=== PATIENT | female | born 1965 | race Caucasian/White ===

== ENCOUNTER → 2021-11-23 10:37 | Outpatient (BNVA) | payer OTHER, SELFPAY | PROVIDERS: PCP Internal Medicine; Visit Provider Nurse Practitioner Family | DX: R51.9 Headache, unspecified (principal); Z79.899 Other long term (current) drug therapy | CPT/HCPCS: 99212 ==

== ENCOUNTER 2022-03-19 14:11 | Outpatient (REF) | payer OTHER, SELFPAY ==
--- NOTE | ~2022-03-19 | MR_ITS ---
EXAMINATION: MR LUMBAR SPINE WITHOUT CONTRAST CLINICAL INFORMATION: 57-year-old with self-reported low back pain and bilateral radicular symptoms. COMPARISON: None TECHNIQUE: MRI of the lumbar spine was obtained using routine sequences without contrast. FINDINGS: CORONAL ALIGNMENT: There is moderate thoracolumbar levoscoliosis, convex to the left at L1-L2. SAGITTAL ALIGNMENT: The lumbosacral spine is anatomically aligned in the sagittal plane. LUMBOSACRAL JUNCTION: Normal. Five dom-adh-xgftwqd lumbar-type vertebral bodies. VERTEBRAL BODIES: Normal height. DISC SPACES AND ENDPLATES: Vwvc-cw-ubbodwuv intervertebral disc space height loss at L4-L5 with disc desiccation. Remaining intervertebral disc space heights are well maintained. There is disc desiccation at L1-L2. Peyi-fa-gwcjhnqr anterolateral spondylosis is noted, asymmetric to the right, at L1-L2, L2-L3 and L3-L4. SPINAL CANAL: No abnormal developmental findings. BONE MARROW: No suspicious marrow-replacing process or bone marrow edema. Minor type I degenerative marrow signal changes along the endplates anteriorly at L2-L3 and minor type II signal changes at L2-L3 and L4-L5. CONUS MEDULLARIS: Terminates at T12-L1. Morphology and signal are normal. INTRADURAL NERVE ROOTS: Within normal limits. L5-S1: Shallow right subarticular to foraminal disc protrusion noted with tiny annular fissure noted without neural impingement. Right paravertebral disc osteophyte complex also noted. Xgvu-dx-hvulpbsp left-sided facet arthropathy noted. No significant canal or neural foraminal stenosis. L4-L5: Small central disc protrusion with mild flattening of the central dural sac with T2 hyperintensity. No significant canal compromise. There is a broad-based left subarticular to inferior foraminal disc herniation without neural impingement. There is a mild right subarticular to foraminal disc protrusion without neural impingement. There is minor facet arthrosis bilaterally with mild bilateral foraminal narrowing without neural impingement. L3-L4: Mild, shallow left subarticular to foraminal disc protrusion without neural impingement. No significant facet arthrosis, canal or neural foraminal stenosis. L2-L3: Small right paramedian to subarticular disc protrusion without neural impingement. Very small left inferior foraminal disc protrusion without neural impingement. No significant facet arthrosis, canal or neural foraminal stenosis. L1-L2: Minor right paramedian disc osteophyte complex and tiny left foraminal disc protrusion. No facet arthrosis, canal or neural foraminal stenosis. T12-L1: Normal disc contour. No facet arthrosis, canal or neural foraminal stenosis. PARASPINAL/RETROPERITONEAL: The paravertebral soft tissues appear unremarkable. Subcentimeter bilateral simple-appearing renal cysts. Limited evaluation.?No specific follow up recommended based on the current ACR Best Practice Guidelines.? MR/MR lumbar spine wo con IMPRESSION: 1. Moderate thoracolumbar levoscoliosis with otherwise normal spinal alignment. 2. Multilevel spondylosis and discogenic degenerative change as described above, with multilevel disc protrusions without definite neural impingement as detailed by level above. 3. Tbvi-ho-dtamdlxt facet arthrosis on the left at L5-S1 and minor facet arthrosis at L4-L5 bilaterally. No significant lumbar canal or neural foraminal stenosis.
== END 2022-03-19 14:12 | disposition home or self-care (01) ==
LOC: HO.MRI 14:11
PROVIDERS: Visit Provider Nurse Practitioner Family
DX: M54.50 Low back pain, unspecified (principal); R20.2 Paresthesia of skin
CPT/HCPCS: 72148

== ENCOUNTER 2022-05-24 13:50 | Outpatient (REF) | payer OTHER, SELFPAY ==
--- NOTE | ~2022-05-24 | XR_ITS ---
EXAMINATION: XR CERVICAL SPINE CLINICAL INFORMATION: Cervicalgia. COMPARISON: None. TECHNIQUE: AP, lateral (flexion, neutral, extension), both oblique, swimmers, Fuchs, and open mouth odontoid views of the cervical spine. FINDINGS: 3 mm anterolisthesis of C3 on C4 increases to 5 mm with flexion and remains 3 mm with extension. 1 mm anterolisthesis of C7 on T1 is unchanged with flexion and extension. Alignment is otherwise normal. Vertebral body heights are normal. No fractures are evident. There is also intervertebral disc height at most levels, most notably at C5-C6 and C6-C7, associated with prominent endplate osteophytes and uncovertebral osteophytes as well as endplate sclerosis. There is more mild degenerative disc disease at C3-C4, C4-C5, and C7-T1. There is multilevel facet arthropathy, most notably on the left at C2-C3 and C3-C4, the right at C4-C5 and C5-C6, and C7-T1 bilaterally. Uncovertebral osteophytes produce neural foraminal encroachment at C5-C6 and C6-C7 bilaterally. Prevertebral soft tissues are normal. XR/XR cervical spine w flex/ext IMPRESSION: Degenerative disc disease is most notable at C5-C6 and C6-C7 with bilateral neural foraminal encroachment by uncovertebral osteophytes. Moderate multilevel facet arthropathy. Anterolisthesis of C3 on C4 by 3 mm increases to 5 mm with flexion.
== END 2022-05-24 13:51 | disposition home or self-care (01) ==
LOC: HO.XRAY 13:50
PROVIDERS: PCP Internal Medicine; Visit Provider Nurse Practitioner Family
DX: M54.2 Cervicalgia (principal); M54.50 Low back pain, unspecified
CPT/HCPCS: 72052

== ENCOUNTER 2022-07-23 10:17 | Outpatient (REF) | payer OTHER, SELFPAY ==
--- NOTE | ~2022-07-23 | MR_ITS ---
EXAMINATION: MR CERVICAL SPINE WITHOUT CONTRAST CLINICAL INFORMATION: Neck pain. COMPARISON: X-ray dated 05/24/2022. TECHNIQUE: Multiplanar, multisequential imaging of the cervical spine was performed without contrast. FINDINGS: VERTEBRAL BODIES AND PARASPINAL SOFT TISSUES: There is a mild anterolisthesis at the C3-C4 level with minimal endplate edema. Leftward curvature of the cervical spine evident. There is significant disc space narrowing with endplate spurring at the C5-C6 and C6-C7 levels. Very mild posterior subluxation evident at the C5-C6 level. There are no compression fractures. The paraspinal soft tissues are normal. The vertebral artery flow-voids are maintained. The lung apices are clear. CERVICOMEDULLARY JUNCTION AND VISUALIZED POSTERIOR FOSSA: The craniovertebral junction and imaged portions of the brain demonstrate no acute abnormality. No cord signal change or syrinx is seen. SPINAL LEVELS: C2-C3: Minimal anterolisthesis and moderate left-sided facet arthropathy. No disc protrusion, central canal stenosis, or foraminal narrowing. C3-C4: Mild anterolisthesis and unroofed disc bulge without central canal stenosis. Mild right-sided facet arthropathy and moderate left-sided facet degeneration. Mild left foraminal narrowing. C4-C5: Anterior endplate spurring. Shallow disc-osteophyte complex with facet arthropathy resulting in very mild encroachment upon the central canal. Rnbe-uz-zlhtxuxb right foraminal narrowing. C5-C6: Broad-based disc-osteophyte complex with facet arthropathy results in moderate central canal stenosis and mild cord distortion. Significant bilateral foraminal narrowing due to uncovertebral joint spurring. C6-C7: Szkiypiq-bz-qkulzm degenerative disc disease and shallow disc-osteophyte complex without central canal stenosis. Xruu-xc-fkziffzu foraminal narrowing, worse on the right side. C7-T1: Minimal anterior subluxation. No focal disc protrusion or central canal stenosis. Ibds-qp-mlvunbft facet arthropathy without foraminal encroachment. MR/MR cervical spine wo con IMPRESSION: 1. Multilevel cervical spondylosis, most significant at the C5-C6 level with moderate central canal stenosis and severe bilateral foraminal narrowing. 2. Edqehnea-bh-imawop degenerative disc disease at the C6-C7 level without central canal stenosis. 3. Moderate left-sided facet arthropathy at the C2-C3 and C3-C4 levels. Leftward curvature of the cervical spine. Very mild endplate edema at the C3-C4 level with a mild anterolisthesis.
== END 2022-07-23 10:18 | disposition home or self-care (01) ==
LOC: HO.MRI 10:17
PROVIDERS: Visit Provider Nurse Practitioner Family
DX: M54.2 Cervicalgia (principal); R20.2 Paresthesia of skin; R51.9 Headache, unspecified
CPT/HCPCS: 72141

== ENCOUNTER → 2022-10-01 13:05 | Outpatient (BNVA) | payer OTHER, SELFPAY | PROVIDERS: PCP Internal Medicine; Visit Provider Nurse Practitioner Family | DX: M54.2 Cervicalgia (principal); M54.50 Low back pain, unspecified; R51.9 Headache, unspecified; R20.2 Paresthesia of skin ==

== ENCOUNTER → 2023-02-04 13:04 | Outpatient (BNVA) | payer OTHER, SELFPAY | PROVIDERS: PCP Internal Medicine; Visit Provider Nurse Practitioner Family | DX: M54.2 Cervicalgia (principal); M54.50 Low back pain, unspecified; R51.9 Headache, unspecified; R20.2 Paresthesia of skin ==

== ENCOUNTER 2023-06-17 13:03 | Outpatient (AMB) | payer OTHER, SELFPAY ==
--- NOTE | 2023-06-17 13:06 | MHC.OFFVIS ---
Intake Vital Signs 06/17/23 13:08 Height 5 ft 3 in Weight 127 lb 8 oz BMI 22.6 BP 118/70 Blood Pressure Location Rt brachial Position Sitting Pulse 55 Pulse Source Pulse Oximeter Pulse Oximetry (%) 98 Oxygen Delivery Method Room Air Intake Visit Reasons: 3-4m follow up-LVM Intake Note: Pt presents today in fup , states no improvements on headaches and chronic pain Allergies IV CONTRAST DYE Allergy (Uncoded 10/01/22 13:13) Anaphylaxis Medication List - Last Reconciled 06/17/23 by Berta Alvarez, VERIFIER OPERATOR alendronate 70 mg PO QWEEK baclofen 10 mg PO TID PRN 30 days calcium carbonate (Calcium) 600 mg PO DAILY cholecalciferol (vitamin D3) (Baby Vitamin D3) 10 mcg PO DAILY cyclosporine 0.05% (Restasis) 1 drp ophthalmic (eye) BID magnesium oxide 400 mg PO DAILY metoprolol succinate ER 100 mg PO DAILY pravastatin 40 mg PO DAILY riboflavin (vitamin B2) 400 mg PO DAILY tobramycin-dexamethasone 0.3-0.1 % 0 drps ophthalmic (eye) HPI HPI Comments History of Present Illness Details 58-yr-old female presents for f/u visit. She is scheduled to undergo left bunion repair in Jun. She was recently started on Minoxidil for hair loss- by derm. She is f/b ophthalmology- currently being tx'd for dry eye, gritty feeling, red eyes Pt reports she continues to have a constant headache. She had one episode of left eye- vision turning white than seeing a kaleidoscope of colors- this lasted just a few minutes. She has been having stabbing pain in the left oriental orthodox region- wonders if this could be a subclinical shingles infection- states her eye provider mentioned this. She is wondering about getting the shingles vaccine- plans to have her flu vaccine later today. She notes she has stabbing pain elsewhere in her body as well. Recent BLAYNE, ESR, CRP, RF- WNL. In the past- she tried amitriptyline and nortriptyline- was ineffective and not tolerated. 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 Review of Systems Const All systems reviewed & are unremarkable except as noted in HPI and below Physical Exam Vital Signs: Last Vital Signs Pulse 55 06/17/23 13:08 BP 118/70 06/17/23 13:08 Pulse Ox 98 06/17/23 13:08 Oxygen Delivery Method Room Air 06/17/23 13:08 BMI result Body Mass Index 22.6 Const General: cooperative and no acute distress Orientation/consciousness: patient oriented x3 HEENT Head: Yes normocephalic Resp Effort & Inspection: normal respiratory effort and able to speak in complete sentences Neuro General: patient oriented x3, gait normal and CN's II-XI intact bilaterally Cognition (Neuro): normal cognition Motor exam (neuro): 5/5 motor strength present throughout Psych Appearance: grossly normal Mental Status: mental status grossly normal Speech and movement: Normal speech and movement present Affect: normal affect Attitude: cooperative Thought process: Normal thought process present Thought content: Normal thought content present Insight: Good insight present (Psych) Judgement: Good judgement present (Psych) Assessment & Plan Assessment & Plan (1) Chronic migraine without aura: Code(s): G43.709 - Chronic migraine without aura, not intractable, without status migrainosus (2) Visual aura: Code(s): H53.9 - Unspecified visual disturbance Plan Suspect pt's 1 transient episode of visual aura is likely migraine aura- if reoccurs, consider head imaging. Discussed that there are new options to manage chronic migraine like headaches, including preventive agents such as Emgality or Ajovy and acute agents such as Ubrelvy or Nurtec. She may also benefit form trying a neuromodulation device for preventive and acute tx of migraine- such as Nerivio. Pt is concerned about tolerance, drug interactions, ADRs, pt would like to discuss w/ Dr Maharaj before deciding. Pt is on Metoprolol for BP control. Previous migraine tx trials- amitriptyline and nortriptyline- was ineffective and not tolerated. Would avoid Aimovig d/t risk for worsening constipation. Triptans contraindicated d/t HTN/HLD. F/u in 4-6 months or sooner prn. Coding Level of Care Code Est Pt Level 3 (39814) Diagnoses Chronic migraine without aura G43.709 Visual aura H53.9
[2023-06-17 13:08] VITALS: BP 118/70; PULSE 55; O2SAT 98; BMI 22.6
== END 2023-06-17 14:02 | disposition home or self-care (01) ==
PROVIDERS: PCP Internal Medicine; Visit Provider Nurse Practitioner Family
DX: G43.709 Chronic migraine without aura, not intractable, without status migrainosus (principal); H53.9 Unspecified visual disturbance
CPT/HCPCS: 99213

== ENCOUNTER → 2023-06-17 13:03 | Outpatient (BNVA) | payer OTHER, SELFPAY | PROVIDERS: PCP Internal Medicine; Visit Provider Nurse Practitioner Family | DX: M54.2 Cervicalgia (principal); M54.50 Low back pain, unspecified; R51.9 Headache, unspecified; R20.2 Paresthesia of skin; G25.81 Restless legs syndrome; R63.4 Abnormal weight loss ==

== ENCOUNTER 2023-10-28 12:57 | Outpatient (AMB) | payer OTHER, SELFPAY ==
--- NOTE | 2023-10-28 13:05 | MHC.OFFVIS ---
Intake Vital Signs 10/28/23 13:06 Height 5 ft 3 in Pulse 59 Pulse Source Pulse Oximeter Pulse Oximetry (%) 98 Oxygen Delivery Method Room Air Intake Visit Reasons: 4 mnts f/u appt-Conf Intake Note: Patient presents for 4 month follow up. patient still having the migraines,spoke to pcp about the shots offered. Allergies IV CONTRAST DYE Allergy (Uncoded 10/28/23 13:11) Anaphylaxis Medication List - Last Reconciled 10/28/23 by PRACHI Day alendronate 70 mg PO QWEEK baclofen 10 mg PO TID PRN 30 days calcium carbonate (Calcium) 600 mg PO DAILY cholecalciferol (vitamin D3) (Baby Vitamin D3) 10 mcg PO DAILY cyclosporine 0.05% (Restasis) 1 drp ophthalmic (eye) BID magnesium oxide 400 mg PO DAILY metoprolol succinate ER 100 mg PO DAILY minoxidil mg PO pravastatin 40 mg PO DAILY riboflavin (vitamin B2) 400 mg PO DAILY tobramycin-dexamethasone 0.3-0.1 % 0 drps ophthalmic (eye) HPI HPI Comments History of Present Illness Details 58-yr-old female presents for f/u visit. Pt denies any significant interval medical changes. Pt reports that she is having more headaches, either left or right temples, shooting/stabbing pains. The headache can last for a few days. Sometimes this can be a/w red/bloody eyes. She can still ahve body pains. She does have some stress r/t work- has decided to leave her company- next year when the company moves. She is interested in trying a CGRP MaB, but would like to discuss further. 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 Exam Vital Signs: Last Vital Signs Pulse 59 10/28/23 13:06 Pulse Ox 98 10/28/23 13:06 Oxygen Delivery Method Room Air 10/28/23 13:06 Const General: cooperative and no acute distress Orientation/consciousness: patient oriented x3 Resp Effort & Inspection: normal respiratory effort and able to speak in complete sentences Neuro General: patient oriented x3 Cranial nerves: Yes CN's II-XII intact bilaterally Cognition (Neuro): normal cognition Psych Appearance: grossly normal Mental Status: mental status grossly normal Speech and movement: Normal speech and movement present Affect: normal affect Attitude: cooperative Assessment & Plan Assessment & Plan (1) Chronic migraine without aura: Code(s): G43.709 - Chronic migraine without aura, not intractable, without status migrainosus (2) Visual aura: Code(s): H53.9 - Unspecified visual disturbance (3) Cervical spinal stenosis: Code(s): M48.02 - Spinal stenosis, cervical region (4) Paresthesias: Code(s): R20.2 - Paresthesia of skin (5) Cervicalgia: Code(s): M54.2 - Cervicalgia Plan Start Emgality 240mg sc x's 1, then 120mg sc q month. In hopes this reduces migraine burden, as well as visual auras and cervicalgia. Riboflavin and Magnesium Pt is on Metoprolol for BP control. Previous migraine tx trials- amitriptyline and nortriptyline- was ineffective and not tolerated. Would avoid Aimovig d/t risk for worsening constipation. Triptans contraindicated d/t HTN/HLD. Future considerations- prn gepant for caute tx. F/u in 3-4 months or sooner prn. Medications: New galcanezumab-gnlm (Emgality Pen) 240 mg (2 mL) subcut ONCE 2 mL 0RF 30 days Coding Level of Care Code Est Pt Level 4 (10019) Diagnoses Chronic migraine without aura G43.709 Visual aura H53.9 Cervical spinal stenosis M48.02 Paresthesias R20.2 Cervicalgia M54.2
[2023-10-28 13:06] VITALS: PULSE 59; O2SAT 98
== END 2023-10-28 14:08 | disposition home or self-care (01) ==
PROVIDERS: PCP Internal Medicine; Visit Provider Nurse Practitioner Family
DX: G43.709 Chronic migraine without aura, not intractable, without status migrainosus (principal); H53.9 Unspecified visual disturbance; M48.02 Spinal stenosis, cervical region; R20.2 Paresthesia of skin; M54.2 Cervicalgia
CPT/HCPCS: 99214

== ENCOUNTER → 2023-10-28 12:57 | Outpatient (BNVA) | payer OTHER, SELFPAY | PROVIDERS: PCP Internal Medicine; Visit Provider Nurse Practitioner Family ==

== ENCOUNTER 2024-02-29 11:41 | Outpatient (AMB) | payer OTHER, SELFPAY ==
--- NOTE | 2024-02-29 11:42 | MHC.OFFVIS ---
Vital Signs 02/29/24 11:48 Height 5 ft 3 in Weight 127 lb BMI 22.5 BP 115/62 Blood Pressure Location Rt brachial Position Sitting Pulse 61 Pulse Source Pulse Oximeter Pulse Oximetry (%) 98 Oxygen Delivery Method Room Air Intake Visit Reasons: Follow up-CONF Intake Note: Patient presents for f/u. Emgality questions Allergies IV CONTRAST DYE Allergy (Uncoded 10/28/23 13:11) Anaphylaxis Medication List - Last Reconciled 02/29/24 by PRACHI Day alendronate 70 mg PO QWEEK baclofen 10 mg PO TID PRN 30 days calcium carbonate (Calcium 600) 600 mg PO DAILY cholecalciferol (vitamin D3) (Baby Vitamin D3) 10 mcg PO DAILY cyclosporine 0.05% (Restasis) 1 drp ophthalmic (eye) BID galcanezumab-gnlm (Emgality Pen) 240 mg (2 mL) subcut ONCE 30 days metoprolol succinate ER 100 mg PO DAILY minoxidil mg PO pravastatin 40 mg PO DAILY tobramycin-dexamethasone 0.3-0.1 % 0 drps ophthalmic (eye) HPI Comments Details: 58-yr-old female presents for f/u visit. Pt denies any significant interval medical changes. Pt has not started the Emgality yet- states something always seemed to come up to prevent her doing it. Worried about risk for prolonged side effects d/t it being a monthly injection. Would not want to try an oral gepant, as concerned about possible liver or renal effects. Also she did not realize that the Emgality needed to be refrigerated- and so she stored it at room temp since it was picked up in October. She shows pharmacy medication slip where the note for it to be refrigerated is covered by another line written in red. She did not recall our previous conversation about the Emgality needing to be refrigerated. She continues to have a constant migranous headache. She has been having more left eye pain- she wonders if this is ocular migraine. She is clenching her jaw- currently using an invisalign retainer but this is thinner than her previous mouth guard for bruxism. She feels much of this is r/t her high-stress job. Her legs have been shaking, weak, and restless. She is trying to walk, bike more. 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 Exam Vital Signs: Last Vital Signs Pulse 61 02/29/24 11:48 BP 115/62 02/29/24 11:48 Pulse Ox 98 02/29/24 11:48 Oxygen Delivery Method Room Air 02/29/24 11:48 BMI result Body Mass Index 22.5 Const General: cooperative and no acute distress Orientation/consciousness: patient oriented x3 Resp Effort & Inspection: normal respiratory effort and able to speak in complete sentences Neuro General: patient oriented x3 Cranial nerves: Yes CN's II-XII intact bilaterally Cognition (Neuro): normal cognition Psych Appearance: grossly normal Mental Status: mental status grossly normal Speech and movement: Normal speech and movement present Affect: normal affect Attitude: cooperative Assessment & Plan Assessment & Plan (1) Chronic migraine without aura: Code(s): G43.709 - Chronic migraine without aura, not intractable, without status migrainosus Category: Medical (2) Visual aura: Code(s): H53.9 - Unspecified visual disturbance Category: Medical (3) Restless leg syndrome: Code(s): G25.81 - Restless legs syndrome Category: Medical (4) Bruxism: Code(s): F45.8 - Other somatoform disorders Category: Medical Plan Discussed trying Qulipta- pt declines. Again start Emgality 240mg sc x's 1, then 120mg sc q month. Will reorder loading dose. Pt will need injection training- and states will need to stay in office to be monitored afterwards. Advised to purchase OTC Benadryl 25mg caps to have on hand before initial injection. Goal- In hopes this reduces migraine burden, as well as visual auras and cervicalgia. Riboflavin and Magnesium Pt is on Metoprolol for BP control. Previous migraine tx trials- amitriptyline and nortriptyline- was ineffective and not tolerated. Would avoid Aimovig d/t risk for worsening constipation. Triptans contraindicated d/t HTN/HLD. Future considerations- prn gepant for acute tx. For bruxism: Continue Invisalign retainer- advised to talk w/ her dentists about replacing w/ a more substantial mouth guard. Future considerations- PT, dry needling, Botox tx. F/u in 6 months or sooner prn. Medications: Refilled galcanezumab-gnlm (Emgality Pen) 240 mg (2 mL) subcut ONCE 30 days 2 mL 0RF Coding Level of Care Code Est Pt Level 4 (82152) Diagnoses Chronic migraine without aura G43.709 Visual aura H53.9 Restless leg syndrome G25.81 Bruxism F45.8
[2024-02-29 11:48] VITALS: BP 115/62; PULSE 61; O2SAT 98; BMI 22.5
== END 2024-02-29 12:34 | disposition home or self-care (01) ==
PROVIDERS: PCP Internal Medicine; Visit Provider Nurse Practitioner Family
DX: G43.709 Chronic migraine without aura, not intractable, without status migrainosus (principal); H53.9 Unspecified visual disturbance; G25.81 Restless legs syndrome; F45.8 Other somatoform disorders
CPT/HCPCS: 99214

== ENCOUNTER → 2024-02-29 11:41 | Outpatient (BNVA) | payer OTHER, SELFPAY | PROVIDERS: PCP Internal Medicine; Visit Provider Nurse Practitioner Family ==

== ENCOUNTER 2024-09-28 12:58 | Outpatient (AMB) | payer OTHER, SELFPAY ==
--- NOTE | 2024-09-28 13:01 | MHC.OFFVIS ---
Vital Signs 09/28/24 13:02 Height 5 ft 3 in Weight 126 lb BMI 22.3 BP 110/70 Blood Pressure Location Rt brachial Position Sitting Pulse 73 Pulse Source Pulse Oximeter Pulse Oximetry (%) 97 Oxygen Delivery Method Room Air Intake Visit Reasons: Follow Up Intake Note: Patient presents for follow up. Allergies IV CONTRAST DYE Allergy (Uncoded 09/28/24 13:03) Anaphylaxis Medication List - Last Reconciled 09/28/24 by PRACHI Day alendronate 70 mg PO QWEEK baclofen 10 mg PO TID PRN 30 days calcium carbonate (Calcium 600) 600 mg PO DAILY cholecalciferol (vitamin D3) (Baby Vitamin D3) 10 mcg PO DAILY cyclosporine 0.05% (Restasis) 1 drp ophthalmic (eye) BID metoprolol succinate ER 100 mg PO DAILY minoxidil takes half perfluorohexyloctane (PF) 100% (Miebo (PF)) 1 drp ophthalmic (eye) QID pravastatin 40 mg PO DAILY tobramycin-dexamethasone 0.3-0.1 % 0 drps ophthalmic (eye) HPI Comments Details: 58-yr-old female presents for f/u visit. Pt denies any significant interval medical changes. Patient did take the loading dose of Emgality 240 mg. She states she did not notice much benefit. She felt on edge after taking it. She is still hesitant about the medication being in her system for so long. She reports her PCP did give her a sample of Nurtec, which she has tried at the onset of visual aura, and found to be helpful. She continues to have daily headache/migraine. She is not sure if she has so much headache due to her work stress, poor sleep. She does have dry eye, and is using lubricating eye drops. She is followed by Optometry. She has been referred for ophthalmology consult to evaluate bilateral narrow drainage angle. She generally does not use OTC NSAIDs or Tylenol- when she was younger, her fiance related to using naproxen frequently and masking s/s cardiac signs or symptoms. 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 Exam Vital Signs: Last Vital Signs Pulse 73 09/28/24 13:02 BP 110/70 09/28/24 13:02 Pulse Ox 97 09/28/24 13:02 Oxygen Delivery Method Room Air 09/28/24 13:02 BMI result Body Mass Index 22.3 Const General: cooperative and no acute distress Orientation/consciousness: patient oriented x3 Resp Effort & Inspection: normal respiratory effort and able to speak in complete sentences Neuro General: patient oriented x3 Cranial nerves: Yes CN's II-XII intact bilaterally Cognition (Neuro): normal cognition Psych Appearance: grossly normal Mental Status: mental status grossly normal Speech and movement: Normal speech and movement present Affect: normal affect Attitude: cooperative Assessment & Plan Assessment & Plan (1) Chronic migraine without aura: Code(s): G43.709 - Chronic migraine without aura, not intractable, without status migrainosus Category: Medical (2) Visual aura: Code(s): H53.9 - Unspecified visual disturbance Category: Medical (3) Restless leg syndrome: Code(s): G25.81 - Restless legs syndrome Category: Medical (4) Bruxism: Code(s): F45.8 - Other somatoform disorders Category: Medical Plan For acute migraine treatment: Advise patient to start Nurtec for acute migraine treatment, as she has already taken the sample and found it to be well tolerable effective. Patient informed this will require insurance prior authorization. Migraine treatment contraindications: Triptans contraindicated d/t HTN/HLD. For chronic migraine prevention: Discontinue Emgality- ineffective, though effect may be limited due to short course of trial and patient is anxiety related to treatment regimen. Riboflavin and Magnesium Continue Metoprolol- ordered for HTN management. Previous migraine tx trials- amitriptyline and nortriptyline- was ineffective and not tolerated. Migraine treatment contraindications: Would avoid Aimovig d/t risk for worsening constipation. Would avoid CG RP MaBs in general due to patient's hesitancy regarding long duration of action. Future considerations: Atogepant. For bruxism and cervicalgia: Monitor effect of optimizing migraine treatment as above. Invisalign retainer- previously advised to talk w/ her dentists about replacing w/ a more substantial mouth guard. Future considerations- PT, dry needling, Botox tx. For sleep/RLS s/s: Monitor clinically. F/u in 6 months or sooner prn. Medications: New rimegepant (Nurtec ODT) 75 mg PO ONCE PRN 16 tabs 3RF migraine headache 30 days MDD 1 tab rimegepant (Nurtec ODT) 75 mg PO ONCE PRN 16 tabs 3RF migraine headache 30 days MDD 1 tab Coding Level of Care Code Est Pt Level 4 (36529) Diagnoses Chronic migraine without aura G43.709 Visual aura H53.9 Restless leg syndrome G25.81 Bruxism F45.8
[2024-09-28 13:02] VITALS: BP 110/70; PULSE 73; O2SAT 97; BMI 22.3
--- NOTE | 2024-09-28 13:14 | MHC.OFFVIS ---
Vital Signs 09/28/24 13:02 Height 5 ft 3 in Weight 126 lb BMI 22.3 BP 110/70 Blood Pressure Location Rt brachial Position Sitting Pulse 73 Pulse Source Pulse Oximeter Pulse Oximetry (%) 97 Oxygen Delivery Method Room Air Intake Visit Reasons: Follow Up Allergies IV CONTRAST DYE Allergy (Uncoded 09/28/24 13:03) Anaphylaxis Medication List - Last Reconciled 09/28/24 by PRACHI Day alendronate 70 mg PO QWEEK baclofen 10 mg PO TID PRN 30 days calcium carbonate (Calcium 600) 600 mg PO DAILY cholecalciferol (vitamin D3) (Baby Vitamin D3) 10 mcg PO DAILY cyclosporine 0.05% (Restasis) 1 drp ophthalmic (eye) BID metoprolol succinate ER 100 mg PO DAILY minoxidil takes half perfluorohexyloctane (PF) 100% (Miebo (PF)) 1 drp ophthalmic (eye) QID pravastatin 40 mg PO DAILY tobramycin-dexamethasone 0.3-0.1 % 0 drps ophthalmic (eye) PFSH Surgical History History of bunionectomy Family History Father Stroke Dementia Hypertension Kidney disease Mother Hypertension Brain tumor Social History Household Members: None Alcohol intake: current Alcohol intake frequency: does not drink Patient Tobacco Use Status: Former Tobacco user Current occupational status: employed 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
--- OUTSIDE RECORDS SUMMARY | 2024-09-28 13:15 | XMS_ITS | Encounter Summary ---
Author Organization [facility] Address [address] [place] [address] Care Team Providers Care Head Wood Grinder Name Role Phone Shaheen Maharaj Primary Care Provider [phone] Reason for Visit * Reason Comments Follow-up Osteoporosis Encounter Details Date Type Department Care Team (Late st Contact Info) Description 04/10/2024 11:00 AM EDT Follow-Up [facility] Department of Endocrinology [address] [place] [address] Sukhjinder Guzmán MD Luthra, Pooja, MD [address] [facility] [place] [address] Disorder of bone density and structure, unspecified (Primary Dx) Social History Tobacco Use Types Packs/Day Years Used Date Smoking Tobacco: Former Smokeless Tobacco: Former Tobacco Cessation:Counseling Given: Not Answered Alcohol Use Standard Drinks/Week Comments Yes 0 (1 standard drink = 0.6 oz pur e alcohol) Comments No Sex and Gender Information Value Date Recorded Sex Assigned at Female 08/02/2022 8:33 PM EST Legal Sex Female 10:49 AM EST Gender Identity Female 08/02/2022 8:33 PM EST Sexual Orientation Not on file COVID-19 Exposure Response Date Recorded In the last 10 days, have yo u been in contact with someone who was confirmed or suspected to have Coronavirus/COVID-19? No / Unsure 04/10/2024 10:48 AM EDT documented as of this encounter Last Filed Vital Signs Vital Sign Reading Time Taken Comments Blood Pressure 130/78 04/10/2024 11:05 AM EDT Pulse 55 04/10/2024 11:05 AM EDT Temperature - - Respiratory Rate - - Oxygen Saturation - - Inhaled Oxygen Concentration - - Weight 57.3 kg (126 lb 4.8 oz) 04/10/2024 11:05 AM EDT Height 159.5 cm (5' 2.8 ) 04/10/2024 11:05 AM ED T Body Mass Index 22.52 04/10/2024 11:05 AM EDT documented in this encounter Patient Instructions * Patient Instructions* Josefina Dobson MD - 04/10/2024 11:00 AM EDT Please continue fosamax for another year. Repeat fasting labs in 1 year. Please continue vitamin D3 2000 unit sdaily with your Multivitamin. Please try to get calcium in your diet. Can take 300- 450 mg of calcium in addition. documented in this encounter Progress Notes * Josefina Dobson MD - 04/10/2024 11:00 AM EDT [facility] Osteoporosis Follow up note Chief Complaint Patient presents with Follow-up Osteoporosis HPI Silvia Carr is a 59 y.o. female who presents for follow-up evaluation of osteoporosis. Patient was last seen by Dr. Hanna in June 2022. I reviewed the prior records. Treatment history: February 2020-Fosamax 70 mg once a week. She does have occasional GI symptoms however attributes it to her IBS. Had EGD and colonoscopy and has a hiatal hernia. Fracture history: None Risk Factors: none Interval Medical History: Since their last visit here, the patient denies new falls, fractures, emergency room visits, bone pain, prolonged steroid use, hospitalizations, new dental problems, or major changes in medical history. Has history of chronic calcium oxalate stones. Not on hydrochlorothiazide. Last episode was in Aug 2023. Had a recent USG which did not show any stones. - Follow with Dr Narayan (urologist in [facility]) Mother has osteopenia and sister has osteoporosis. Nutrition: MVI= 2000 units of D3 ( just started taking it). Currently taking calcium via food- yogurt and milk- at least 2servings a day . Physical Activities: she swims ~ 3x per week she states she walks about 2-3 times a week X 30 minutes. Dental : Denies having any dental issues. Up-to-date with dental care. Had a new crown placement recently. DXA 12/27/23 [facility] (images reviewed with patient) FINDINGS: AP SPINE L1-L4: Current: BMD 1.051 g/cm2, Z-score 0.0, T-score -1.2, osteopenia, 10.9% increase from previous, 4.6% increase from baseline (<5% change is not significant). Prior: BMD 0.948 g/cm2. Baseline: BMD 1.005 g/cm2. LEFT FEMUR, NECK: Current: BMD 0.737 g/cm2, Z-score -0.9, T-score -2.2, osteopenia. Prior: BMD 0.756 g/cm2. Baseline: BMD 0.801 g/cm2. LEFT FEMUR, TOTAL: Current: BMD 0.785 g/cm2, Z-score -0.9, T-score -1.8, osteopenia, 3.8% decrease from previous, 5.9% decrease from baseline (<5% change is not significant). Prior: BMD 0.816 g/cm2. Baseline: BMD 0.834 g/cm2. Allergies Allergen Reactions Iodinated Contrast Media Anaphylaxis Erythromycin Nausea And Vomiting and Nausea Only Current Outpatient Medications Medication Sig Dispense Refill cholecalciferol, vitamin D3, (VITAMIN D3 ORAL) Take by mouth daily. Liquid cycloSPORINE (Restasis) 0.05 % ophthalmic emulsion Restasis 0.05 % eye drops in a dropperette metoprolol succinate XL (TOPROL-XL) 100 mg 24 hr tablet metoprolol succinate ER 100 mg tablet,extended release 24 hr minoxidiL (LONITEN) 2.5 mg tablet Take 1.25 mg by mouth in the morning. traMADoL (ULTRAM) 50 mg tablet Take 1 tablet by mouth every 6 (six) hours as needed. alendronate (FOSAMAX) 70 mg tablet Take 1 tablet (70 mg total) by mouth every 7 days. Take in the morning with a full glass of water, on an empty stomach, and do not take anything else by mouth or lie down for the next 30 min. 12 tablet 3 Emgality Pen 120 mg/mL pen injector INJECT 2 PENS INTO SKIN ONCE A MONTH (Patient not taking: Reported on 04/10/2024) pravastatin (PRAVACHOL) 40 mg tablet (Patient not taking: Reported on 04/10/2024) No current facility-administered medications for this visit. Past Medical History: Diagnosis Date Arthritis Balance problems Bladder problem Hypertension IBS (irritable bowel syndrome) Kidney stones Muscle spasm Muscle weakness Numbness and tingling Past Surgical History: Procedure Laterality Date BUNIONECTOMY 2017 Rt COLONOSCOPY KIDNEY STONE SURGERY Family History Problem Relation Age of Onset Osteopenia Mother Hypertension Mother Cancer Mother Brain Hip fracture Mother Dementia Father Hypertension Father Stroke Father Cancer Father Hypertension Sister Alzheimer's disease Maternal Grandmother Cancer Maternal Grandmother Alzheimer's disease Paternal Grandmother Social History Socioeconomic History Marital status: Single Tobacco Use Smoking status: Former Smokeless tobacco: Former Substance and Sexual Activity Alcohol use: Yes Drug use: Never Social Determinants of Health Tobacco Use: Medium Risk (04/10/2024) Patient History Smoking Tobacco Use: Former Smokeless Tobacco Use: Former Review of Systems Objective Vitals: 04/10/24 1105 BP: 130/78 Pulse: 55 Body mass index is 22.52 kg/m??. Physical Exam Constitutional: Appearance: Normal appearance. Eyes: Pupils: Pupils are equal, round, and reactive to light. Cardiovascular: Rate and Rhythm: Normal rate. Pulses: Normal pulses. Heart sounds: Normal heart sounds. Pulmonary: Effort: Pulmonary effort is normal. Breath sounds: Normal breath sounds. Musculoskeletal: General: No tenderness or deformity. Normal range of motion. Cervical back: Normal range of motion and neck supple. LABS: Results for orders placed or performed in visit on 03/20/24 ALBUMIN (Q) Result Value Ref Range Albumin 4.8 3.6 - 5.1 g/dL ALKALINE PHOSPHATASE, BONE SPECIFIC (Q) Result Value Ref Range [facility] ALKALINE PHOSPHATASE BONE SPECIFIC 11.8 5.6 - 29.0 mcg/L CALCIUM (Q) Result Value Ref Range [facility] CALCIUM 9.4 8.6 - 10.4 mg/dL CALCIUM, RANDOM URINE (W/ CREATININE) (Q) Result Value Ref Range [facility] CALCIUM/CREATININE RATIO 27 10 - 320 mg/g creat [facility] CALCIUM, RANDOM URINE 0.9 See Note: mg/dL [facility] CREATININE, RANDOM URINE 33 20 - 275 mg/dL CREATININE (Q) Result Value Ref Range [facility] CREATININE 0.85 0.50 - 1.05 mg/dL EGFR 78 > OR = 60 mL/min/1.73m2 VITAMIN D,25-OH,TOTAL,IA (Q) Result Value Ref Range [facility] VITAMIN D,25-OH,TOTAL,IA 32 30 - 100 ng/mL C TELOPEPTIDE (CTX) (Q) Result Value Ref Range [facility] C TELOPEPTIDE (CTX) 248 see note pg/mL Assesment/ Plan: 1. Disorder of bone density and structure, unspecified Patient is a 59-year-old female with history of calcium oxalate stones and osteopenia. She continues to take some calcium in her diet and vitamin D 2000 units while her multivitamin. She continues brittni on Fosamax 70 mg once a week since February 2020 and has been tolerating it well. Last bone density was done in. She continues to be on alendronate since in November 2023 which shows osteopenia at the spine and significant improvement of almost 10% prior to her previous bone density. Hip bone density appears to bestable. At this time she is advised to continue the Fosamax 70 mg once a week. Advised to repeat fasting labs in 1 year. If the labs are stable and she is not on any high risk medications, will consider discontinuing Fosamax at that time for a drug holiday. Patient is agreeablewith the plan. Patient Instructions Please continue fosamax for another year. Repeat fasting labs in 1 year. Please continue vitamin D3 2000 unit sdaily with your Multivitamin. Please try to get calcium in your diet. Can take 300- 450 mg of calcium in addition. - C TELOPEPTIDE (CTX) (Q); Future - ALBUMIN (Q); Future - ALKALINE PHOSPHATASE, BONE SPECIFIC (Q); Future - CALCIUM (Q); Future - CALCIUM, RANDOM URINE (W/ CREATININE) (Q); Future - CREATININE (Q); Future - CREATININE, RANDOM URINE (Q); Future - VITAMIN D,25-OH,TOTAL,IA (Q); Future - C TELOPEPTIDE (CTX) (Q) - ALBUMIN (Q) - ALKALINE PHOSPHATASE, BONE SPECIFIC (Q) - CALCIUM (Q) - CALCIUM, RANDOM URINE (W/ CREATININE) (Q) - CREATININE (Q) - CREATININE, RANDOM URINE (Q) - VITAMIN D,25-OH,TOTAL,IA (Q) - alendronate (FOSAMAX) 70 mg tablet; Take 1 tablet (70 mg total) by mouth every 7 days. Take in the morning with a full glass of water, on an empty stomach, and do not take anything else by mouth orlie down for the next 30 min. Dispense: 12 tablet; Refill: 3 I spent 30 minutes managing the patient including pre-visit review of labwork and previous notes, actual patient visit including reviewing recent patient history, performing physical exam, thoroughlyreviewing labwork results with the patient, discussing treatment options and selecting a treatment regimen which will be maintained until the next visit. That time also includes note writing and ordering of labwork to be performed prior to the next visit. Orders Placed This Encounter Procedures C TELOPEPTIDE (CTX) (Q) Standing Status: Future Number of Occurrences: 1 Standing Expiration Date: 04/10/2025 Order Specific Question: Release to patient Answer: Immediate ALBUMIN (Q) Standing Status: Future Number of Occurrences: 1 Standing Expiration Date: 04/10/2025 Order Specific Question: Release to patient Answer: Immediate ALKALINE PHOSPHATASE, BONE SPECIFIC (Q) Standing Status: Future Number of Occurrences: 1 Standing Expiration Date: 04/10/2025 Order Specific Question: Release to patient Answer: Immediate CALCIUM (Q) Standing Status: Future Number of Occurrences: 1 Standing Expiration Date: 04/10/2025 Order Specific Question: Release to patient Answer: Immediate CALCIUM, RANDOM URINE (W/ CREATININE) (Q) Standing Status: Future Number of Occurrences: 1 Standing Expiration Date: 04/10/2025 Order Specific Question: Release to patient Answer: Immediate CREATININE (Q) Standing Status: Future Number of Occurrences: 1 Standing Expiration Date: 04/10/2025 Order Specific Question: Release to patient Answer: Immediate CREATININE, RANDOM URINE (Q) Standing Status: Future Number of Occurrences: 1 Standing Expiration Date: 04/10/2025 Order Specific Question: Release to patient Answer: Immediate VITAMIN D,25-OH,TOTAL,IA (Q) Standing Status: Future Number of Occurrences: 1 Standing Expiration Date: 04/10/2025 Order Specific Question: Release to patient Answer: Immediate Return in about 1 year (around 04/10/2025). documented in this encounter Miscellaneous Notes * Addendum Note - Josefina Dobson MD - 04/10/2024 11:00 AM EDTAddended by: JOSEFINA DOBSON on: 08/30/2024 04:52 PM Modules accepted: Orders documented in this encounter Plan of Treatment Upcoming Encounters Date Type Department Care Team (Late st Contact Info) Description 04/24/2025 11:20 AM EDT Follow-Up [facility] [address] [place] [address] Josefina Dobson MD [address] [facility] [place] [address] Scheduled Orders Name Type Priority Associated Diagnoses Orde r Schedule ALBUMIN (Q) Lab Routine Disorder of bone density and structure, unspecified 1 Occurrences starting 04/10/2024 until 04/10/2025 ALKALINE PHOSPHATASE, BONE SPECIFIC (Q) Lab Routine Disorder of bone density and structure, unspecified 1 Occurrences starting 04/10/2024 until 04/10/2025 CALCIUM (Q) Lab Routine Disorder of bone density and structure, unspecified 1 Occurrences starting 04/10/2024 until 04/10/2025 CALCIUM, RANDOM URINE (W/ CREATININE) (Q) Lab Routine Disorder of bone density and structure, unspecified 1 Occurrences starting 04/10/2024 until 04/10/2025 CREATININE (Q) Lab Routine Disorder of bone density and structure, unspecified 1 Occurrences starting 04/10/2024 until 04/10/2025 CREATININE, RANDOM URINE (Q) Lab Routine Disorder of bone density and structure, unspecified 1 Occurrences starting 04/10/2024 until 04/10/2025 VITAMIN D,25-OH,TOTAL,IA (Q) Lab Routine Disorder of bone density and structure, unspecified 1 Occurrences starting 04/10/2024 until 04/10/2025 documented as of this encounter Visit Diagnoses Diagnosis Disorder of bone density and structure, unspecified- Primary documented in this encounter Care Teams Head Wood Grinder Relationship Specialty Start Date End Date Shaheen Maharaj [address] [place] [id number] PCP - General Internal Medicine 09/19/19 documented as of this encounter
--- OUTSIDE RECORDS SUMMARY | 2024-09-28 13:15 | XMS_ITS | Data Portability ---
Author Organization [place] - [facility], [facility] Address [address] [place] [address] Care Team Providers Care Geriatric Aide Name Role Phone JERMAINE SAEED Adjunct Business Instructor Unavailable GLENNY CASH Primary Care Provider [phone] Assessment No assessment recorded. Plan of Treatment Reminders Order Date Submit Date Provider Last Modified By Organization Details Last Modified Time Details Appointments [facility] TECH 20 2024 02:20P M Dr. Jermaine Saeed Not available Not available Not available Lab urinalysi s, dipstick 2018 019 In-Office Order, Internal Use Only DO Not Attach Compendium DO Not Attach Compendium, Do Not Delete/merge, [id number] 05/23/2019 11:01:00 pap, IG + HPV 2019 020 [facility], [address] [place] [address], [id number] 06/24/2020 07:39:09 urinalysi s, dipstick 2019 020 In-Office Order, Internal Use Only DO Not Attach Compendium DO Not Attach Compendium, Do Not Delete/merge, [id number] 06/18/2020 10:45:17 urinalysi s, dipstick 2021 022 In-Office Order, Internal Use Only DO Not Attach Compendium DO Not Attach Compendium, Do Not Delete/merge, [id number] 08/11/2022 14:04:13 pap, IG + HPV 2023 024 [facility], [address] [facility] [place], [id number] 10/17/2023 17:07:13 urinalysi s, dipstick 2023 024 In-Office Order, Internal Use Only DO Not Attach Compendium DO Not Attach Compendium, Do Not Delete/merge, [id number] 10/14/2023 14:02:16 Referral None recorded. Procedures None recorded. Surgeries None recorded. Imaging MAMMO, screening , digital, bilateral , w/ CAD 2018 019 [facility], [address] [place] [address], [place], [address], 05/17/2020 08:56:48 US, breast, bilateral 2018 019 [facility], [address] [place] [address], [place], [address], 07/17/2019 08:39:42 DEXA, axial skeleton 2018 019 [email or web address] , [address], [place], [address], 06/06/2019 09:14:01 MAMMO, screening , digital, bilateral , w/ CAD [email or web address] [facility] ([facility]) , [address], [place], [address], 06/18/2020 11:03:28 US, breast, bilateral 2019 020 [facility] , [address], [place], [address], 03/11/2021 05:27:56 MAMMO, screening , digital, bilateral , w/ CAD 2020 021 [facility] , [address], [place], [address], 07/13/2021 12:49:25 US, breast, bilateral 2020 021 [facility] , [address], [place], [address], 07/13/2021 12:56:51 MAMMO, screening , digital, bilateral , w/ CAD 2021 022 [facility] ([facility]) , [address], [place], [address], 08/11/2022 14:09:38 US, breast, bilateral 2021 022 [facility] ([facility]) , [address], [place], [address], 08/11/2022 14:09:38 MAMMO, screening , digital, bilateral , w/ CAD 2023 024 [facility] , [address], [place], [address], 10/14/2023 14:02:26 US, breast, bilateral 2023 024 [facility] ([facility] , [address], [place], [address], 12/30/2023 11:25:38 Medication Orders Imvexxy Maintenan ce Pack 4 mcg vaginal insert 2019 020 [facility][id number], [address] [place] [address], [address], 07/13/2021 11:58:24 estradiol 0.01% (0.1 mg/gram) vaginal cream 2021 022 [facility] #[id number], [address] [place] [address], [address], 08/11/2022 14:04:16 lidocaine 5 % topical cream 2021 022 [facility] #[id number], [address] [place], [address], 08/11/2022 14:04:16 estradiol 0.01% (0.1 mg/gram) vaginal cream 2023 Anne Marie [facility] #[id number], [address] [place], [address], 10/16/2023 12:36:46 Patient TargetsNo targets recorded. Patient Instructions Encounter Date Encounter Id Patient Instructions Last Modified By Organization Details Last Modified Time 05/23/2019 [id number] patient health questionnaire depression assessment* gbassell Not available 05/30/2019 10:11:55 breast self-exam : care instructions Not available 05/23/2019 11:01:01 tips to help you stay healthy Not available 05/23/2019 11:01:00 Patient presents for a well woman exam. Her history is remarkable for having several deaths in her family over the last 2-3 years. and her exam is normal. She has been counseled regarding Pap smear screening as per guidelines of every three years for cytology review with high risk HPV testing. I have recommended an annual Digital Bilateral Mammogram and an order sheet has been given to her. She has been counseled regarding menopausal symptoms including hot flushes, vaginal dryness, mood changes, and difficulty sleeping. She has been offered an appointment to speak to me specifically about these symptoms and some strategies to ease them if and when they occur. I have counseled her about the benefit of performing monthly self-breast exams. We spoke about the recommendation of daily Calcium supplementation and 2000iu of Vitamin D daily. She has been told to schedule a well woman Automatic Typewriter Inspector exam in one year and to call us with any question or concerns regarding her health and welfare. Working with Jing Llanos-- automobile contract clerk. great. working on diet changes. on probiotic and DGL, coQ10. off statins for muscle pain but no better. chronic depression. will consider genetic testing for meds. not suicidal or homicidal. pt does not want my input at this time. h/o Nutcracker syndrome with kidney . venogram done for abdominal pain. ? cause of UTI's. she was told she may need a stent at some point. Seeing Dr. Narayan for urology in [place], [place]. . She needs repeat BD. For chronic UTI, pt will do 6 months of antibiotic prophylaxis with urology but will use imvexxy 4mcg inserts for vagina. samples given x 1 month and pt will call for rx. Not available 05/23/2019 22:05:11 06/18/2020 [id number] atrophic vaginit is: care instructions Not available 06/18/2020 10:45:17 breast self-exam : care instructions Not available 06/18/2020 10:45:17 tips to help you stay healthy Not available 06/18/2020 10:45:17 Patient presents for a well woman exam. Her history is unremarkable and her exam is normal. She has been counseled regarding Pap smear screening as per guidelines of every three years for cytology review with high risk HPV testing. I have recommended an annual Digital Bilateral Mammogram and an order sheet has been given to her. She has been counseled regarding menopausal symptoms including hot flushes, vaginal dryness, mood changes, and difficulty sleeping. She has been offered an appointment to speak to me specifically about these symptoms and some strategies to ease them if and when they occur. I have counseled her about the benefit of performing monthly self-breast exams. We spoke about the recommendation of daily Calcium supplementation and 2000iu of Vitamin D daily. She has been told to schedule a well woman Automatic Typewriter Inspector exam in one year and to call us with any question or concerns regarding her health and welfare. Behavioral health screening completed and reviewed with patient. Positive findings. Patient {{is is not*}} in treatment and is currently {{on not on*}} medication. Recommend to continue with follow up care. Not available 06/18/2020 10:45:13 07/13/2021 [id number] breast self-exam : care instructions Not available 07/13/2021 12:49:08 tips to help you stay healthy Not available 07/13/2021 12:49:08 Patient presents for a well woman exam. Her history is unremarkable and her exam is normal. She has been counseled regarding Pap smear screening as per guidelines of every three years for cytology review with high risk HPV testing. I have recommended an annual Digital Bilateral Mammogram and an order sheet has been given to her. She has been counseled regarding menopausal symptoms including hot flushes, vaginal dryness, mood changes, and difficulty sleeping. She has been offered an appointment to speak to me specifically about these symptoms and some strategies to ease them if and when they occur. I have counseled her about the benefit of performing monthly self-breast exams. We spoke about the recommendation of 1000 mg of daily Calcium supplementation and 2000iu of Vitamin D daily. She has been told to schedule a well woman Automatic Typewriter Inspector exam in one year and to call us with any question or concerns regarding her health and welfare. Behavioral health screening completed and reviewed with patient. Negative findings. Not available 07/13/2021 12:28:38 08/11/2022 [id number] atrophic vaginit is: care instructions Not available 08/11/2022 14:04:13 breast self-exam : care instructions Not available 08/11/2022 14:04:13 tips to help you stay healthy Not available 08/11/2022 14:04:14 Patient presents for a well woman exam. Her history is unremarkable and her exam is normal. She has been counseled regarding Pap smear screening as per guidelines of every three years for cytology review with high risk HPV testing. I have recommended an annual Digital Bilateral Mammogram and an order sheet has been given to her. She has been counseled regarding menopausal symptoms including hot flushes, vaginal dryness, mood changes, and difficulty sleeping. She has been offered an appointment to speak to me specifically about these symptoms and some strategies to ease them if and when they occur. I have counseled her about the benefit of performing monthly self-breast exams. We spoke about the recommendation of daily Calcium supplementation and 2000iu of Vitamin D daily. She has been told to schedule a well woman Automatic Typewriter Inspector exam in one year and to call us with any question or concerns regarding her health and welfare. Behavioral health screening completed and reviewed with patient. Positive findings. Patient {{is* is not}} in treatment and is currently {{on not on*}} medication. Recommend to continue with follow up care. Not available 08/12/2022 21:40:28 10/14/2023 [id number] atrophic vaginit is: care instructions Not available 10/16/2023 12:36:43 breast self-exam : care instructions Not available 10/14/2023 14:02:13 tips to help you stay healthy Not available 10/14/2023 14:02:14 Patient presents for a well woman exam. Her history is unremarkable and her exam is normal. She has been counseled regarding Pap smear screening as per guidelines of every three years for cytology review with high risk HPV testing. I have recommended an annual Digital Bilateral Mammogram and an order sheet has been given to her. She has been counseled regarding menopausal symptoms including hot flushes, vaginal dryness, mood changes, and difficulty sleeping. She has been offered an appointment to speak to me specifically about these symptoms and some strategies to ease them if and when they occur. I have counseled her about the benefit of performing monthly self-breast exams. We spoke about the recommendation of daily Calcium supplementation and 2000iu of Vitamin D daily. She has been told to schedule a well woman Automatic Typewriter Inspector exam in one year and to call us with any question or concerns regarding her health and welfare. Behavioral health screening completed and reviewed with patient. Positive findings. Patient {{is* is not}} in treatment and is currently {{on not on*}} medication. Recommend to continue with follow up care. Not available 10/16/2023 12:37:21 Reason for Referral None Reported. Results Created Date Observation Date Name Description Value Unit Range Abnormal Flag Note LastModifiedBy Organization Detail LastModifiedTime 05/23/2005/23/2019 urina lysis , dipst ick Interpretati on negati ve Not Available In-Office Order Internal Use Only DO Not Attach Compendium DO Not Attach Compendium, Do Not Delete/merge, [id number] 05/23/2019 10:37:30 05/23/2005/23/2019 urina lysis , dipst ick Leukocytes Negati ve Not Available In-Office Order Internal Use Only DO Not Attach Compendium DO Not Attach Compendium, Do Not Delete/merge, [id number] 05/23/2019 10:37:30 05/23/2005/23/2019 urina lysis , dipst ick Nitrite negati ve Not Available In-Office Order Internal Use Only DO Not Attach Compendium DO Not Attach Compendium, Do Not Delete/merge, [id number] 05/23/2019 10:37:30 05/23/2005/23/2019 urina lysis , dipst ick Protein Negati ve Not Available In-Office Order Internal Use Only DO Not Attach Compendium DO Not Attach Compendium, Do Not Delete/merge, 05/23/2019 10:37:30 05/23/2005/23/2019 urina lysis , dipst ick Blood Negati ve Not Available In-Office Order Internal Use Only DO Not Attach Compendium DO Not Attach Compendium, Do Not Delete/merge, 05/23/2019 10:37:30 05/23/2005/23/2019 urina lysis , dipst ick Glucose Negati ve Not Available In-Office Order Internal Use Only DO Not Attach Compendium DO Not Attach Compendium, Do Not Delete/merge, 05/23/2019 10:37:30 05/23/2005/23/2019 urina lysis , dipst ick Appearance Clear Not Available In-Offi ce Order Internal Use Only DO Not Attach Compendium DO Not Attach Compendium, Do Not Delete/merge, 05/23/2019 10:37:30 05/23/2005/23/2019 urina lysis , dipst ick Color Yellow Not Available In-Office Order Internal Use Only DO Not Attach Compendium DO Not Attach Compendium, Do Not Delete/merge, 05/23/2019 10:37:30 06/18/2006/18/2020 pap, IG + HPV report Report Final Gynec ologi ubaldo Cytol ogy Repor t ----- ----- ----- ----- ----- ----- ----- ----- ----- ----- ----- ----- ThinP rep Pap Test, HPV Scree n, Refle x HPV Genot ype SPECI MEN ADEQU ACY: SATIS FACTO RY FOR EVALU ATION . INTER PRETA TION: NEGAT JODIE FOR INTRA EPITH ELIAL LESIO N OR PATRICA CUELLAR . Atrop hy Parti ally obscu ring infla mmati on Note: This Pap test was proce ssed by the dentoni joel nunez, but requi red anastacio Lee d: Heather Patel [place] (ASCP ) ----- ----- ----- ----- ----- ----- ----- ----- ----- ----- ----- ----- CLINI UBALDO CALIR IVAN N: LMP: NG Clini ubaldo Histo ry: PM Speci men Sourc e: Endo/ Ectoc ervix Previ ous Pap Date: 05/05 HPV RESUL TS: HPV mRNA E6/E7 Appro ernestine: 06/19 Negat jodie REF RANGE : Negat jodie CPT Codes : 09132 ICD Codes : Z01.4 19 Not Available [facility] [address] [place], [address] 06/24/2020 07:39:09 06/18/2006/18/2020 HPV DNA, high- risk HPV MRNA E6/E7 Negati ve negati ve APTIM A HPV assay detec ts 14 high risk HPV types (HPV 16,18 ,31,3 3,35, 39,45 ,51,5 2,56, 58,59 ,66,6 8). The assay is FDA appro ernestine for testi ng ThinP rep liqui d Pap vials but not FDA appro ernestine for detec ting HPV in SureP ath liqui d Pap speci mens. In-ho use valid ation has shown the assay can detec t all HPV types from this sourc e Not Available [facility] [address] [place], [address] 06/24/2020 07:39:13 06/18/2006/18/2020 urina lysis , dipst ick Leukocytes Trace Not Available In-Offi ce Order Internal Use Only DO Not Attach Compendium DO Not Attach Compendium, Do Not Delete/merge, [id number] 06/18/2020 10:29:01 06/18/20 20 06/18/2020 urina lysis , dipst ick Nitrite negati ve Not Available In-Office Order Internal Use Only DO Not Attach Compendium DO Not Attach Compendium, Do Not Delete/merge, [id number] 06/18/2020 10:29:01 06/18/2006/18/2020 urina lysis , dipst ick Urobilinogen Normal : 0.2 mg/dl Not Available In-Office Order Internal Use Only DO Not Attach Compendium DO Not Attach Compendium, Do Not Delete/merge, [id number] 06/18/2020 10:29:01 06/18/20 20 06/18/2020 urina lysis , dipst ick Protein Negati ve Not Available In-Office Order Internal Use Only DO Not Attach Compendium DO Not Attach Compendium, Do Not Delete/merge, [id number] 06/18/2020 10:29:06/18/20 20 06/18/2020 urina lysis , dipst ick pH 6.5 Not Available In-Office Order Internal Use Only DO Not Attach Compendium DO Not Attach Compendium, Do Not Delete/merge, [id number] 06/18/2020 10:29:06/18/20 20 06/18/2020 urina lysis , dipst ick Blood Negati ve Not Available In-Office Order Internal Use Only DO Not Attach Compendium DO Not Attach Compendium, Do Not Delete/merge, [id number] 06/18/2020 10:29:01 06/18/20 20 06/18/2020 urina lysis , dipst ick Specific [place] 1.010 Not Available In-Off ice Order Internal Use Only DO Not Attach Compendium DO Not Attach Compendium, Do Not Delete/merge, [id number] 06/18/2020 10:29:01 06/18/20 20 06/18/2020 urina lysis , dipst ick Ketone Negati ve Not Available In-Office Order Internal Use Only DO Not Attach Compendium DO Not Attach Compendium, Do Not Delete/merge, [id number] 06/18/2020 10:29:01 06/18/20 20 06/18/2020 urina lysis , dipst ick Bilirubin Negati ve Not Available In-Office Order Internal Use Only DO Not Attach Compendium DO Not Attach Compendium, Do Not Delete/merge, [id number] 06/18/2020 10:29:01 06/18/20 20 06/18/2020 urina lysis , dipst ick Glucose Negati ve Not Available In-Office Order Internal Use Only DO Not Attach Compendium DO Not Attach Compendium, Do Not Delete/merge, [id number] 06/18/2020 10:29:01 06/18/20 20 06/18/2020 urina lysis , dipst ick Appearance Clear Not Available In-Offi ce Order Internal Use Only DO Not Attach Compendium DO Not Attach Compendium, Do Not Delete/merge, [id number] 06/18/2020 10:29:01 06/18/20 20 06/18/2020 urina lysis , dipst ick Color Yellow Not Available In-Office Order Internal Use Only DO Not Attach Compendium DO Not Attach Compendium, Do Not Delete/merge, [id number] 06/18/2020 10:29:01 08/11/20 22 08/11/2022 urina lysis , dipst ick Leukocytes Negati ve Not Available In-Office Order Internal Use Only DO Not Attach Compendium DO Not Attach Compendium, Do Not Delete/merge, [id number] 08/11/2022 13:36:17 08/11/20 22 08/11/2022 urina lysis , dipst ick Nitrite negati ve Not Available In-Office Order Internal Use Only DO Not Attach Compendium DO Not Attach Compendium, Do Not Delete/merge, [id number] 08/11/2022 13:36:17 08/11/20 22 08/11/2022 urina lysis , dipst ick Urobilinogen Normal : 0.2 mg/dl Not Available In-Office Order Internal Use Only DO Not Attach Compendium DO Not Attach Compendium, Do Not Delete/merge, [id number] 08/11/2022 13:36:17 08/11/20 22 08/11/2022 urina lysis , dipst ick Protein Negati ve Not Available In-Office Order Internal Use Only DO Not Attach Compendium DO Not Attach Compendium, Do Not Delete/merge, [id number] 08/11/2022 13:36:17 08/11/20 22 08/11/2022 urina lysis , dipst ick pH 5.0 Not Available In-Office Order Internal Use Only DO Not Attach Compendium DO Not Attach Compendium, Do Not Delete/merge, [id number] 08/11/2022 13:36:17 08/11/20 22 08/11/2022 urina lysis , dipst ick Blood Negati ve Not Available In-Office Order Internal Use Only DO Not Attach Compendium DO Not Attach Compendium, Do Not Delete/merge, [id number] 08/11/2022 13:36:17 08/11/20 22 08/11/2022 urina lysis , dipst ick Specific [place] 1.025 Not Available In-Off ice Order Internal Use Only DO Not Attach Compendium DO Not Attach Compendium, Do Not Delete/merge, [id number] 08/11/2022 13:36:17 08/11/20 22 08/11/2022 urina lysis , dipst ick Ketone Negati ve Not Available In-Office Order Internal Use Only DO Not Attach Compendium DO Not Attach Compendium, Do Not Delete/merge, [id number] 08/11/2022 13:36:17 08/11/20 22 08/11/2022 urina lysis , dipst ick Bilirubin Negati ve Not Available In-Office Order Internal Use Only DO Not Attach Compendium DO Not Attach Compendium, Do Not Delete/merge, [id number] 08/11/2022 13:36:17 08/11/20 22 08/11/2022 urina lysis , dipst ick Glucose Negati ve Not Available In-Office Order Internal Use Only DO Not Attach Compendium DO Not Attach Compendium, Do Not Delete/merge, [id number] 08/11/2022 13:36:17 08/11/20 22 08/11/2022 urina lysis , dipst ick Appearance Clear Not Available In-Offi ce Order Internal Use Only DO Not Attach Compendium DO Not Attach Compendium, Do Not Delete/merge, [id number] 08/11/2022 13:36:17 08/11/20 22 08/11/2022 urina lysis , dipst ick Color Yellow Not Available In-Office Order Internal Use Only DO Not Attach Compendium DO Not Attach Compendium, Do Not Delete/merge, [id number] 08/11/2022 13:36:17 10/14/19 24 10/14/2023 THINP REP PAP TEST (IMAG ER), HPV SCREE N, REFLE X HPV 16,18 /45 report Report Final Gynec ologi ubaldo Cytol ogy Repor t ----- ----- ----- ----- ----- ----- ----- ----- ----- ----- ----- ----- ThinP rep Pap Test, HPV Scree n, Refle x HPV Genot ype SPECI MEN ADEQU ACY: SATIS FACTO RY FOR EVALU ATION . INTER PRETA TION: NEGAT JODIE FOR INTRA EPITH VICKI Benitez OR PATRICA CUELLAR . Atrop hy Elect kelsea Lee d: Rachna Cristina, [place]( CP) ----- ----- ----- ----- ----- ----- ----- ----- ----- ----- ----- ----- CLINI UBALDO INFOR IVAN N: LMP: NG Clini ubaldo Histo ry: RTN Biops y Date: NG Speci men Sourc e: Endo/ Ectoc ervix Previ ous Pap Date: 06/18 HPV RESUL TS: HPV mRNA E6/E7 25907 [id number] Appro ernestine: 10/17 Negat jodie REF RANGE : Negat jodie CPT Codes : 80937 ICD Codes : Z01.4 11, Z01.4 19 Not Available [facility] [address] [place], [address] 10/17/2023 17:07:13 10/14/1910/14/2023 HPV MRNA E6/E7 HPV MRNA E6/E7 Negati ve negati ve APTIM A HPV assay detec ts 14 high risk HPV types (HPV 16,18 ,31,3 3,35, 39,45 ,51,5 2,56, 58,59 ,66,6 8). The assay is FDA appro ernestine for testi ng ThinP rep liqui d Pap vials but not FDA appro ernestine for detec ting HPV in SureP ath liqui d Pap speci mens. In-ho use valid ation has shown the assay can detec t all HPV types from this sourc e Not Available [facility] [address] [place], [address] 10/17/2023 17:07:23 10/14/1910/14/2023 urina lysis , dipst ick Interpretati on negati ve Not Available In-Office Order Internal Use Only DO Not Attach Compendium DO Not Attach Compendium, Do Not Delete/merge, 10/14/2023 12:04:00 10/14/19 24 10/14/2023 urina lysis , dipst ick Leukocytes Negati ve Not Available In-Office Order Internal Use Only DO Not Attach Compendium DO Not Attach Compendium, Do Not Delete/merge, 10/14/2023 12:04:00 10/14/19 24 10/14/2023 urina lysis , dipst ick Nitrite negati ve Not Available In-Office Order Internal Use Only DO Not Attach Compendium DO Not Attach Compendium, Do Not Delete/merge, 10/14/2023 12:04:00 10/14/19 24 10/14/2023 urina lysis , dipst ick Urobilinogen Normal : 0.2 mg/dl Not Available In-Office Order Internal Use Only DO Not Attach Compendium DO Not Attach Compendium, Do Not Delete/merge, 10/14/2023 12:04:00 10/14/19 24 10/14/2023 urina lysis , dipst ick Protein Negati ve Not Available In-Office Order Internal Use Only DO Not Attach Compendium DO Not Attach Compendium, Do Not Delete/merge, 10/14/2023 12:04:00 10/14/19 24 10/14/2023 urina lysis , dipst ick pH 5.0 Not Available In-Office Order Internal Use Only DO Not Attach Compendium DO Not Attach Compendium, Do Not Delete/merge, 10/14/2023 12:04:00 10/14/19 24 10/14/2023 urina lysis , dipst ick Blood Negati ve Not Available In-Office Order Internal Use Only DO Not Attach Compendium DO Not Attach Compendium, Do Not Delete/merge, 10/14/2023 12:04:00 10/14/19 24 10/14/2023 urina lysis , dipst ick Specific [place] 1.020 Not Available In-Off ice Order Internal Use Only DO Not Attach Compendium DO Not Attach Compendium, Do Not Delete/merge, [id number] 10/14/2023 12:04:00 10/14/19 24 10/14/2023 urina lysis , dipst ick Ketone Negati ve Not Available In-Office Order Internal Use Only DO Not Attach Compendium DO Not Attach Compendium, Do Not Delete/merge, 10/14/2023 12:04:00 10/14/19 24 10/14/2023 urina lysis , dipst ick Bilirubin Negati ve Not Available In-Office Order Internal Use Only DO Not Attach Compendium DO Not Attach Compendium, Do Not Delete/merge, 10/14/2023 12:04:00 10/14/19 24 10/14/2023 urina lysis , dipst ick Glucose Negati ve Not Available In-Office Order Internal Use Only DO Not Attach Compendium DO Not Attach Compendium, Do Not Delete/merge, 10/14/2023 12:04:00 10/14/19 24 10/14/2023 urina lysis , dipst ick Appearance Clear Not Available In-Offi ce Order Internal Use Only DO Not Attach Compendium DO Not Attach Compendium, Do Not Delete/merge, 10/14/2023 12:04:00 10/14/19 24 10/14/2023 urina lysis , dipst ick Color Yellow Not Available In-Office Order Internal Use Only DO Not Attach Compendium DO Not Attach Compendium, Do Not Delete/merge, 10/14/2023 12:04:00 05/15/20 19 05/14/2019 mg scree kael digit al breas t randi- bilat eral HISTOR Y: Boyd rojas is 54 years old and is seen for screen ing. The boyd rojas has a histor y of left ultras ound core biopsy in 2016 and bilate ral needle biopsy in 2011 - benign . The boyd rojas has no person al histor y of breast or ovaria n cancer . The boyd rojas has no family histor y of breast cancer . FILMS COMPAR ED: The rasta rojas examin ation has been compar ed to prior imagin g studie s dated 2017 and 2016. RANDI STATEM ENT: 3d imagin g (digit al breast tomosy nthesi s) was used by the Radiol ogist in the interp retati on of this examin ation. Comput er-aid ed detect ion was utiliz ed by the radiol ogist in the interp retati on of this examin ation. 3D tomosy nthesi s digita l mammog raphic images were obtain ed using standa rd projec tions. MAMMOG [place] FINDIN GS: The breast s are hetero geneou sly dense, which may obscur e small masses . (ACR BIRADS densit y Catego ry c) * No suspic ious masses , calcif icatio ns or other abnorm alitie s are seen in either breast . IMPRES YANNICK: There is no mammog raphic eviden ce of malign primitivo. Routin e follow -up mammog clinton in 1 year is recomm ended. BIRADS Catego ry 1: Negati ve Thank you for referr ing your boyd rojas to us, Rosangela castle-Jordi toledo MD [id number] (Elect debbie gordon Signed - 2018 06:48) Copy: KEATON SAEED MD [facility]- [address] [facility] [address] [facility] [address] [place] [address] [phone] GLENNY Orellana MD [address] [facility] [address] [place] [address] [phone] [email or web address] [facility] [place] [address], [place], [address], 05/24/2019 08:08:52 07/17/20 19 07/16/2019 US, juan diego henderson HISTOR Y: Boyd rojas is 54 years old and is seen for screen ing. The boyd rojas has a histor y of left ultras ound core biopsy in , 2016 and bilate ral needle biopsy in y, 2011 - benign . The patien t has no person al histor y of breast or ovaria n cancer . The patien t has no family histor y of breast cancer . LAST TISSUE DENSIT Y The breast is hetero geneou sly dense, which may obscur e small masses . (ACR BIRADS densit y Catego ry c) * FILMS COMPAR ED: The presen t examin ation has been compar ed to prior imagin g studie s dated 2017, 2017 and 2016. ULTRAS OUND FINDIN GS: High-r es graysc angela sonogr aphy was perfor med with a high freque ncy linear transd ucer using standa rd protoc ol. All four quadra nts of the breast (s) includ ing areola and axilla ry areas were imaged . Findin g 1: Previo us screen ing shows an area of altere d echote xture in the left breast , 11 oclock . On the presen t examin ation, there is a stable area of altere d echote xture measur ing 3 millim eters in the left breast upper inner quadra nt at 11 oclock locate d 5 centim eters from the nipple . Parasitologist al echoge nicity is hypoec hoic. Findin g 2: Previo us screen ing shows an area of altere d echote xture in the left breast , retro- areola r locati on. On the presen t examin ation, there is a stable area of altere d echote xture measur ing 1 millim eter in the retro- areola r locati on of the left breast . Parasitologist al echoge nicity is echoge sully. There are no suspic ious solid or cystic lesion s in the right breast . IMPRES YANNICK: There is no sonogr aphic eviden ce of malign primitivo. Patien t should return for mammog raphic follow up as recomm ended on the most recent mammog pennie report . The patien t will receiv e a lay summar y of the result s of this breast imagin g exam. Lay summar ies for mammog pennie examin ations will also identi fy the patien ts person al breast tissue compos ition as requir ed by state law. BIRADS Catego ry 2: Benign Findin g(s) Thank you for referr ing your patien t to us, Leonarda Schneider MD [id number] (Elect debbie gordon Signed - 2018 08:32) Copy: GLENNY Orellana MD [address] [facility] [address] [place] [address] [phone] [facility] [address] [facility] [address], [place], [address], 07/17/2019 19:19:03 07/17/20 19 07/16/2019 DEXA, axial skele ton EXAMIN ATION: BONE DENSIT OMETRY CLINIC AL INDICA TION: Osteop enia. COMPAR LISA: Previo us BD dated 2016 and baseli ne BD dated 2013. TECHNI QUE: Dual-e nergy x-ray absorp tiomet ry was perfor med of the lumbar spine and left hip. The images are of good techni ubaldo qualit y. Summar y result s are attach ed. FINDIN GS: AP SPINE L1-L4: Curren t: BMD 0.927 g/cm2, Z-scor e -1.3, T-scor e -2.2, osteop enia, 4.5% decrea se from previo us, 7.8% decrea se from baseli ne (<5% change is not signif icant) . Prior: BMD 0.971 g/cm2. Baseli ne: BMD 1.005 g/cm2. LEFT FEMUR, NECK: Curren t: BMD 0.750 g/cm2, Z-scor e -1.0, T-scor e -2.1, osteop enia. Prior: BMD 0.764 g/cm2. Baseli ne: BMD 0.801 g/cm2. LEFT FEMUR, TOTAL: Curren t: BMD 0.801 g/cm2, Z-scor e -1.0, T-scor e -1.6, osteop enia, 2.0% decrea se from previo us, 4.0% decrea se from baseli ne (<5% change is not signif icant) . Prior: BMD 0.817 g/cm2. Baseli ne: BMD 0.834 g/cm2. IDENTI FIED RISK FACTOR S: Family histor y (paren t hip fractu re) low calciu m intake , menopa use, recurr ent falls, second caterina osteop orosis . HISTOR Y OF FRACTU RE: None listed . MEDICA TIONS: Calciu m or multiv itamin . Vitami n D. IMPRES YANNICK: 1. DIAGNO SIS: Osteop enia based on the lowest T-scor e value of -2.2 in the lumbar spine applyi ng World Health Organi zation criter ia. 2. 10-YEA R FRACTU RE RISK PREDIC TION, FRAX: Major osteop orotic fractu re (clini ubaldo spine, forear m, hip or should er) 15.0%. Hip fractu re 1.1%. RECOMM ENDATI ONS: 1. Treatm ent Recomm endati ons: NOF guidel makenzie recomm end consid eratio n for treatm ent in postme nopaus al women and men age 50 and older presen jeffrey with the follow ing: -A hip or verteb ral (clini ubaldo or morpho metric ) fractu re. -T-sco re less than or equal to -2.5 at the femora l neck or spine after approp riate evalua tion to exclud e second caterina causes . -Low bone mass at the hip or spine and a 10-yea r fractu re probab ility by FRAX of greate r than or equal to 3% for hip fractu re or greate r than or equal to 20% for major osteop orotic fractu re based on the [place] adapte d WHO algori thm. 2. Other Recomm endati ons: All treatm ent decisi ons requir e clinic al judgme nt and consid eratio n of indivi dual patien t factor s, includ ing patien t prefer ences, comorb iditie s, previo us drug use, risk factor s not captur ed in the FRAX model (e.g. frailt y, falls, vitami n D defici ency, increa sed bone turnov er, interv al signif icant declin e in bone densit y) and possib le under or overes timati on of fractu re risk by FRAX. 3. Future Scan Recomm endati on: People with diagno sed cases of osteop orosis or at high risk for fractu re should have regula r bone minera l densit y tests. For patijayme ts eligib le for Medica re, routin e testin g is allowe d once every 2 years. The testin g freque ncy can be increa sed to one year for patien ts who have rapidl y progre ssing diseas e, those who are receiv ing or discon tinuin g medica l therap y to restor e bone mass, or have additi onal risk factor s. Thank you for referr ing your boyd rojas to us, Geo cuadra MD [id number] (Elect debbie gordon Signed - 2018 12:11) Copy: GLENNY Orellana, [address] [facility] [address] [place] [address] [phone] [facility] [address] [facility] [address], [place], [address], 07/17/2019 19:19:03 05/17/20 20 05/16/2020 MAMMO , scree kael, tomos ynthe sis, bilat eral HISTOR Y: Boyd rojas is 55 years old and is seen for screen ing. The patien t has a histor y of left ultras ound core biopsy in , 2016 and bilate ral needle biopsy in 2011 - benign . The patijayme t has no person al histor y of breast or ovaria n cancer . The patien t has no family histor y of breast cancer . FILMS COMPAR ED: The presen t examin ation has been compar ed to prior imagin g studie s dated 2018 and 2017. RANDI STATEM ENT: 3d imagin g (digit al breast tomosy nthesi s) was used by the Radiol ogist in the interp retati on of this examin ation. Comput er-aid ed detect ion was utiliz ed by the radiol ogist in the interp retati on of this examin ation. 3D tomosy nthesi s digita l mammog raphic images were obtain ed using standa rd projec tions. MAMMOG [place] FINDIN GS: The breast s are hetero geneou sly dense, which may obscur e small masses . (ACR BIRADS densit y Catego ry c) * There are stable biopsy clips seen in both breast s. IMPRES YANNICK: There is no mammog raphic eviden ce of malign primitivo. Routin e follow -up mammog clinton in 1 year is recomm ended. The patijayme rojas will receiv e a lay summar y of the result s of this breast imagin g exam. Lay summar ies for mammog pennie examin ations will also identi fy the boyd tello person al breast tissue compos ition as requir ed by state law. BIRADS Catego ry 2: Benign Findin g(s) Thank you for referr ing your boyd rojas to us, Adia Ji MD [id number] (Elect debbie gordon Signed - 2019 08:47) Copy: GLENNY Orellana MD [address] [facility] [address] [place], [place] [id number] [phone] [email or web address] [facility] ([facility] [address] [facility] [address], [place], [address], 05/26/2020 07:23:48 03/11/20 21 01/30/2021 US, tram bobjuan diego HISTOR Y: Boyd rojas is 56 years old and is seen for screen ing. The boyd rojas has a histor y of left ultras ound core biopsy in , 2016 and bilate ral needle biopsy in 2011 - benign . The boyd rojas has no person al histor y of breast or ovaria n cancer . The patien t has no family histor y of breast cancer . LAST TISSUE DENSIT Y The breast is hetero geneou sly dense, which may obscur e small masses . (ACR BIRADS densit y Catego ry c) * FILMS COMPAR ED: The presen t examin ation has been compar ed to prior imagin g studie s dated 2018, 2017, 2017 and 2016. ULTRAS OUND FINDIN GS: High-r es graysc angela sonogr aphy was perfor med with a high freque ncy linear transd ucer using standa rd protoc ol. All four quadra nts of the breast (s) includ ing areola and axilla ry areas were imaged . Findin g 1: On the presen t examin ation, there is a stable area of altere d echote xture measur ing 3 millim eters seen in the left breast upper inner quadra nt at 11 oclock locate d 5 centim eters from the nipple . Parasitologist al echoge nicity is hypoec hoic. Findin g 2: On the presen t examin ation, there is a stable area of altere d echote xture measur ing 1 millim eter seen in the retro- areola r locati on of the left breast . Parasitologist al echoge nicity is echoge sully. Findin g 3: There is an avascu lar cyst with circum scribe d margin s measur ing .5 x .4 x .4 centim eters seen in the left breast upper inner quadra nt at 11 oclock locate d 2 centim eters from the nipple . Parasitologist al echoge nicity is anecho ic. There is increa sed sound transm ission . There are no suspic ious solid or cystic lesion s in the right breast . IMPRES YANNICK: Findin g 1: Stable area of altere d echote xture in the left breast upper inner quadra nt at 11 oclock locate d 5 centim eters from the nipple is benign . Findin g 2: Stable area of altere d echote xture in the retro- areola r locati on of the left breast is benign . Findin g 3: Cyst in the left breast upper inner quadra nt at 11 oclock locate d 2 centim eters from the nipple is benign . Patien t should return for mammog raphic follow up as recomm ended on the most recent mammog pennie report . Routin e follow -up mammog clinton in 1 year is recomm ended. The patien t will receiv e a lay summar y of the result s of this breast imagin g exam. Lay summar ies for mammog pennie examin ations will also identi fy the patien ts person al breast tissue compos ition as requir ed by state law. BIRADS Catego ry 2: Benign Findin g(s) Thank you for referr ing your patien t to us, Rosangela Quesada an-Jordi toledo MD [phone] (Elect debbie gordon Signed - 2020 04:26) Copy: GLENNY Orellana MD [address] [facility] [address] [place] [address] [phone] [facility] [address] [facility] [address], [place], [address], 03/11/2021 16:44:41 07/29/20 21 07/28/2021 DEXA, axial skele ton EXAMIN ATION: BONE DENSIT OMETRY CLINIC AL INDICA TION: Disord er of bone densit y and struct ure, unspec ified. COMPAR LISA: Previo us BD dated 2018 and baseli ne BD dated 2013. TECHNI QUE: Using a [employer] Advanc e DXA system (softw are versio n: 14.10) manufa ctured by [employer] System s CryptoSeal, dual-e nergy x-ray absorp tiomet ry was perfor med of the lumbar spine and left hip. The images are of good techni ubaldo qualit y. Summar y result s are attach ed. FINDIN GS: AP SPINE L1-L4: Curren t: BMD 0.948 g/cm2, Z-scor e -1.0, T-scor e -2.0, osteop enia, 2.3% increa se from previo us, 5.7% decrea se from baseli ne (<5% change is not signif icant) . Prior: BMD 0.927 g/cm2. Baseli ne: BMD 1.005 g/cm2. LEFT FEMUR, NECK: Curren t: BMD 0.756 g/cm2, Z-scor e -0.9, T-scor e -2.0, osteop enia. Prior: BMD 0.750 g/cm2. Baseli ne: BMD 0.801 g/cm2. LEFT FEMUR, TOTAL: Curren t: BMD 0.816 g/cm2, Z-scor e -0.8, T-scor e -1.5, osteop enia, 1.9% increa se from previo us, 2.2% decrea se from baseli ne (<5% change is not signif icant) . Prior: BMD 0.801 g/cm2. Baseli ne: BMD 0.834 g/cm2. IDENTI FIED RISK FACTOR S: Early menopa use, family histor y (paren t hip fractu re), recurr ent falls, second caterina osteop orosis . HISTOR Y OF FRACTU RE: None listed . MEDICA TIONS: Calciu m supple ments or multiv itamin , vitami n D, bispho sphona te. IMPRES YANNICK: 1. DIAGNO SIS: Osteop enia based on the lowest T-scor e value of -2.0 in the lumbar spine and femur neck applyi ng World Health Organi zation criter ia. 2. 10-YEA R FRACTU RE RISK PREDIC TION, FRAX: Not perfor med in this patien t on estrog en or bone buildi ng treatm ents. 3. Treatm ent Recomm endati ons: NOF guidel makenzie recomm end consid eratio n for treatm ent in postme nopaus al women and men age 50 and older presjayme murphy with the follow ing: -A hip or verteb ral (clini ubaldo or morpho metric ) fractu re. -T-sco re less than or equal to -2.5 at the femora l neck or spine after approp riate evalua tion to exclud e second caterina causes . -Low bone mass at the hip or spine and a 10-yea r fractu re probab ility by FRAX of greate r than or equal to 3% for hip fractu re or greate r than or equal to 20% for major osteop orotic fractu re based on the [place] adapte d WHO algori thm. 4. Other Recomm endati ons: All treatm ent decisi ons requir e clinic al judgme nt and consid eratio n of indivi dual patien t factor s, includ ing patien t prefer ences, comorb iditie s, previo us drug use, risk factor s not captur ed in the FRAX model (e.g. frailt y, falls, vitami n D defici ency, increa sed bone turnov er, interv al signif icant declin e in bone densit y) and possib le under or overes timati on of fractu re risk by FRAX. Additi onal medica l evalua tion for second caterina cause of low bone minera l densit y may be approp riate. FUTURE SCAN RECOMM ENDATI ON: People with diagno sed cases of osteop orosis or at high risk for fractu re should have regula r bone minera l densit y tests. For patien ts eligib le for Medica re, routin e testin g is allowe d once every 2 years. The testin g freque ncy can be increa sed to one year for patien ts who have rapidl y progre ssing diseas e, those who are receiv ing or discon tinuin g medica l therap y to restor e bone mass, or have additi onal risk factor s. Thank you for referr ing your boyd rojas to us, Cleveland chisholm MD [phone] (Elect debbie gordon Signed - 2020 07:47) Copy: KEATON SAEED MD [facility] [address] [facility] [address] [place] [address] [phone] GLENNY Orellana MD [address] [facility] [address] [place] [address] [phone] BOYD Rojas , [facility] ([facility] [address] [facility] [address], [place], [address], 07/31/2021 09:20:33 10/28/19 22 10/19/2021 MAMMO , scree kael, tomos ynthe sis, bilat eral HISTOR Y: Boyd rojas is 56 years old and is seen for screen ing. The boyd rojas has a histor y of left ultras ound core biopsy in er, 2016 and bilate ral needle biopsy in Januar y, 2012 - benign . The patien t has no person al histor y of breast or ovaria n cancer . The patien t has no family histor y of breast cancer . FILMS COMPAR ED: The presen t examin ation has been compar ed to prior imagin g studie s dated 2019 and 2018. RANDI STATE ENT: Comput er-aid ed detect ion was utiliz ed by the radiol ogist in the interp retati on of this examin ation. 3D tomosy nthesi s digita l mammog raphic images were obtain ed using standa rd projec tions. MAMMOG [place] FINDIN GS: The breast s are extrem juwan dense, which lowers the sensit ivity of mammog pennie. (ACR BIRADS densit y Catego ry d) * There are biopsy clips seen in both breast s. IMPRES YANNICK: There is no mammog raphic eviden ce of malign primitivo. Routin e follow -up mammog clinton in 1 year is recomm ended. The patien t will receiv e a lay summar y of the result s of this breast imagin g exam. Lay summar ies for mammog pennie examin ations will also identi fy the patien ts person al breast tissue compos ition as requir ed by state law. BIRADS Catego ry 2: Benign Findin g(s) ATTEST ATION STATE ENT: This study was interp reted by Dr. Fantasma Posadas workin g under the direct superv ision of Dr. Willie eng. I person ally review ed the images and the Reside nts prelim inary report and agree with the report as it is now presen angela. Thank you for referr ing your patien t to us, Willie eng MD [phone] (Elect debbie gordon Signed - 2021 11:54) Copy: KEATON SAEED MD [facility] [address] [facility] [place] [address] [phone] GLENNY Orellana MD [address] [facility] [address] [place] [address] [phone] [facility] [address] [facility] [address], [place], [address], 10/30/2021 09:53:36 06/28/20 22 06/11/2022 US, tram rojas, taraat eral HISTOR Y: Boyd rojas is 57 years old and is seen for screen ing. The patien t has a histor y of left ultras ound core biopsy in , 2016 and bilate ral needle biopsy in 2011 - benign . The patien t has no person al histor y of breast or ovaria n cancer . The patien t has no family histor y of breast cancer . LAST TISSUE DENSIT Y The breast is extrem juwan dense, which lowers the sensit ivity of mammog pennie. (ACR BIRADS densit y Catego ry d) * FILMS COMPAR ED: The presen t examin ation has been compar ed to prior imagin g studie s dated 2020 and 2017. ULTRAS OUND FINDIN GS: High-r es graysc angela sonogr aphy was perfor med with a high freque ncy linear transd ucer using standa rd protoc ol. All four quadra nts of the breast (s) includ ing areola and axilla ry areas were imaged . There is a stable avascu lar area of altere d echote xture measur ing 4 millim eters seen in the left breast upper inner quadra nt at 11 oclock locate d 5 centim eters from the nipple . There are no suspic ious solid or cystic lesion s in the right breast . IMPRES YANNICK: There is no sonogr aphic eviden ce of malign primitivo. Boyd t should return for mammog raphic follow up as recomm ended on the most recent mammog pennie report . The patien t will receiv e a lay summar y of the result s of this breast imagin g exam. Lay summar ies for mammog pennie examin ations will also identi fy the patijayme ts person al breast tissue compos ition as requir ed by state law. BIRADS Catego ry 2: Benign Findin g(s) Thank you for referr ing your patien t to us, Rachelle Clancy MD [phone] (Elect debbie gordon Signed - 2021 16:46) Copy: GLENNY Orellana MD [address] [facility] [address] [place] [address] [phone] BOYD Rojas , [facility] [address] [facility] [address], [place], [address], 07/02/2022 11:00:52 12/28/19 24 12/27/2023 DEXA, axial skele ton EXAMIN ATION: BONE DENSIT OMETRY CLINIC AL INDICA TION: Encoun ter for screen ing for osteop orosis . COMPAR LISA: Previo us BD dated 2020 and baseli ne BD dated 2013. TECHNI QUE: Using a [email or web address] y Advanc e DXA system (softw are versio n: 14.10) manufa ctured by [employer] s CryptoSeal, dual-e nergy x-ray absorp tiomet ry was perfor med of the lumbar spine and left hip. The images are of good techni ubaldo qualit y. Summar y result s are attach ed. FINDIN GS: AP SPINE L1-L4: Curren t: BMD 1.051 g/cm2, Z-scor e 0.0, T-scor e -1.2, osteop enia, 10.9% increa se from previo us, 4.6% increa se from baseli ne (<5% change is not signif icant) . Prior: BMD 0.948 g/cm2. Baseli ne: BMD 1.005 g/cm2. LEFT FEMUR, NECK: Curren t: BMD 0.737 g/cm2, Z-scor e -0.9, T-scor e -2.2, osteop enia. Prior: BMD 0.756 g/cm2. Baseli ne: BMD 0.801 g/cm2. LEFT FEMUR, TOTAL: Curren t: BMD 0.785 g/cm2, Z-scor e -0.9, T-scor e -1.8, osteop enia, 3.8% decrea se from previo us, 5.9% decrea se from baseli ne (<5% change is not signif icant) . Prior: BMD 0.816 g/cm2. Baseli ne: BMD 0.834 g/cm2. IDENTI FIED RISK FACTOR S: Early menopa use, second caterina osteop orosis , low calciu m intake . HISTOR Y OF FRACTU RE: None listed . MEDICA TIONS: Calciu m supple ments or multiv itamin , vitami n D, bispho sphona te. IMPRES YANNICK: 1. DIAGNO SIS: Osteop enia based on the lowest T-scor e value of -2.2 in the femora l neck applyi ng World Health Organi zation criter ia. 2. 10-YEA R FRACTU RE RISK PREDIC TION, FRAX: Not perfor med in this patien t on estrog en or bone buildi ng treatm ents. 3. Treatm ent Recomm endati ons: NOF guidel makenzie recomm end consid eratio n for treatm ent in postme nopaus al women and men age 50 and older presen jeffrey with the follow ing: -A hip or verteb ral (clini ubaldo or morpho metric ) fractu re. -T-sco re less than or equal to -2.5 at the femora l neck or spine after approp riate evalua tion to exclud e second caterina causes . -Low bone mass at the hip or spine and a 10-yea r fractu re probab ility by FRAX of greate r than or equal to 3% for hip fractu re or greate r than or equal to 20% for major osteop orotic fractu re based on the [place] adapte d WHO algori thm. 4. Other Recomm endati ons: All treatm ent decisi ons requir e clinic al judgme nt and consid eratio n of indivi dual patien t factor s, includ ing patien t prefer ences, comorb iditie s, previo us drug use, risk factor s not captur ed in the FRAX model (e.g. frailt y, falls, vitami n D defici ency, increa sed bone turnov er, interv al signif icant declin e in bone densit y) and possib le under or overes timati on of fractu re risk by FRAX. Additi onal medica l evalua tion for second caterina cause of low bone minera l densit y may be approp riate. FUTURE SCAN RECOMM ENDATI ON: People with diagno sed cases of osteop orosis or at high risk for fractu re should have regula r bone minera l densit y tests. For patien ts eligib le for Medica re, routin e testin g is allowe d once every 2 years. The testin g freque ncy can be increa sed to one year for patien ts who have rapidl y progre ssing diseas e, those who are receiv ing or discon tinuin g medica l therap y to restor e bone mass, or have additi onal risk factor s. Thank you for referr ing your boyd rojas to us, Kevin suarez MD [phone] (Elect debbie evan Signed - 2023 14:15) Copy: HARPREET COX MD [facility]- [facility] Y- [place] [address] [place] [address] [phone] BOYD Rojas , YANDEL [facility] ([facility]) [address] [facility] [address], [place], [address], 12/28/2023 15:57:32 12/30/19 24 12/21/2023 MAMMO , scree kael, tomos ynthe sis, bilat eral HISTOR Y: Boyd rojas is 58 years old and is seen for screen ing. The boyd rojas has a histor y of left ultras ound core biopsy in , 2016 and bilate ral needle biopsy in , 2011 - benign . The boyd rojas has no person al histor y of breast or ovaria n cancer . The boyd rojas has no family histor y of breast cancer . FILMS COMPAR ED: The presen t examin ation has been compar ed to prior imagin g studie s dated 2019 and 2021. RANDI CANO ENT: Comput er-aid ed detect ion was utiliz ed by the radiol ogist in the interp retati on of this examin ation. 3D tomosy nthesi s digita l mammog raphic images were obtain ed using standa rd projec tions. MAMMOG CLINTON FINDIN GS: The breast s are extrem juwan dense, which lowers the sensit ivity of mammog pennie. (ACR BIRADS densit y Catego ry d) * No suspic ious masses , calcif icatio ns or other abnorm alitie s are seen in either breast . There are no signif icant change s from the prior study. IMPRES YANNICK: There is no mammog raphic eviden ce of malign primitivo. Routin e follow -up mammog clinton in 1 year is recomm ended. The boyd rojas will receiv e a lay summar y of the result s of this breast imagin g exam. Lay summar ies for mammog pennie examin ations will also identi fy the boyd tello person al breast tissue compos ition as requir ed by state law. BIRADS Catego ry 1: Negati ve Thank you for referr ing your boyd rojas to us, Leonarda Schneider MD [phone] (Elect debbie gordon Signed - 2023 11:03) Copy: GLENNY Orellana MD [facility] [address] [place] [address] [phone] BOYD Rojas [facility] [address] [facility] [address], [place], [address], 01/02/2024 20:04:33 12/30/19 24 12/21/2023 US, juan diego henderson HISTOR Y: Boyd rojas is 58 years old and is seen for screen ing. The boyd rojas has a histor y of left ultras ound core biopsy in , 2016 and bilate ral needle biopsy in 2011 - benign . The boyd rojas has no person al histor y of breast or ovaria n cancer . The boyd rojas has no family histor y of breast cancer . LAST TISSUE DENSIT Y The breast s are extrem juwan dense, which lowers the sensit ivity of mammog pennie. (ACR BIRADS densit y Catego ry d) * FILMS COMPAR ED: The presen t examin ation has been compar ed to prior imagin g studie s dated 2021 and 2023. ULTRAS OUND FINDIN GS: High-r es graysc angela sonogr aphy was perfor med with a high freque ncy linear transd ucer using standa rd protoc ol. All four quadra nts of the breast (s) includ ing areola and axilla ry areas were imaged . Previo us screen ing shows an area of altere d echote xture in the left breast , 11 oclock . On the presen t examin ation, there is a stable avascu lar area of altere d echote xture measur ing 4 millim eters in the left breast upper inner quadra nt at 11 oclock locate d 5 centim eters from the nipple . Findin g remain s unchan ged from the prior study. Area corres ponds to site of prior benign biopsy (2011) . There are no suspic ious solid or cystic lesion s in the right breast . IMPRES YANNICK: There is no sonogr aphic eviden ce of malign primitivo. Patien t should return for mammog raphic follow up as recomm ended on the most recent mammog pennie report . The patien t will receiv e a lay summar y of the result s of this breast imagin g exam. Lay summar ies for mammog pennie examin ations will also identi fy the patien ts person al breast tissue compos ition as requir ed by state law. BIRADS Catego ry 2: Benign Thank you for referr ing your patien t to us, Leonarda Schneider MD [phone] (Elect debbie gordon Signed - 2023 11:05) Copy: GLENNY Orellana MD [facility] [address] [place] [address] [phone] CHARUJAYME Rojas [facility] [address] [facility] [address], [place], [address], 01/02/2024 20:04:34 Result Notes None recorded. Problems Name Problem SNOMED Code Status Onset Date Resolution Date Notes Provider Name and Address Organization Details Recorded Time Abnormal nipple 695349216 Active JERMAINE SAEED MD 175 [facility], [address] [place] [address], [place], [address], [facility] 6 16:09:27 Osteopenia 956576062 Active JERMAINE SAEED MD 175 [facility], [address] [place] [address], [place], [address], [facility] 6 21:05:51 Gastroesophage al reflux disease 779149630 Active 2016 Val Hernandez [facility] 7 08:40:53 Muscle weakness 50846188 Active 2018 Jimena Livingston [facility] 9 10:42:04 Kidney stone 78030423 Active 2021 Chica Crow [facility] 2 13:30:37 Depressive disorder 11074106 Active 2012 Rosario Delcid [facility] 6 14:42:26 Essential hypertension 99739452 Active 2012 Rosario Delcid [facility] 6 14:42:26 Problem Notes None recorded. Procedures Surgical History Date Name Laterality Status Provider Name and Address Organization Details Recorded Time 4 Date of Last Mammogram completed Kristina Green [facility] 12/30/2023 11:32:12 4 Date of Last Pap Smear completed Rosario Childress [facility] 11/17/2023 13:35:14 7 Unlisted px foot/toes completed Jimena Livingston [facility] 05/18/2018 10:55:50 7 Orthopedic Surgery completed Antoinette Aly [facility] 07/13/2021 11:58:26 6 [id number] completed JERMAINE SAEED MD [address] [facility], [address] [place] [address], [place], [address], [facility] 04/12/2016 19:56:37 6 [id number] completed JERMAINE SAEED MD 175 [facility], [address] [place] [address], [place], [address], [facility] 04/12/2016 19:56:37 6 [id number] completed JERMAINE SAEED MD [address] [facility], [address] [place] [address], [place], [address], [facility] 04/12/2016 19:56:37 6 [id number] completed JERMAINE SAEED MD [address] [facility], [address] [place] [address], [place], [address], [facility] 04/12/2016 19:56:37 6 [id number] completed JERMAINE SAEED MD [address] [facility], [address] [place] [address], [place], [address], [facility] 04/12/2016 19:56:37 6 [id number] completed JERMAINE SAEED MD 175 [facility], [address] [place] [address], [address], [facility] 04/12/2016 19:56:37 6 [id number] completed JERMAINE SAEED MD 175 [facility], [address] [place] [address], [place], [address], [facility] 04/07/2016 15:19:13 2 Breast Biopsy completed Val Hernandez [facility] 05/03/2017 09:02:44 1 Breast Biopsy completed Val Hernandez [facility] 05/03/2017 09:01:56 Imaging Results Imaging Date Name Status LastModified by [email or web address] [facility] Details LastModified Time 05/14/2019 mg screening digital breast randi- bilateral completed [address] [facility] [place] [address], [place], [address], 05/24/2019 08:08:52 07/16/2019 US, breast, bilateral completed [facility] ([facility]) [address] [facility] [address], [place], [address], 07/17/2019 19:19:03 07/16/2019 DEXA, axial skeleton completed [facility] ([facility]) [address], [place], [address], 07/17/2019 19:19:03 05/16/2020 MAMMO, screening, tomosynthesis, bilateral completed [address] [facility] ([facility]) [address] [facility] [address], [place], [address], 05/26/2020 07:23:48 01/30/2021 US, breast, bilateral completed [facility] ([facility]) [address], [place], [address], 03/11/2021 16:44:41 07/28/2021 DEXA, axial skeleton completed [facility] ([facility]) [address] [facility] [address], [place], [address], 07/31/2021 09:20:33 10/19/2021 MAMMO, screening, tomosynthesis, bilateral completed [facility] ([facility]) [address], [place], [address], 10/30/2021 09:53:36 06/11/2022 US, breast, bilateral completed [facility] ([facility]) [address], [place], [address], 07/02/2022 11:00:52 12/27/2023 DEXA, axial skeleton completed [facility] ([facility]) [address] [facility] [address], [place], [address], 12/28/2023 15:57:32 12/21/2023 MAMMO, screening, tomosynthesis, bilateral completed [facility] ([facility]) [address] [facility] [address], [place], [address], 01/02/2024 20:04:33 12/21/2023 US, breast, bilateral completed [facility] ([facility]) [address], [place], [address], 01/02/2024 20:04:34 Procedure Notes None recorded. Medical Equipment None Reported. Allergies Allergen ID Allergen Name Allergen Category Reaction Reaction Severity Criticality Documentation Date Start Date Code Code System Note Provider Name and Address Organization Details Recorded Time 558156 erythromy tiffany medicatio n vomiting Not available Not available 12/21/20142013 4053 RxNorm ABDOM INAL PAIN Val Hernandez [facility] 7 08:59:58 046131 Iodinated contrast media (substanc e) medicatio n anaphylax is Not available Not available 12/21/20142013 16093 2004 SNOMED Val Hernandez [facility] 7 09:00:06 Medications Name Sig Start Date Stop Date Status Note LastModified by Organization Details LastModified Time amoxicill in 500 mg capsule active Not Available Not Available Not Available Proctosol HC 2.5 % rectal cream with applicato r active Not Available Not Available Not Available nitrofura ntoin macrocrys jonathan 50 mg capsule 05/23 completed Not Available Not Available Not Available Carafate 100 mg/mL oral suspensio n 05/05 completed Not Available Not Available Not Available trazodone 50 mg tablet 05/05 completed Not Available Not Available Not Available azithromy tiffany 250 mg tablet TAKE 2 TABLETS BY MOUTH TODAY, THEN TAKE 1 TABLET DAILY FOR 4 DAYS 10/11 completed Not Available Not Available Not Available pravastat in 40 mg tablet TAKE 1 TABLET BY MOUTH EVERY DAY FOR 90 DAYS active Not Available Not Available No t Available alendrona te 70 mg tablet TAKE 1 TABLET BY MOUTH EVERY 7 DAYS ON AN EMPTY STOMACH DIRECTED active Not Available Not Available No t Available metoprolo l succinate ER 100 mg tablet,ex tended release 24 hr TAKE 1 TABLET BY ORAL ROUTE EVERY DAY active Not Available Not Available No t Available Nexium 40 mg capsule,d elayed release TAKE 1 CAPSULE BY ORAL ROUTE EVERY DAY 11/15 completed PRESCRIB ED ELSEWHER E Not Available Not Available Not Available ciproflox acin 500 mg tablet 05/23 completed Not Available Not Available Not Available minoxidil 2.5 mg tablet TAKE 1/2 TABLET BY MOUTH DAILY active Not Available Not Available No t Available tramadol 50 mg tablet TAKE 1 TABLET BY MOUTH EVERY 6 HOURS NEEDED active Not Available Not Available No t Available lidocaine -prilocai ne 2.5 %-2.5 % topical cream 05/18 completed Not Available Not Available Not Available ketorolac 10 mg tablet 07/13 completed Not Available Not Available Not Available oxycodone -acetamin ophen 5 mg-325 mg tablet PRN kidney stones 05/18 completed Not Available Not Available Not Available hydrocort isone 2.5 % topical cream with perineal applicato r APPLY SPARINGL Y TO AFFECTED AREA TWICE A DAY active Not Available Not Available No t Available Xylocaine Jelly 2 % mucosal APPLY TO AFFECTED AREA PRIOR TO ACTIVITY NEEDED. 11/15 completed Not Available Not Available Not Available pravastat in 10 mg tablet TAKE 1 TABLET BY ORAL ROUTE EVERY DAY active Not Available Not Available No t Available tamsulosi n 0.4 mg capsule 07/13 completed Not Available Not Available Not Available amitripty line 10 mg tablet PRN 05/18 completed Not Available Not Available Not Available baclofen 10 mg tablet TAKE 1 TABLET BY MOUTH 3 TIMES A DAY NEEDED FOR MUSCLE SPASM 08/11 completed Not Available Not Available Not Available cephalexi n 500 mg capsule TAKE 1 CAPSULE BY MOUTH TWICE A DAY 10/11 completed Not Available Not Available Not Available neomycin- polymyxin -dexameth 3.5 mg/mL-10, 000 unit/mL-0 .1% eye drops INSTILL 1 DROP 4 TIMES A DAY INTO RIGHT EYE 08/11 completed Not Available Not Available Not Available prednison e 50 mg tablet 05/05 completed Not Available Not Available Not Available fluoromet holone 0.1 % eye drops,[facility] 05/23 completed Not Available Not Available Not Available gabapenti n 100 mg capsule TAKE 1 TO 3 CAPSULES BY MOUTH AT BEDTIME 08/11 completed Not Available Not Available Not Available ergocalci ferol (vitamin D2) 1,250 mcg (50,000 unit) capsule 05/05 completed Not Available Not Available Not Available levofloxa tiffany 500 mg tablet 05/23 completed Not Available Not Available Not Available estradiol 0.01% (0.1 mg/gram) vaginal cream INSERT 1 GRAM WITH APPLICAT OR TWICE A WEEK NEEDED FOR ATROPHY active Not Available Not Available No t Available ondansetr on 4 mg disintegr ating tablet 07/13 completed Not Available Not Available Not Available fluticaso ne propionat e 50 mcg/actua tion nasal spray,[facility] 07/13 completed Not Available Not Available Not Available dicyclomi ne 10 mg capsule TAKE 1 CAPSULE BY MOUTH THREE TIMES A DAY NEEDED 10/11 completed Not Available Not Available Not Available mometason e 0.1 % topical cream 05/23 completed Not Available Not Available Not Available oxycodone 5 mg tablet 05/18 completed Not Available Not Available Not Available Lexapro 20 mg tablet TAKE 1 TABLET BY ORAL ROUTE EVERY DAY 11/15 completed PRESCRIB ED ELSEWHER E Not Available Not Available Not Available Restasis 0.05 % eye drops in a dropperet te INSTILL 1 DROP INTO BOTH EYES TWICE A DAY active Not Available Not Available No t Available bupropion HCl XL 150 mg 24 hr tablet, extended release 05/18 completed Not Available Not Available Not Available escitalop clinton 5 mg tablet active Not Available Not Available Not Available nitrofura ntoin monohydra te/macroc rystals 100 mg capsule TAKE 1 CAPSULE BY MOUTH EVERY 12 HOURS WITH FOOD 08/11 completed Not Available Not Available Not Available calcium active Not Available Not Avail able Not Available Vitamin D3 active Not Available Not Available Not Available Alphagan P 0.1 % eye drops 05/23 completed Not Available Not Available Not Available tretinoin 0.05 % topical gel active Not Available Not Available Not Available Savella 12.5 mg tablet 05/23 completed Not Available Not Available Not Available Vagifem 10 mcg vaginal tablet Insert 1 tablet vaginall y twice a week active Not Available Not Available No t Available Xifaxan 550 mg tablet 07/13 completed Not Available Not Available Not Available RectiCare 5 % topical cream APPLY TO AFFECTED AREA NEEDED DIRECTED active Not Available Not Available No t Available Fluvirin (PF) 45 mcg (15 mcg x 3)/0.5 mL intramusc ular syringe 05/05 completed Not Available Not Available Not Available Fluvirin 45 mcg (15 mcg x 3)/0.5 mL intramusc ular suspensio n 05/18 completed Not Available Not Available Not Available Emgality Pen 120 mg/mL subcutane ous pen injector INJECT THE CONTENTS OF 2 PENS SUBCUTAN EOUSLY ONCE FOR 30 DAYS active Not Available Not Available No t Available Imvexxy Maintenan ce Pack 4 mcg vaginal insert Insert 1 vaginal insert twice a week by vaginal route. 07/13 completed Not Available Not Available Not Available Aklief 0.005 % topical cream Apply ONCE A DAY active Not Available Not Available No t Available Zerviate 0.24 % eye drops in a dropperet te PLACE 1 DROP IN EACH EYE EVERY 12 HOURS 10/11 completed Not Available Not Available Not Available Eysuvis 0.25 % eye drops,hira pension INSTILL 1 DROP IN BOTH EYES 4 TIMES DAILY FOR 2 WEEKS THEN 1 DROP TWICE DAILY FOR 4 WEEKS 10/11 completed Not Available Not Available Not Available COVID-19 At-Home Test kit FOLLOW INSTRUCT IONS INCLUDED WITH THE PACKAGE. active Not Available Not Available No t Available Vitals Date Recorded Body weight Body mass index (BMI) Body height Systolic blood pressure Diastolic blood pressure Provider Name and Address Organization Details Last Updated DateTime 05/23/2019 43213.19 g 23.6 kg/m2 159.39 cm 120 mm[Hg] 80 mm[Hg] JERMAINE SAEED MD [address] [place] [address], [address] Floor, [place], [address] [place] [facility] 9 10:59:52 Date Recorded Body height Body mass index (BMI) Body weight Systolic blood pressure Diastolic blood pressure Provider Name and Address Organization Details Last Updated DateTime 06/18/2020 159.39 cm 22.5 kg/m2 46841.64 g 114 mm[Hg] 74 mm[Hg] Chica Crow [facility] 0 10:24:54 Date Recorded Body height Body mass index (BMI) Body weight Systolic blood pressure Diastolic blood pressure Provider Name and Address Organization Details Last Updated DateTime 07/13/2021 158.75 cm 23.4 kg/m2 38297.01 g 120 mm[Hg] 82 mm[Hg] Antoinette Aly [facility] 1 12:07:00 Date Recorded Body weight Body mass index (BMI) Body height Systolic blood pressure Diastolic blood pressure Provider Name and Address Organization Details Last Updated DateTime 08/11/2022 69620.75 g 24.8 kg/m2 158.75 cm 120 mm[Hg] 76 mm[Hg] Chica Crow [facility] 2 13:33:04 Date Recorded Body height Body mass index (BMI) Body weight Systolic blood pressure Diastolic blood pressure Provider Name and Address Organization Details Last Updated DateTime 10/14/2023 160.02 cm 22 kg/m2 57678.45 g 116 mm[Hg] 74 mm[Hg] Chica Crow [facility] 4 12:03:44 Social History Question Answer Notes LastModified by Organizat ion Details LastModified Time Tobacco Smoking Status Former Smoker 15- Rosario song [facility] 04/07/2016 14:52:07 What Is Your Level Of Alcohol Consumption? Occasional Information not available 04/07/2016 Is Blood Transfusion Acceptable In An Emergency? Yes Information not available 10/14/2023 Education 4 Year College Informati on not available 10/14/2023 What Is The Highest Grade Or Level Of School You Have Completed Or The Highest Degree You Have Received? 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 No [email or web address] Information not available 05/18/2018 Does Your Partner Physically Hurt You Or Threaten To Hurt You? No Information not available 05/05/2017 Has Your Partner Forced You To Have Sex Or Perform Sex Acts When You Did Not Want To? No Information not available 05/05/2017 Does Your Partner Insult, Scream At Or Talk Down To You? No Information not available 05/05/2017 Does Your Partner Control You Or Any Part Of Your Life? No Information not available 05/05/2017 Are You Afraid Of Your Partner? No Screened 05/18/18 Screened 05/23/19 Screened Negative 06/18/20 Screened 08/11/22 Screened 10/14/23. Information not available 05/05/2017 Tobacco Type Cigarettes Information not available 06/18/2020 Drug Use? No Information n ot available 04/12/2016 Do You Feel Safe At Home? Yes Information not available 04/07/2016 What Was The Date Of Your Most Recent Tobacco Screening? 10/14/2023 Information not available 10/14/2023 How Many Children Do You Have? 0 Information not available 08/11/2022 How Much Tobacco Do You Smoke? No Information not available 04/12/2016 General Stress Level High Information not available 10/14/2023 Do You Feel Stressed (tense, Restless, Nervous, Or Anxious, Or Unable To Sleep At Night)? [id number] Information not available 07/13/2021 How Many Years Have You Smoked Tobacco? 5 [email or web address] Information not available 05/18/2018 Have You Recently Traveled Abroad? No Information not available 10/14/2023 Do You Have Symptoms Associated With Zika Virus (fever, Rash, Joint Pain, Or Conjunctivitis) ? No Information not available 10/14/2023 Have You Recently (within The Last 12 Weeks, Or During A Current ) Traveled To Or Lived In A Zika-affected Area? No Information not available 10/14/2023 Sex: Female Functional Status Question Answer Note LastModified by Organizat ion Details LastModified Time What is your exercise level? Occasional [email or web address] Information not available 05/18/2018 Mental Status Question Answer Note LastModified by Organizat ion Details LastModified Time Do you have difficulty concentrating, remembering or making decisions? Yes All 3 Information no t available 10/14/2023 Family History Relationship Description Onset Age of this Age Resolved Age Notes LastModified by Organization Details LastModified Time Father Cerebrovascu lar accident 87 Not available 12:27:16 Father Dementia of frontal lobe type Not available 09/29 11:10:41 Father Hypertensive disorder Not available 03/29 13:53:21 Father Dementia Not availa ble 10/14/2023 11:10:41 Father Malignant melanoma pt. added direct ly (06/13) [email or web address] Not available 06/13/2020 14:16:45 Mother Malignant neoplasm of brain 82 Cause of [email or web address] Not available 10/14/2023 11:10:41 Mother Hypertensive disorder Not available 03/29 13:53:21 Mother Malignant neoplastic disease pt. added direct ly (06/13) [email or web address] Not available 06/13/2020 14:18:12 Maternal Grandmother Malignant neoplasm of liver Not available 09/29 11:10:41 Paternal Grandmother Alzheimer's disease Not available 09/29 11:10:41 Paternal Grandfather Removal of heart-lung block from donor Not available 09/29 11:10:41 Maternal Aunt Malignant neoplastic disease Cause of Not available 04/12/2016 13:53:21 Maternal Uncle Malignant tumor of lung Not available 03/29 13:53:21 Paternal Uncle Malignant tumor of lung Not available 03/29 13:53:21 Paternal Uncle Myocardial infarction Not available 11:10:41 Brother Hypertensive disorder Not available 03/29 13:53:21 Sister Hypertensive disorder Not available 03/29 13:53:21 Notes:no hx of ovarian, colo n or breast cancer Medical History Condition Response Other Y *No Diseases or Conditions N Blood clots N Breast Cancer N Benign breast disease N Colon cancer N Lung Disease N Depression Y Defects or Inherited Disease N Anesthesia Complications N Neurological Disorder Y Headaches/Migraines N Have you ever been on isolation N Anxiety Disorder Y Arthritis Y HSV N Infertility N Interstitial Cystitis N Acid Reflux (GERD) Y Cancer N Stroke N Endometriosis N Fibromyalgia N Spina Bifida N HIV N Heart Problems N Sexual Dysfunction N Autoimmune disorder N Kidney or Bladder Problems Y Thyroid Problems N GI Problems Y Eating Disorder N Anemia N Multiple Sclerosis N Psychiatric Illness N Ovarian Cancer N Diabetes N Blood Transfusions N Bladder disease N History of MRSA N Abnormal Uterine Bleeding N Hyperlipidemia N BrCa positive N Diverticulitis N Abuse/Domestic Violence N Asthma N Hepatitis N Hypertension Y Osteoporosis Y Thrombophilias N Gynecological History Statement/Question Response Benign Breast Disease N Date of Last Mammogram 12/28/2023 Date of LMP Breast Biopsy Yes IPV Screen Done 10/14/2023 [facility] Biopsy N Post Menopausal Bleeding N STIs/STDs Y PID N Cervical Cancer N History of Endometrial Biopsy? N BrCa gene tested? N If Post Menopausal, Age at Menopause ear ly 40s ? Ovarian Cancer N Date of Last Colonoscopy Breast Cancer N Date of last DEXA 12/27/2023 Bladder Problems N Abnormal Uterine Bleeding N Last HPV Result Negative Abnormal Pap N BrCa Positive N Infertility N Breast Ultrasound Yes Leep N HPV Vaccine N Endometriosis N Age at Menarche 11 Current Control Method None Age at First Child none Fibroids N Uterine Cancer N Current Control Method Menopause Sexually Active? N Sexual Problems? Y Date of Last Pap Smear 10/14/2023 Hormone Replacement Therapy N Obstetrics History GPAL:G 1 P 0 0 1 0 Type Value Multiple Births 0 Full Term 0 Induced 1 Spontaneous 0 Premature 0 Living 0 Ectopics 0 Total 1 Immunizations Vaccine Type Date Status Note Provider Isacc cobian and Address Organization Details Recorded Time COVID-19, mRNA, LNP-S, PF, 30 mcg/0.3 mL dose 11/05/2020 completed YANIQUE Jackson - [facility] 07/13/2021 12:02:27 COVID-19, mRNA, LNP-S, PF, 30 mcg/0.3 mL dose 12/01/[address] [place] - [facility] 07/13/2021 12:02:42 Past Encounters Encounter ID Performer Location Encounter Start Date Encounter Closed Date Diagnosis/Indication Diagnosis SNOMED-CT Code Diagnosis ICD10 Code Diagnosis Note [id number] [address] [place] [address] 12/03/2014 00:00:[id number] [facility] [address] [address] 04/07/2016 14:38:20 04/07/2016 15:16:52 Abnormal nipple 832610932 N64.9 [id number] [facility] [address] [facility],[address] [address] 04/12/2016 13:32:44 04/12/2016 14:39:42 Gynecologic examination [id number] Z01.419 Osteopenia [id number] M85 .80 [id number] JERMAINE SAEED MD [facility] [address] [address] 05/05/2017 08:29:27 05/05/2017 09:23:50 Gynecologic examination [id number] Z01.411 Z01.419 Osteopenia [id number] M85 .80 [id number] JERMAINE SAEED MD [facility] [address] [facility] [address] [place] [address] 05/18/2018 10:19:59 05/18/2018 11:41:20 Gynecologic examination [id number] Z01.411 Z01.419 Screening mammography 24 718988 Z12.31 [id number] JERMAINE SAEED MD [facility] [address] [address] 05/23/2019 10:06:26 05/23/2019 11:14:43 Gynecologic examination [id number] Z01.419 Screening mammography 24 549347 Z12.31 Depression screening 171 227420 Z13.31 Osteopenia [id number] M85 .80 [id number] JERMAINE SAEED MD [facility] 20 [facility],[address] [address] 06/18/2020 10:17:18 06/18/2020 11:03:28 Gynecologic examination [id number] Z01.419 routine well woman visit. 55 y.o G0 PM female still friends with ex bf. not SA. history notable for: pandemic year. aways in pain. some depression due to not feeling well. working may have SIBO. bowel issues, muscle aches. with pcp and dietitian. changing diet, testing. may have SIBO. exercise, hearth healthy diet, weight control discussed dietary calcium, Vit D3, 2000 Iu daily and weight bearing exercise recommende d pap + HPV done today. q 3 year screening with HPV recommende d. no IPV concerns emotionall y well. Screening mammography 24 032642 Z12.31 SBe reviewed. nl CBE needs screening breast u/s. mammo done 05/18 Depression screening 171 834111 Z13.31 screened positive. declines interventi on. had a therapist. now just working on getting healthier. Atrophic vaginitis 00355 000 N95.2 Dyspareunia 98196623 N94 .10 Osteopenia 688591726 M85 .[address] Parrish. takes weekly and is tolerating it for moderate osteopenia . on it for about 2 months. f/u with her on Vit D drops and dietary calcium. [id number] JERMAINE SAEED MD [facility] [address] [address] 07/13/2021 11:51:40 07/13/2021 12:45:33 Gynecologic examination [id number] Z01.411 Z01.419 routine well woman visit. 56 y.o G0 PM female still friends with ex bf. not SA. history notable for: pandemic year. aways in pain. some depression due to not feeling well. working may have SIBO. bowel issues, muscle aches. with pcp and dietitian. changing diet, testing. may have SIBO. exercise, hearth healthy diet, weight control discussed dietary calcium, Vit D3, 2000 Iu daily and weight bearing exercise recommende d pap + HPV done today. q 3 year screening with HPV recommende d. no IPV concerns emotionall y tired. works at [employer]. tomorrow is 30 anniversar y. Screening mammography 24 514856 Z12.31 SBe reviewed. nl CBE needs screening breast u/s. mammo done 05/18 Osteopenia 352084505 M85 .[address] Parrish. takes weekly and is tolerating it for moderate osteopenia . on it for about 2 months. f/u with her on Vit D drops and dietary calcium. having repeat BD coming up. Chronic pain syndrome 37 1648123 G89.4 pt has chronic pain-- in her neck, spine, head aches, tingling/p ain and numbness in her legs. h/o pelvic pain and pelvic varices but now menopausal and less blood flow there. Discussed option of pain modulation with gabapentin or antidepres alyx like pristique. pt feels that pcp may have 'given up' on making her feel better. Depression screening 171 797499 Z13.31 screened positive. declines interventi on. had a therapist. now just working on getting healthier. pt has long distance relationsh ip . never more than that. her fiance years ago and pt never got over that. she has work stress- at [employer] for 30 years. feels stuck until age 64. [id number] JERMAINE SAEED MD H1 [address] [facility] [place] [address] 08/11/2022 13:21:58 08/11/2022 14:09:37 Gynecologic examination [id number] Z01.411 Z01.419 routine well woman visit. 57 y.o G0 PM female still friends with ex bf. not SA. close . he wants to have sex. she hasn't worked with estrogen and dilators to make it happen. health issues. tired. history notable for: pandemic year. aways in pain. some depression due to not feeling well. working with therapist. no meds. may have SIBO. bowel issues, muscle aches. with pcp and dietitian. changing diet, testing. exercise, hearth healthy diet, weight control discussed dietary calcium, Vit D3, 2000 Iu daily and weight bearing exercise recommende d pap + HPV done today. q 3 year screening with HPV recommende d. no IPV concerns emotionall y tired. works at [employer]. tomorrow is 30th anniversar y. Screening mammography 24 617385 Z12.31 SBe reviewed. nl CBE needs screening breast u/s. mammo done 05/18 Atrophic vaginitis 94667 000 N95.2 unable to have sex due to pain. wants to try the estrogen cream again and dilators. reviewed fatoumata benitez. has a great BF. they are close but no sex. he would like to have it. Depression screening 171 Z13.31 screened positive. declines interventi on. had a therapist. now just working on getting healthier. pt has long distance relationsh ip . never more than that. her fiance years ago and pt never got over that. she has work stress- at [employer] for 30 years. feels stuck until age 64. [id number] JERMAINE SAEED MD H[address] [place] [address] 10/14/2023 11:09:45 10/14/2023 12:26:32 Gynecologic examination [id number] Z01.411 Z01.419 routine well woman visit. 58 y.o G0 PM female still friends with ex bf. not SA. close . he wants to have sex. she hasn't worked with estrogen and dilators to make it happen. health issues. tired. history notable for: pandemic year. aways in pain. some depression due to not feeling well. working with therapist. no meds. may have SIBO. bowel issues, muscle aches. with pcp and dietitian. changing diet, testing. exercise, hearth healthy diet, weight control discussed dietary calcium, Vit D3, 2000 Iu daily and weight bearing exercise recommende d pap + HPV done today. q 3 year screening with HPV recommende d. no IPV concerns emotionall y tired. works at [employer]. tomorrow is 30th anniversar y. was offered transfer to [place] and if she declines-- she will end job in 2 years . pt said no to transfer but is on the fence about jose [facility]. Screening mammography 24 890592 Z12.31 SBe reviewed. nl CBE needs screening breast u/s. mammo done 05/18 Atrophic vaginitis 44554 000 N95.2 unable to have sex due to pain. wants to try the estrogen cream again and dilators. reviewed fatoumata benitez. has a great BF. they are close but no sex. he would like to have it. Depression screening 171 Z13.31 screened positive. declines interventi on. had a therapist. now just working on getting healthier. pt has long distance relationsh ip . never more than that. her fiance years ago and pt never got over that. she has work stress- at [employer] for 30 years. feels stuck until age 64. Health Concerns Section Related Observation LastModified by Organization Detai ls LastModified Time None Recorded Concern Status LastModified by Organization Details LastModified Time None Recorded Advance Directives Directive None Recorded Payers Encounter Date Sequence Insurance Name Policy Number Policy Fierro Covered Member ID Fierro Member ID Guarantor Name 05/23/2019 1 [employer] [id number] Silvia Carr [id number] Silvia Carr 06/18/2020 1 [employer] [id number] Silvia Carr [id number] Silvia Carr 07/13/2021 1 [employer] [id number] Silvia Carr [id number] Silvia Carr 08/11/2022 1 [employer] [id number] Silvia Carr [id number] Silvia Carr 10/14/2023 1 [employer] [id number] Silvia Carr [id number] Silvia Carr Notes Date Note Type Note Provider Name and Address Organization Details Recorded Time 05/23/2019 text/html [facility] Annual GYNReported bypatient.Menstrua l cycle:postmenopaus al Urinary symptoms:No hematuria;Urge incontinence;Incre ased urinary frequency Vulva:No genital lesion Vagina:Normal vaginal discharge Breast:No breast pain; No breast lump; No nipple discharge Sexual activity:sexually active yes; No sexual complaints; Normal libido;Pain during intercourse Menopausal symptoms:Hot flashes;Inadequacy of lubrication of vaginal mucosa;Insomnia due to night sweats Psychological symptoms:No depression; No anxiety; No PMDD Preventive measures:Encourage self breast examination; Encourage regular exercise; Encourage no tobacco use; Encourage regular mammograms starting age 40; Followed with Q3 year pap smear and high risk HPV typing; Up to date on colonoscopy screening; DEXA needs to schedule 54 yo female presents for routine annual exam with multiple concerns, medical internet architect declined-sab UTI's x 4. saw urology and was told to take antibiotic x 6 months. she has vaginal dryness and pain with sex. unable to have penetration. partner x 24 years but not SA. live separately because he is still . JERMAINE SAEED MD [address] [facility], [address]rd Floor, [place], [address], [facility] 05/23/2019 22:05:33 06/18/2020 text/html [facility] Annual GYNReported bypatient.Menstrua l cycle:postmenopaus al Urinary symptoms:No hematuria; No incontinence Vagina:Normal vaginal discharge;Vaginal itching Breast:No breast pain; No breast lump; No nipple discharge Current Contraception:Marci h control not practiced; Not sexually active Sexual activity:No sexual complaints; Normal libido;Pain during intercourse; was doing imvexxy. Menopausal symptoms:No menopausal symptoms; Normal vaginal lubrication Psychological symptoms:Depressio n Preventive measures:Encourage self breast examination; Encourage regular exercise; Followed with Q3 year pap smear and high risk HPV typing; Mammogram performed within the past year; Up to date on colonoscopy screening; DEXA up to dateNotes:needs screening breast u/s. routine well woman exam for 55 y.o single G0 PM female. had some trouble sleeping. would wake up at 1 and stay awake until 4 am. tested for narcolepsy and thought it was possible. it was read as borderline. not doing much right now. refused ritalin. depression sx is from pain - back issues, working closely with [employer] L[employer]. [employer]. 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 working on eating with health issues. starting antibiotic for SIBO. taking vitamins and supplements and pcp is working well. still friends with ex. not really SA due to pain. 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 jose carlos SAEED MD [address] [facility], [address], [place], [address], [facility] 06/18/2020 10:54:39 07/13/2021 text/html [facility] Annual GYNReported bypatient.History: declined internet architect. pt c/o constant LLQ pain. Menstrual cycle:postmenopaus al Urinary symptoms:No hematuria; No incontinence;Incre ased urinary frequency;Nocturia ; drinking more fluids. so she goes more but does have urgency. Vulva:No genital lesion Vagina:Foul-smelli ng; ? normal. Breast:No breast pain; No breast lump; No nipple discharge Sexual activity:sexually active no;Sexual complaints;Pain during intercourse;Decrea sed libido; has dilators. Menopausal symptoms:Hot flashes;Inadequacy of lubrication of vaginal mucosa Psychological symptoms:No depression; No anxiety Preventive measures:Encourage self breast examination; Encourage regular exercise; Encourage no tobacco use; Encourage regular mammograms starting age 40; Needs to schedule mammogram; Up to date on colonoscopy screening; DEXA up to date had kidney stone that was stuck. had uteroscopy done to remove it. it was on the left side. now with pain on left side from ribs to pelvis. Had abdominal KUB and u/s . is seeing urology tomorrow. . pain is getting worse. noticed after uretorscopy. had pain from kidney stone June to October before removal. JERMAINE SAEED MD [address] [place] [address], [address] Floor, [place], [address], [place] [facility] 07/13/2021 15:31:43 08/11/2022 text/html [facility] Annual GYNReported bypatient.Menstrua l cycle:postmenopaus al Urinary symptoms:No hematuria; No incontinence Vulva:No genital lesion Vagina:Normal vaginal discharge;Vaginal burning;Vaginal itching Breast:No breast lump; No nipple discharge;Breast Pain Bilateral(tenderne ss) Current Contraception:Sati sfied with current contraception; Monogamous relationship; control not practiced; Not sexually active Sexual activity:sexually active no; No sexual complaints;Pain during intercourse;Decrea sed libido Menopausal symptoms:Hot flashes;Inadequacy of lubrication of vaginal mucosa;Insomnia due to night sweats Psychological symptoms:No depression; No anxiety; No PMDD Preventive measures:Encourage self breast examination; Followed with Q3 year pap smear and high risk HPV typing; Mammogram performed within the past year; Up to date on colonoscopy screening; DEXA up to date Pt would like to discuss calcium and vitamin d, how much she should be taking. 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 jysome anxiety. upset about her health issues.low back and neck issues . numbness and heaviness. has bone spurs, legs give out occ.just had a full MRI of neck to back , awaiting results.ruled out MS, Lyme. ? autoimmune. ? fibromyalgia. have tried meds and no better.chronic kidney stones. just saw Dr. Parrish. she is checking 24 h urine for calcium . see how calcium is absorbing.still seeing BF. good friends -- platonic relationship. he wants to have sex. they may try to rekindle.close to her sister. JERMAINE SAEED MD [address] [facility], [address] [place], [address], [facility] 08/12/2022 21:40:56 10/14/2023 text/html [facility] Annual GYNReported bypatient.History: Pt would like a dexa ordered. 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 jy Menstrual cycle:Normal menses Urinary symptoms:Hematuria ;Incontinence;Burn ing sensation during urination;Increase d urinary frequency;Nocturia Vulva:No genital lesion Vagina:Normal vaginal discharge Breast:No breast pain; No breast lump; No nipple discharge Current Contraception:Sati sfied with current contraception; Monogamous relationship; control not practiced Sexual activity:sexually active no ; No sexual complaints;Pain during intercourse;Decrea sed libido Menopausal symptoms:Hot flashes;Inadequacy of lubrication of vaginal mucosa;Insomnia due to night sweats Psychological symptoms:No depression; No anxiety; No PMDD Preventive measures:Encourage self breast examination; Encourage regular exercise; Followed with pap smear and high risk HPV typing every 3 years; Encourage regular mammograms starting age 40; Needs to schedule mammogram; Needs to schedule colonoscopy; DEXA needs to schedule neck and low back pain and numbness and tingling from her back and neck discs.not sleeping alot.seeing pcp this afternoon.weight is down. not actively trying to lose weight. was swimming. JERMAINE SAEED MD [address] [facility], [address], [place], [address], [facility] 10/16/2023 12:37:51 OBGyn Episode No OBEpisode recorded.
--- OUTSIDE RECORDS SUMMARY | 2024-09-28 13:15 | XMS_ITS | Data Portability ---
Author Organization [facility] PA[facility] Address [address] [facility] [address] [place] [address] Care Team Providers Care Power Reactor Operator Name Role Phone MIMI CROOK Referring Provider GLENNY CASH Primary Care Provider Assessment Encounter Date Assessment Date Assessment LastModified by Organization Details LastModified Time 03/29/2013 03/29/2013 Silvia Carr is a 48 year old woman with complaints of generalized body pain. Her greatest pain is presently in her neck associated with headaches. She also at times has pain radiating into both arms. On exam, Trigger points are elicited bilaterally in trapezius and rhomboid muscles and palpations of the trigger points reproduces her pain. 16 out of 18 tender points for fibromyalgia are positive. MRI cervical spine shows multilevel degenerative disc disease and spondylosis. We discussed various treatment options 1. Trial of a TENS unit - She was given an educational video of the same. She will call us back if she wants a home trial. 2. Trial of voltaren gel - I have given her a sample to trial and if beneficial, I will e-prescribe the same for her. 3. I also recommend a rheumatology consult . [email or web address] Not available 03/29/2013 16:34:47 07/28/2016 07/28/2016 Silvia Carr is a 48 year old woman with complaints of generalized body pain. Her greatest pain is presently in her neck associated with headaches. She also at times has pain radiating into both arms with numbness and tingling. On exam, Trigger points are elicited bilaterally in trapezius and rhomboid muscles and palpations of the trigger points reproduces her pain. MRI Cervical spine which shows stable appearing borderline spinal and moderate bilateral foraminal stenosis, worse on the right, at C5-C6. Stable appearing moderate bilateral foraminal stenosis, worse on the right at C6-C7. Stable appearing mild bilateral foraminal stenosis, worse on the left, at C3-C4. Stable appearing mild right foraminal stenosis at C4-C5. We discussed various treatment options 1. Trial of a trigger point injections under ultrasound guidance.The risks and benefits were reviewed in detail. She will call for an appointment. She might benefit from a trial of cervical epidural steroid injections under fluoroscopic guidance. [email or web address] Not available 08/09/2016 12:05:07 Plan of Treatment Reminders Order Date Submit Date Provider Last Modified By Organization Details Last Modified Time Details Appointments None record ed. Lab None record ed. Referral None record ed. Procedures None record ed. Surgeries None record ed. Imaging None record ed. Medication Orders None record ed. Patient TargetsNo targets recorded. Patient Instructions Encounter Date Encounter Id Patient Instructions Last Modified By Organization Details Last Modified Time 03/29/2013 [id number] She was advised against bed rest lasting longer than four days and to continue activities as tolerated. [email or web address] Not available 03/29/2013 15:43:25 07/28/2016 [id number] She was advised to continue with activities as tolerated. [email or web address] Not available 08/09/2016 12:05:24 Reason for Referral None Reported. Problems Name Problem SNOMED Code Status Onset Date Resolution Date Notes Provider Name and Address Organization Details Recorded Time Degeneration of cervical intervertebral disc 57140701 Active Not Available [facility] 3 03:02:02 Muscle pain 17764839 Active Not Available [facility] 3 03:02:02 Neck pain 80805022 Active Not Available [facility] 3 03:02:02 Problem Notes None recorded. Procedures Surgical History Date Name Laterality Status Provider Name and Address Organization Details Recorded Time Other completed [facility] 03/29/2013 08:36:20 Imaging Results None recorded. Procedure Notes None recorded. Medical Equipment None Reported. Allergies Allergen ID Allergen Name Allergen Category Reaction Reaction Severity Criticality Documentation Date Start Date Code Code System Note Provider Name and Address Organization Details Recorded Time 6081 Iodinated contrast media (substanc e) medicatio n anaphylax is Not available Not available 03/29/2013 19136 2004 SNOMED [facility] 3 08:31:27 6082 erythromy tiffany medicatio n nausea vomiting Not available Not available Not available 03/29/2013 4053 RxNorm [facility] 3 08:31:27 Medications Name Sig Start Date Stop Date Status Note LastModified by Organization Details LastModified Time Carafate 100 mg/mL oral suspension active Not Available Not Available N ot Available Toprol XL 100 mg tablet,extende d release active Not Available Not Available No t Available pravastatin 40 mg tablet active Not Available Not Available No t Available Nexium 40 mg capsule,delaye d release 07/28 completed Not Available Not Available Not Available lidocaine HCl 2 % mucosal jelly 07/28 completed Not Available Not Available Not Available ciprofloxacin 500 mg tablet 07/28 completed Not Available Not Available Not Available lidocaine-pril ocaine 2.5 %-2.5 % topical cream 07/28 completed Not Available Not Available Not Available oxycodone-acet aminophen 5 mg-325 mg tablet 07/28 completed Not Available Not Available Not Available amitriptyline 10 mg tablet 07/28 completed Not Available Not Available Not Available ergocalciferol (vitamin D2) 1,250 mcg (50,000 unit) capsule active Not Available Not Available Not Available escitalopram 20 mg tablet 07/28 completed Not Available Not Available Not Available escitalopram 5 mg tablet 07/28 completed Not Available Not Available Not Available nitrofurantoin monohydrate/ma crocrystals 100 mg capsule 07/28 completed Not Available Not Available Not Available Vitamin D3 daily 07/28 completed Not Available Not Available Not Available Vagifem 10 mcg vaginal tablet 07/28 completed Not Available Not Available Not Available Fluvirin (PF) 45 mcg (15 mcg x 3)/0.5 mL intramuscular syringe ADM 0.5ML IM UTD 07/28 completed Not Available Not Available Not Available Vitals Date Recorded Body height Body weight Body mass index (BMI) Heart rate Oxygen saturation Oxygen saturation in Arterial blood by Pulse oximetry Systolic blood pressure Diastolic blood pressure Provider Name and Address Organization Details Last Updated DateTime 3 160.02 cm 83305.0 081 g 23 kg/m2 61 /min 98 % 98 % 112 mm[Hg] 67 mm[Hg] [facility] 3 08:31:27 Date Recorded Heart rate Oxygen saturation Oxygen saturation in Arterial blood by Pulse oximetry Body height Body weight Body mass index (BMI) Systolic blood pressure Diastolic blood pressure Provider Name and Address Organization Details Last Updated DateTime 6 67 /min 97 % 97 % 160.02 cm 91993.0 5 g 22.1 kg/m2 121 mm[Hg] 75 mm[Hg] [facility] Re[facility] 6 13:23:09 Social History Question Answer Notes LastModified by Organizat ion Details LastModified Time Tobacco Smoking Status Former Smoker Quit x 30 years Not Available [employer] 06/13/2020 03:16:12 What Is Your Level Of Alcohol Consumption? Occasional [id number] Information not available 06/13/2020 Are You Currently Employed? Yes [employer] [id number] Information not available 06/13/2020 Which Illicit Or Recreational Drugs Have You Used? No [id number] Information not available 06/13/2020 Education 4 Year College [email or web address] Informatio n not available 03/29/2013 Live Alone Or With Others? Alone [email or web address] Information not available 03/29/2013 Marital Status Single [email or web address] Informatio n not available 03/29/2013 How Many Years Have You Smoked Tobacco? 5 [id number] Information not available 06/13/2020 Sex: Unknown Functional Status None recorded. Mental Status None recorded. Family History Relationship Description Onset Age of this Age Resolved Age Notes LastModified by Organization Details LastModified Time Mother Hypertensive disorder previo usly record ed as Hypert ension [email or web address] [id number] Not available 05/20/2013 03:02:00 Mother Problem osteop orosis (previ ously record ed as Other) [email or web address] [id number] Not available 05/20/2013 03:02:00 Mother Malignant neoplastic disease [email or web address] Not available 2015 13:33:46 Father Dementia [email or web address] [id number] Not available 05/20/2013 03:02:00 Father Hypertensive disorder previo usly record ed as Hypert ension [email or web address] [id number] Not available 05/20/2013 03:02:00 Father Cerebrovascu lar accident previo usly record ed as Stroke [email or web address] [id number] Not available 05/20/2013 03:02:00 Medical History Condition Response Anxiety Disorder Y Headache Y Arthritis Y Kidney Stones Y High Cholesterol Y GERD/Reflux Y Fibromyalgia Y Irritable Bowel Syndrome Y Hypertension Y Depression Y Gynecological HistoryNo gynecological history recorded. Obstetrics History GPAL:G 0 P 0 0 0 0 Past Encounters Encounter ID Performer Location Encounter Start Date Encounter Closed Date Diagnosis/Indication Diagnosis SNOMED-CT Code Diagnosis ICD10 Code Diagnosis Note [id number] PAIN OFFICE [address] [facility],[address] [place] [address] 03/29/2013 08:08:16 03/29/2013 15:43:52 [id number] Oly Pina MD PAIN OFFICE [address] [facility],[address] [place] [address] 07/28/2016 13:08:55 08/09/2016 14:12:10 Degeneration of cervical intervertebral disc 43799434 M50.30 Cervical radiculopathy 42216174 M54.12 Muscle pain 63229897 M79 .1 Health Concerns Section Related Observation LastModified by Organization Detai ls LastModified Time None Recorded Concern Status LastModified by Organization Details LastModified Time None Recorded Advance Directives Directive None Recorded Payers Encounter Date Sequence Insurance Name Policy Number Policy Fierro Covered Member ID Fierro Member ID Guarantor Name 03/29/2013 1 [place] [id number] Silvia Carr [id number] Silvia Bruno 07/28/2016 1 [place] [id number] Silvia E Bruno [id number] Silvia Nayalazaro Notes Date Note Type Note Provider Name and Address Organization Details Recorded Time 03/29/2013 text/html She has trialed physical therapy in the past and feels no improvement in her symptoms. She is planning to attend [facility] in [place]. She is receiving chiropractic treatment which helps. She has had massages done which give short term pain benefit. She has seen Dr. Avalos , a neurologist and states he is referring her to see a pitting machine operator for fibromyalgia. She feels she has fibromyalgia. Oly Pina MD [address] , [address], [place], [address], [facility] 03/29/2013 16:34:52 07/28/2016 text/html She is here for a follow up. She is complaining of neck pain radiating into both upper extremities with numbness and tingling in both upper extremities. She states she has been having an exacerbation of her pain for the past few months. She has headaches. She has also low back pain radiating into both lower extremities with heaviness in her legs. She has had a newer MRI Cervical spine which shows stable appearing borderline spinal and moderate bilateral foraminal stenosis, worse on the right, at C5-C6. Stable appearing moderate bilateral foraminal stenosis, worse on the right at C6-C7. Stable appearing mild bilateral foraminal stenosis, worse on the left, at C3-C4. Stable appearing mild right foraminal stenosis at C4-C5. She has no history of bladder or bowel incontinence. Oly Pina MD [address] [facility] , [address], [place], [address], [facility] 08/10/2016 11:37:48 OBGyn Episode No OBEpisode recorded.
--- OUTSIDE RECORDS SUMMARY | 2024-09-28 13:15 | XMS_ITS | Clinical Summary ---
Author Organization [facility] [place] [address] Care Team Providers Care Solar Sales Name Role Phone Shaheen Maharaj MD Primary Care Provider [phone] Social History Tobacco Use Types Packs/Day Years Used Date Smoking Tobacco: Never Smokeless Tobacco: Never Sex and Gender Information Value Date Recorded Sex Assigned at Not on file Gender Identity Not on file Sexual Orientation Not on file Obstetrics History Plan of Treatment Health Maintenance Due Date Last Done Comments Breast Cancer Screening 1964 DTaP,Tdap,and Td Vaccines (1 - Tdap) 1983 Cervical Cancer Screening: P ap Smear 1985 Zoster Vaccines (1 of 2) 2014 Colorectal Cancer Screening: Colonoscopy 07/28/2022 Depression Screening 07/28/2022 HIV Screening 07/28/2022 Hepatitis C Screening 07/28/2022 Social Influencers of Health Screening 07/28/2022 COVID-19 Vaccine ( - 2023-2 5 season) 2024 Influenza Vaccine (#1) 2024 RSV Immunization Patients 60 + Years Old (1 - 1-dose 75+ series) 2039 HIB Vaccines Aged Out No longer eligi ble based on patient's age to complete this topic HPV Vaccines Aged Out No longer eligi ble based on patient's age to complete this topic Hepatitis A Vaccines Aged Out No long er eligible based on patient's age to complete this topic Hepatitis B Vaccines Aged Out No long er eligible based on patient's age to complete this topic IPV Vaccines Aged Out No longer eligi ble based on patient's age to complete this topic MMR Vaccines Aged Out No longer eligi ble based on patient's age to complete this topic Meningococcal ACWY Vaccine Aged Out N o longer eligible based on patient's age to complete this topic Pneumococcal Vaccine: Pediat rics (0 to 5 Years) and At-Risk Patients (6 to 64 Years) Aged Out No longer eligible b ased on patient's age to complete this topic RSV Immunization Patients Un salazar 20 months Aged Out No longer eligible b ased on patient's age to complete this topic Varicella Vaccines Aged Out No longer eligible based on patient's age to complete this topic Care Teams Solar Sales Relationship Specialty Start Date End Date Shaheen Maharaj MD PCP - General Internal Medicine 12/04/18
--- OUTSIDE RECORDS SUMMARY | 2024-09-28 13:15 | XMS_ITS | Clinical Summary ---
Author Organization [facility] Address [address] [place] [address] Care Team Providers Care Grants Officer Name Role Phone Shaheen Maharaj Primary Care Provider [phone] Allergies Active Allergy Reactions Criticality Noted Date Comments Erythromycin Nausea And Vomiting, Nausea Only 11/15/2013 Iodinated Contrast Media Anaphylaxis High 05/26/2016 Medications metoprolol succinate XL (TOPROL-XL) 100 mg 24 hr tablet metoprolol succinate ER 100 mg tablet,extended release 24 hr 6 Active cholecalciferol, vitamin D3, (VITAMIN D3 ORAL) Take by mouth daily. Liquid Active cycloSPORINE (Restasis) 0.05 % ophthalmic emulsion Restasis 0.05 % eye drops in a dropperette Active minoxidiL (LONITEN) 2.5 mg tablet Take 1.25 mg by mouth in the morning. Active pravastatin (PRAVACHOL) 40 mg tablet 5 Active traMADoL (ULTRAM) 50 mg tablet Take 1 tablet by mouth every 6 (six) hours as needed. Active Emgality Pen 120 mg/mL pen injector INJECT 2 PENS INTO SKIN ONCE A MONTH Active alendronate (FOSAMAX) 70 mg tabletIndication s:Disorder of bone density and structure, unspecified Take 1 tablet (70 mg total) by mouth every 7 days. Take in the morning with a full glass of water, on an empty stomach, and do not take anything else by mouth or lie down for the next 30 min. 12 tablet 3 4 04/10/20 25 Active Active Problems Problem Noted Date Diagnosed Date Vitamin D deficiency 03/12/2021 Disorder of bone density and structure, unspecif ied 04/08/2020 Family History Medical History Relation Comments Cancer Father Dementia Father Hypertension Father Stroke Father Alzheimer's disease Maternal Grandmother Cancer Maternal Grandmother Cancer Mother Brain Hip fracture Mother Hypertension Mother Osteopenia Mother Alzheimer's disease Paternal Grandmother Hypertension Sister Relation Status Comments Father Maternal Grandmother Mother Paternal Grandmother Sister Social History Tobacco Use Types Packs/Day Years [...] PM EST Sexual Orientation Not on file Last Filed Vital Signs Vital Sign Reading [...] Mass Index 22.52 04/10/2024 11:05 AM EDT Plan of Treatment Upcoming Encounters Date Type Department Care Team (Late st Contact Info) Description 04/24/2025 11:20 AM EDT Follow-Up [facility] Department of Endocrinology [address] [place] [address] Josefina Dobson MD [address] [facility] [place] [address] Health Maintenance Due Date Last Done Comments CT Colonography 1964 Colonoscopy 1964 Colorectal Cancer Screening 1964 FIT-DNA (Cologuard) 1964 FIT 1964 FOBT 1964 Flex Sigmoidoscopy - 5y 1964 HIV Screening 1964 DTaP,Tdap,and Td Vaccines (1 - Tdap) 1982 Hepatitis C Screening 1982 Zoster Vaccines (1 of 2) 2014 Bone Density Screening 01/16/2022 01/17/2020 COVID-19 Vaccine (4 - season) 2024 05/12/2022, 12/02/2020, 11/01/2020 Influenza Vaccine (#1) 2024 3, 06/22/2021, 05/26/2016 Breast Cancer Screening 12/20/2025 12/21/19 24, 12/21/2023, 10/27/2021, Additional history exists Pap Smear 10/14/2026 10/14/2023, 06/18/2020 Cervical Cancer Screening 10/14/2028 HPV/Cotest 10/14/2028 10/14/2023, 06/18/2020 HPV Vaccines Aged Out No longer eligi ble based on patient's age to complete this topic Hepatitis A Vaccines Aged Out No long er eligible based on patient's age to complete this topic MMR Vaccines Aged Out No longer eligi ble based on patient's age to complete this topic Meningococcal Vaccine Aged Out No ismael amarilys eligible based on patient's age to complete this topic Pneumococcal Vaccine: Pediatrics (0 to 5 Years) and At-Risk Patients (6 to 64 Years) Aged Out No longer eligible based on patient's age to complete this topic Procedures Procedure Name Priority Date/Time Associated Diagnosis Comments DXA OUTSIDE IMAGE STORAGE Routine 01/17/2020 8:57 AM EDT from Last 3 Months or Most Recently Relevant to Health Maintenance Results * DXA Outside Image Storage (01/17/2020 8:57 AM EDT) Narrative IMAGING - 01/17/2020 8:57 AM EDT This exam was uploaded for reference only. ??The result was provided by an outside institute. ??If looking for the result, please consult the Radiology or Cardiology department for further information. us Leidy Hanna MD IMG XR OUTSIDE PROCEDURES Final Result IMAGING from Last 3 Months or Most Recently Relevant to Health Maintenance Insurance [employer] OPEN ACCESS Care Teams Grants Officer Relationship Specialty Start Date End Date Shaheen Maharaj [address] [address] PCP - General Internal Medicine 09/19/19
--- OUTSIDE RECORDS SUMMARY | 2024-09-28 13:15 | XMS_ITS | Clinical Summary ---
Author Organization [facility] Address [address] [place] [address] Care Team Providers Care Measuring Machine Operator Name Role Phone Shaheen Maharaj MD Primary Care Provider Unavail able Allergies Active Allergy Reactions Criticality Noted Date Comments Erythromycin Nausea And Vomiting Low 07/29/2017 Iodine Anaphylaxis High 07/29/2017 Latex Rash Low 08/03/2017 Medications Medication Sig Dispensed Refills Start Date End Date Status pravastatin (PRAVACHOL) tablet 40 mg Take 40 mg by mouth daily. 0 Active metoprolol succinate (TOPROL-XL) 24 hr tablet 100 mg Take by mouth daily. 0 Active Cholecalciferol (VITAMIN D3) 2400 UNIT/ML LIQD Take by mouth. 0 Active Probiotic Product (PROBIOTIC DAILY PO) Take 1 tablet by mouth daily. 0 Active Active Problems No known active problems Social History Tobacco Use Types Packs/Day Years Used Date Smoking Tobacco: Former Smokeless Tobacco: Never Tobacco Cessation:Counseling Given: No Alcohol Use Standard Drinks/Week Comments No 0 (1 standard drink = 0.6 oz pur e alcohol) Sex and Gender Information Value Date Recorded Sex Assigned at Not on file Gender Identity Not on file Sexual Orientation Not on file Job Start Date Occupation Industry Not on file Not on file Not on file Last Filed Vital Signs Vital Sign Reading Time Taken Comments Blood Pressure 128/70 08/03/2017 10:52 AM EST Pulse 57 08/03/2017 10:52 AM EST Temperature 36 ??C (96.8 ??F) 08/03/2017 10:24 AM EST Respiratory Rate 14 08/03/2017 10:52 AM EST Oxygen Saturation 99% 08/03/2017 10:52 AM EST Inhaled Oxygen Concentration - - Weight 56.2 kg (124 lb) 08/03/2017 8:25 AM EST Height 160 cm (5' 3 ) 08/03/2017 8:25 AM EST Body Mass Index 21.97 08/03/2017 8:25 AM EST Plan of Treatment Health Maintenance Due Date Last Done Comments Hepatitis C Screening 1964 COVID-19 Vaccine (#1) 1964 Depression Screening 1976 Preventative Health Evaluation 1982 DTap / Tdap / Td (1 - Tdap) 1983 Cervical Cancer Screening (P ap Smear) 1985 Colon Cancer Screening (Colonoscopy) 2009 Breast Cancer Screening (Mammogram) 2014 Shingrix-Zoster Vaccine (1 of 2) 2014 Influenza Vaccine (#1) 2024 RSV Adult > 60+ Yrs or Pregn ant (1 - 1-dose 75+ series) 2039 Hepatitis B Vaccines Aged Out No long er eligible based on patient's age to complete this topic Pneumococcal Vaccine Aged Out No long er eligible based on patient's age to complete this topic RSV Ped < 20 months Aged Out No longe r eligible based on patient's age to complete this topic Medical Devices Implanted Type Area Tensile Tester Device Identifier Shelf Expiration Date Model / Serial / Lot Pin Fixation Orthosorb Lactosorb 1 Od1.3 Mm [facility] - [id number] - [id number] Implanted:Qty: 1 on 08/03/2017 by Leonidas Brandt DPM at [facility] Location Right: Foot [employer] 02/25/2022 [id number] / / [id number] Amniofix Wrap 2x2cm [facility] - [id number] - [id number] Implanted:Qty: 1 on 08/03/2017 by Leonidas Brandt DPM at [facility] Location Right: Foot [employer] 01/28/2020 [id number] / [id number] / Screw Tomas 2.0x12mm [facility] - [id number] - [id number] Implanted:Qty: 1 on 08/03/2017 by Leonidas Brandt DPM at [facility] Location Right: Foot [employer] [id number] / / Screw Tomas 2.0x10mm [facility] - [id number] - [id number] Implanted:Qty: 1 on 08/03/2017 by Leonidas Brandt DPM at [facility] Location Right: Foot [employer] [id number] / / Care Teams Measuring Machine Operator Relationship Specialty Start Date End Date Shaheen Maharaj MD PCP - General Internal Medicine 08/02/17
--- OUTSIDE RECORDS SUMMARY | 2024-09-28 13:15 | XMS_ITS | Encounter Summary ---
Author Organization [facility] Address [address] [place] [address] Care Team Providers Care Cold Water Machine Operator Name Role Phone Shaheen Maharaj Primary Care Provider [phone] Encounter Details Date Type Department Care Team (Late st Contact Info) Description 03/30/2021 Orders Only [facility] [address] [place] [address] Leidy Hanna MD Social History Tobacco Use Types Packs/Day Years Used Date Smoking Tobacco: Former Smokeless Tobacco: Former Alcohol Use Standard Drinks/Week Comments Yes 0 (1 standard drink = 0.6 oz pur e alcohol) Comments No Sex and Gender Information Value Date Recorded Sex Assigned at Female 08/02/2022 8:33 PM EST Legal Sex Female 10:49 AM EST Gender Identity Female 08/02/2022 8:33 PM EST Sexual Orientation Not on file COVID-19 Exposure Response Date Recorded In the last month, have you been in contact with someone who was confirmed or suspected to have Coronavirus / COVID-19? No / Unsure 03/12/2021 9:58 AM EDT documented as of this encounter Plan of Treatment Upcoming Encounters Date Type Department Care Team (Late st Contact Info) Description 04/24/2025 11:20 AM EDT [facility] [address] [place] [id number] Josefina Dobson MD [address] [facility] [address] documented as of this encounter Visit Diagnoses Not on filedocumented in this encounter Care Teams Cold Water Machine Operator Relationship Specialty Start Date End Date Shaheen Maharaj [address] [address] PCP - General Internal Medicine 09/19/19 documented as of this encounter
--- OUTSIDE RECORDS SUMMARY | 2024-09-28 13:15 | XMS_ITS | Clinical Summary ---
Author Organization [facility] Address [address] [place] [id number] Care Team Providers Care Asphalt Paver Name Role Phone Glenny Cash MD Primary Care Provider [phone] Allergies Active Allergy Reactions Criticality Noted Date Comments Iodinated Contrast Media Anaphylaxis High 05/26/2016 Erythromycin GI Intolerance/Nausea/Vomiting Low 05/26/2016 Medications Medication Sig Dispensed Refills Start Date End Date Status nitrofurantoin monohydrate (MACROBID) 100 MG capsule Take 100 mg by mouth 2 (two) times a day. 0 04/19/2016 Active TOPROL XL 100 MG 24 hr tablet 03/20/2016 Active pravastatin (PRAVACHOL) 40 MG tablet 03/20/2016 Active Family History Medical History Relation Name Comments Dementia Father Stroke Father Stomach cancer Maternal Grandmother Brain cancer Mother Alzheimer's disease Paternal Grandmother Relation Name Status Comments Father Alive Maternal Grandmother Mother Paternal Grandmother Social History Tobacco Use Types Packs/Day Years Used Date Smoking Tobacco: Former Alcohol Use Standard Drinks/Week Comments No 0 (1 standard drink = 0.6 oz pur e alcohol) Sex and Gender Information Value Date Recorded Sex Assigned at Not on file Gender Identity Not on file Sexual Orientation Not on file Last Filed Vital Signs Vital Sign Reading Time Taken Comments Blood Pressure - - Pulse 60 05/26/2016 11:04 AM EDT Temperature - - Respiratory Rate 12 05/26/2016 11:04 AM EDT Oxygen Saturation - - Inhaled Oxygen Concentration - - Weight 58.1 kg (128 lb) 05/26/2016 11:04 AM EDT Height 160 cm (5' 3 ) 05/26/2016 11:04 AM EDT Body Mass Index 22.67 05/26/2016 11:04 AM EDT Plan of Treatment Health Maintenance Due Date Last Done Comments Hepatitis C Virus Screening 1964 HIV Screening 1977 DTaP/Tdap/Td Vaccines (1 - Tdap) 1983 Colonoscopy 2009 Pneumococcal Vaccines 50+ (1 of 1 - PCV) 2014 Zoster (Shingles) Vaccine (1 of 2) 2014 Influenza Vaccine 03/29/2024 COVID-19 Vaccine (1 - 2023-25 season) 2024 Mammogram 12/20/2025 12/21/2023, 03/0 08/2021, 05/17/2020, Additional history exists Pap Smear (Ages 21-65) 10/14/2026 10/14/2023, 2019 RSV Vaccine 60 years and older and Patients (1 - 1-dose 75+ series) 2039 Hepatitis B Vaccines Aged Out No long er eligible based on patient's age to complete this topic Pneumococcal Vaccine: Pediatric (0-5 Years) and At-Risk Patients (6 to 49 Years) Aged Out No longer eligible based on patient's age to complete this topic Procedures Procedure Name Priority Date/Time Associated Diagnosis Comments MG SCREENING DIGITAL BREAST RANDI- BILATERAL Routine 12/21/2023 3:35 PM EDT THINPREP PAP(ENTERTAINMENT DIRECTOR) HPV SCR RFX HPV 16,18/45 Routine 10/14/2023 2:40 PM EST from Last 3 Months or Most Recently Relevant to Health Maintenance Results * MG SCREENING DIGITAL BREAST RANDI- BILATERAL (12/21/2023 3:35 PM EDT) Anatomical Region Laterality Modality Other 12/21/2023 3:00 PM EDT 12/21/2023 3:00 PM EDT Narrative 12/30/2023 11:03 AM EDT HISTORY: Patient is 58 years old and is seen for screening. The patient has a history of left ultrasound core biopsy in June, and bilateral needle biopsy in August, - benign. ??The patient has no personal history of breast or ovarian cancer. The patient has no family history of breast cancer. FILMS COMPARED: The present examination has been compared to prior imaging studies dated 05/16/2020 and 10/19/2021. RANDI STATEMENT: Computer-aided detection was utilized by the radiologist in the interpretation of this examination. 3D tomosynthesis digital mammographic images were obtained using standard projections. MAMMOGRAM FINDINGS: The breasts are extremely dense, which lowers the sensitivity of mammography. ??(ACR BIRADS density Category d) * No suspicious masses, calcifications or other abnormalities are seen in either breast. ??There are no significant changes from the prior study. IMPRESSION: There is no mammographic evidence of malignancy. Routine follow-up mammogram in 1 year is recommended. The patient will receive a lay summary of the results of this breast imaging exam. Lay summaries for mammography examinations will also identify the patients personal breast tissue composition as required by state law. BIRADS Category 1: Negative Thank you for referring your patient to us, Radha Schneider MD [phone] (Electronically Signed - 12/30/2023 11:03) Copy: GLENNY CASH MD [facility] [address] [place] [address] PATIENT , ?? Procedure Note Radha Schneider MD - 12/30/2023 HISTORY: Patient is 58 years old and is seen for screening. The patient has a history of left ultrasound core biopsy in June,and bilateral needle biopsy in August, - benign. The patient has nopersonal history of breast or ovarian cancer. The patient has no family history of breast cancer. FILMS COMPARED: The present examination has been compared to prior imaging studies dated05/16/2020 and 10/19/2021. RANDI STATEMENT: Computer-aided detection was utilized by the radiologist in theinterpretation of this examination. 3D tomosynthesis digital mammographic images were obtained using standardprojections. MAMMOGRAM FINDINGS: The breasts are extremely dense, which lowers the sensitivity ofmammography. (ACR BIRADS density Category d) * No suspicious masses, calcifications or other abnormalities are seen ineither breast. There are no significant changes from the prior study. IMPRESSION: There is no mammographic evidence of malignancy. Routine follow-up mammogram in 1 year is recommended. The patient will receive a lay summary of the results of this breastimaging exam. Lay summaries for mammography examinations will alsoidentify the patients personal breast tissue composition as required bystate law. BIRADS Category 1: Negative Thank you for referring your patient to us, Radha Schneider MD [phone] (Electronically Signed - 12/30/2023 11:03) Copy: GLENNY CASH MD [facility] [address] [place] [address] PATIENT , Xochilt Gutierrez MD IMG LEGACY PROCEDURE S * ThinPrep Pap(Coal Hauler) HPV Scr Rfx HPV 16,18/45 (10/14/2023 2:40 PM EST) Report Report [facility] Comment: Final Gynecological Cytology Report ThinPrep Pap Test, HPV Screen, Reflex HPV Genotype SPECIMEN ADEQUACY: SATISFACTORY FOR EVALUATION. INTERPRETATION: NEGATIVE FOR INTRAEPITHELIAL LESION OR MALIGNANCY. Atrophy Electronically Signed: ??Susannah Lisa, YANIQUE(ASCP) CLINICAL INFORMATION: LMP: NG Clinical History: ??RTN Biopsy Date: ??NG Specimen Source: ??Endo/Ectocervix Previous Pap Date: ??06/18/2020 HPV RESULTS: HPV mRNA E6/E7 ?? [id number] ?? Approved: 10/17/23 Negative ? REF RANGE: Negative CPT Codes: 60040 ICD Codes: Z01.411, Z01.419 10/14/2023 2:40 PM EST 10/15/2023 2:46 AM EST Narrative [facility] - 10/17/2023 5:06 PM EST CC: GLENNY CASH MD, FAX Xochilt Gutierrez MD PATHOLOGY/CYTOLOGY [facility] [address], [place] from Last 3 Months or Most Recently Relevant to Health Maintenance Care Teams Asphalt Paver Relationship Specialty Start Date End Date Glenny Cash [place] [address] PCP - General 04/13/16
== END 2024-09-28 13:54 | disposition home or self-care (01) ==
PROVIDERS: PCP Internal Medicine; Visit Provider Nurse Practitioner Family
DX: G43.709 Chronic migraine without aura, not intractable, without status migrainosus (principal); H53.9 Unspecified visual disturbance; G25.81 Restless legs syndrome; F45.8 Other somatoform disorders
CPT/HCPCS: 99214

== ENCOUNTER 2025-03-28 13:01 | Outpatient (REF) | payer OTHER, SELFPAY ==
[2025-03-28 17:49] LABS: MANUAL DIFF FLAG NO
[2025-03-28 18:27] LABS: Hematocrit 40.9 % (37.0-47.0); Hemoglobin 13.6 g/dl (12.0-16.0); Imm Gran Abs Auto 0.03 X10*3/uL (0.00-0.03); Imm Gran Pct Auto 0.5 % (0.0-0.4); Lymphocytes Absolute Auto 1.9 X10*3/uL (1.2-4.9); Mean Corpuscular HGB Conc 33.3 g/dl (31.0-35.0); Mean Corpuscular Hemoglobin 30.9 pg (27.0-33.0); Mean Corpuscular Volume 93.0 fL (80.0-98.0); NRBC Abs Auto 0.000 X10*3/uL (0.0-0.012); NRBC Pct Auto 0.0 /100WBC (0.0-0.2); Platelet Count 221 X10*3/uL (160-400); Red Blood Count 4.40 X10*6/uL (4.20-5.50); White Blood Count 6.5 X10*3/uL (4.8-10.8)
[2025-03-28 18:29] LABS: Alanine Aminotransferase 18 U/L (0-31); Albumin Level 4.6 g/dL (3.5-5.0); Alkaline Phosphatase 75 U/L (39-117); Anion Gap 15 (12-20); Aspartate Amino Transferase 26 U/L (5-31); Blood Urea Nitrogen 14 mg/dL (9-16); Calcium 9.1 mg/dL (8.4-10.2); Carbon Dioxide 27 mmol/L (22-29); Chloride 106 mmol/L (96-108); Estimated Glomerular Filt Rate > 60; Iron 104 mcg/dL (30-160); Percent Iron Saturation 30 % (15-50); Potassium 4.4 mmol/L (3.3-5.1); Sodium 144 mmol/L (135-145); Total Iron Binding Capacity 348 mcg/dL (228-428); Total Protein 7.1 g/dL (6.5-8.0); Unsaturated Iron Binding 244 ug/dL
[2025-03-28 18:43] LABS: Ferritin 58 ng/mL (10-250)
[2025-03-28 18:52] LABS: Folate 13.3 ng/mL (> or = 4.0); Vitamin B12 653 pg/mL (200-900)
== END 2025-03-28 13:02 | disposition home or self-care (01) ==
LOC: HO.HKASLDS 13:01
PROVIDERS: PCP Internal Medicine; Visit Provider Nurse Practitioner Family
DX: G43.709 Chronic migraine without aura, not intractable, without status migrainosus (principal); G25.81 Restless legs syndrome; F45.8 Other somatoform disorders; H53.9 Unspecified visual disturbance; D64.9 Anemia, unspecified
CPT/HCPCS: 36415; 80053; 82607; 82728; 82746; 83540; 85025

== ENCOUNTER 2025-03-28 13:01 | Outpatient (AMB) | payer OTHER, SELFPAY ==
[2025-03-28 13:03] VITALS: BP 112/70; PULSE 80; O2SAT 98; BMI 21.3
--- NOTE | 2025-03-28 13:03 | MHC.OFFVIS ---
Vital Signs 03/28/25 13:03 Height 5 ft 3 in Weight 120 lb 6 oz BMI 21.3 BP 112/70 Pulse 80 Pulse Source Pulse Oximeter Pulse Oximetry (%) 98 Oxygen Delivery Method Room Air Intake Visit Reasons: Follow up 6mo Intake Note: Patient presents follow up Migraine Medication. Patient states doing ok she is taking nurtec. States ocular migraines on/off. States long days of work(12hrs)might be cause do to eye strain. Also, states white floaters in right eye. Allergies IV CONTRAST DYE Allergy (Uncoded 09/28/24 13:03) Anaphylaxis Medication List - Last Reconciled 03/28/25 by PRACHI Day alendronate 70 mg PO QWEEK baclofen 10 mg PO TID PRN 30 days calcium carbonate (Calcium 600) 600 mg PO DAILY cholecalciferol (vitamin D3) (Baby Vitamin D3) 10 mcg PO DAILY cyclosporine 0.05% (Restasis) 1 drp ophthalmic (eye) BID metoprolol succinate ER 100 mg PO DAILY minoxidil takes half perfluorohexyloctane (PF) 100% (Miebo (PF)) 1 drp ophthalmic (eye) QID pravastatin 40 mg PO DAILY rimegepant (Nurtec ODT) 75 mg PO ONCE PRN 30 days MDD 1 tab tobramycin-dexamethasone 0.3-0.1 % 0 drps ophthalmic (eye) HPI Comments Details: 58-yr-old female presents for f/u visit for migraine and sleep difficulties. Pt denies any significant interval medical changes. Patient reports she is having an increase in her migraine frequency, which she thinks may be attributed to an increase in her workload, which is negatively impacting her sleep as well. She is on her computer now- sometimes 10-12 x's per day. Also, she plans to retire at the end of the year. She has continued Nurtec, which is helpful- but only receives so many tabs per month. She generally does not use OTC NSAIDs or Tylenol- when she was younger, her fiance related to using naproxen frequently and masking s/s cardiac signs or symptoms. She notes that she continues to have heaviness and fatigue, but also restlessness and urge to move when in bed or when sitting for longer periods. She has joined the [employer]- and is swimming more regularly. She fis now noticing floaters- now taking mybo for dry eye, and has been referred for possible tx of narrow angles. 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 Exam Vital Signs: Last Vital Signs Pulse 80 03/28/25 13:03 BP 112/70 03/28/25 13:03 Pulse Ox 98 03/28/25 13:03 Oxygen Delivery Method Room Air 03/28/25 13:03 BMI result Body Mass Index 21.3 Const General: cooperative and no acute distress Orientation/consciousness: patient oriented x3 Resp Effort & Inspection: normal respiratory effort and able to speak in complete sentences Neuro General: patient oriented x3 Cranial nerves: Yes CN's II-XII intact bilaterally Cognition (Neuro): normal cognition Psych Appearance: grossly normal Mental Status: mental status grossly normal Speech and movement: Normal speech and movement present Affect: normal affect Attitude: cooperative Assessment & Plan Assessment & Plan (1) Chronic migraine without aura: Code(s): G43.709 - Chronic migraine without aura, not intractable, without status migrainosus Category: Medical Qualifiers: Status migrainosus presence: without status migrainosus Intractability: not intractable Qualified Code(s): G43.709 - Chronic migraine without aura, not intractable, without status migrainosus (2) Visual aura: Code(s): H53.9 - Unspecified visual disturbance Category: Medical (3) Restless leg syndrome: Code(s): G25.81 - Restless legs syndrome Category: Medical (4) Bruxism: Code(s): F45.8 - Other somatoform disorders Category: Medical Plan For overall health and headache management: Concur with adding swimming exercises on a regular basis. For acute migraine treatment: Continue Rimegepant ODT (Nurtec ODT) 75mg, 1 tab every other day. Max of 1 tabs (75mg) per 24 hours. May adjunct with OTC Tylenol 650mg q 4-6 hours. Migraine treatment contraindications: Triptans contraindicated d/t HTN/HLD. For chronic migraine prevention: Riboflavin and Magnesium Continue Metoprolol- ordered for HTN management. Previous migraine tx trials- amitriptyline and nortriptyline- was ineffective and not tolerated. Migraine treatment contraindications: Would avoid Aimovig d/t risk for worsening constipation. Would avoid CG RP MaBs in general due to patient's hesitancy regarding long duration of action. Future considerations: Atogepant-patient is hesitant to start this, she hopes that when she stops working, the headaches will subside on their own. For floaters: ? aura vs dry eye s/s Continue dry eye treatment F/u w/ service coordinator and first aid attendant- For bruxism and cervicalgia: Patient may benefit from doing massage, may try a hydro-massage bed therapy at her gym. She may benefit from trying home muscle relaxation techniques, to reduce neck and upper back tightness. Invisalign retainer Future considerations- PT, dry needling, Botox tx. For sleep/RLS s/s: Check labs for common etiologies Patient may benefit from reading ?navigating life with restless leg syndrome? by Dr. Beto Duran and the [place] [employer] Will follow-up upon review of above and patient to follow-up in clinic in 6 months or sooner prn. Orders: Orders Complete Blood Count Auto Diff Today D64.9 - Anemia, unspecified, R20.2 - Paresthesia of skin Comprehensive [place]. Panel Fast Today D64.9 - Anemia, unspecified, R20.2 - Paresthesia of skin IRON PROFILE Today D64.9 - Anemia, unspecified, R20.2 - Paresthesia of skin Vitamin B12 and Folate Today D64.9 - Anemia, unspecified, R20.2 - Paresthesia of skin Ferritin Today D64.9 - Anemia, unspecified, R20.2 - Paresthesia of skin Coding Level of Care Code Est Pt Level 4 (47895) Diagnoses Chronic migraine without aura without status migrainosus, not intractable G43.709 Status migrainosus presence: without status migrainosus Intractability: not intractable Visual aura H53.9 Restless leg syndrome G25.81 Bruxism F45.8
--- OUTSIDE RECORDS SUMMARY | 2025-03-28 13:12 | XMS_ITS | Clinical Summary ---
Author Organization [facility] Address [address] [place] [address] Care Team Providers Care Ramp Supervisor Name Role Phone Shaheen Maharaj MD Primary [...] 57 08/03/2017 10:52 AM EST Temperature 36 C (96.8 F) 08/03/2017 10:24 AM EST Respiratory Rate 14 [...] (1 of 2) 2014 Influenza Vaccine (#1) 2025 RSV Adult > 60+ Yrs or Pregn [...] this topic Medical Devices Implanted Type Area Business Process Consultant Device Identifier Shelf Expiration Date Model / Serial / Lot Pin Fixation Orthosorb Lactosorb 1 Od1.3 Mm [facility] - [id number] - [id number] Implanted:Qty: 1 on 08/03/2017 by Leonidas Brandt DPM at [facility] Location Right: Foot [employer] 02/25/2022 [id number] / / [id number] Amniofix Wrap 2x2cm [facility] - [id number] - [id number] Implanted:Qty: 1 on 08/03/2017 by Leonidas Brandt DPM at [facility] Location Right: Foot [employer] 01/28/2020 [id number] / [id number] / Screw Tomas 2.0x12mm [facility] - [id number] - [id number] Implanted:Qty: 1 on 08/03/2017 by Leonidas Brandt DPM at [facility] Location Right: Foot [employer] [id number] / / Screw Tomas 2.0x10mm [facility] - [id number] - [id number] Implanted:Qty: 1 on 08/03/2017 by Leonidas Brandt DPM at [facility] Location Right: Foot [employer] [id number] / / Care Teams Ramp Supervisor Relationship Specialty Start Date End Date Shaheen Maharaj MD PCP - General Internal Medicine 08/02/17
--- OUTSIDE RECORDS SUMMARY | 2025-03-28 13:12 | XMS_ITS ---
[facility] Name [facility] History of Medication Use Medication Directions Dispensed Refills Start Date End Date Stat us alendronate (FOSAMAX) 70 mg tablet TAKE 1 TABLET BY MOUTH EVERY 7 DAYS ON AN EMPTY STOMACH DIRECTED 03/30/2021 04/10/2024 active nitrofurantoin monohydrate (MACROBID) 100 MG capsule Take 100 mg by mouth 2 (two) times a day. 04/19/2016 active pravastatin (PRAVACHOL) 40 MG tablet 03/20/2016 active TOPROL XL 100 MG 24 hr tablet 03/20/2016 active cholecalciferol, vitamin D3, (VITAMIN D3 ORAL) Take by mouth daily. Liquid 07/16/2022 active cycloSPORINE (Restasis) 0.05 % ophthalmic emulsion Restasis 0.05 % eye drops in a dropperette active minoxidiL (LONITEN) 2.5 mg tablet Take 1.25 mg by mouth in the morning. active perfluorohexyloctane, PF, (Miebo, PF,) 100 % drops Administer into affected eye(s) in the morning and at noon and in the evening and before bedtime. active rimegepant (Nurtec ODT) 75 mg tablet,disintegrating Take by mouth. active Allergies Allergen Reaction Severity Comment Documented Date Source Statu s IODINATED CONTRAST MEDIA ANAPHYLAXIS 05/26/2016 [facility] active ERYTHROMYCIN NAUSEA ONLY 11/15/2013 [facility] acti ve ERYTHROMYCIN BASE VOMITING [facility] IODINATED DIAGNOSTIC AGENTS ANAPHYLAXIS Severe [facility] Problems Problem Status Onset Date Problem Type Date of Resolution Source Vitamin D deficiency active 2021-03-12 ProblemAct [facility] Dental fistula active EncounterDiagnosisAct [facility] Encounter for monitoring bisphosphonate therapy active 2025-02-27 ProblemAct [facility] Age-related osteoporosis without current pathological fracture active 2025-02-27 ProblemAct [facility] Depressive disorder active 2012-09-06 ProblemAct [facility] Osteopenia active ProblemAct [facility] Abnormal nipple active ProblemAct [facility] Essential hypertension active 2012-09-06 ProblemAct [facility] Gastroesophageal reflux disease active 2017-05-05 ProblemAct [facility] Muscle weakness active 2019-05-[address] [facility] Encounters Encounter Type Encounter Reason Primary Diagnosis Location Date Ambulatory Age-related osteoporosis without current Age-related osteoporosis without current pathological fracture [facility] 02/27/2025 Ambulatory Encntr for swimming instructor exam (general) (routine) w/o abn findings Encntr for swimming instructor exam (general) (routine) w/o abn findings [facility] 10/24/2024 Ambulatory Disorder of bone density and structure, Disorder of bone density and structure, unspecified [facility] 04/10/2024 Ambulatory Encntr for swimming instructor exam (general) (routine) w/o abn findings Encntr for swimming instructor exam (general) (routine) w/o abn findings [facility] 10/14/2023 Ambulatory [facility] 08/11/2022 Ambulatory Disorder of bone density and structure, unspecified [facility] 07/16/2022 Ambulatory Disorder of bone density and structure, unspecified [facility] 06/25/2022 Ambulatory [facility], [facility] 07/13/2021 Care Team Organization Name Specialty Phone Email Start Date End Da te [facility] 09/20/2024 [facility] 09/05/2024 [facility] 202201/03/2025 [facility] 01[facility]28/2023 [facility] 2 07/16/2022 [facility], [facility] 07/14/2021 [facility], [facility] 07/13/2021 07/13/2021 [facility]
--- OUTSIDE RECORDS SUMMARY | 2025-03-28 13:12 | XMS_ITS | Clinical Summary ---
Author Organization [facility] Address [address] [place] [address] Care Team Providers Care Systems Analyst Engineer Name Role Phone Shaheen Maharaj Primary Care Provider Unavailabl e Allergies Active Allergy Reactions Criticality Noted Date Comments Erythromycin Nausea And Vomiting, Nausea Only 11/15/2013 Iodinated Contrast Media Anaphylaxis High 05/26/2016 Medications metoprolol succinate XL (TOPROL-XL) 100 mg 24 hr tablet 6 Active cholecalciferol , vitamin D3, (VITAMIN D3 ORAL) Take by mouth in the morning. Liquid . Active minoxidiL (LONITEN) 2.5 mg tablet Take 1.25 mg by mouth in the morning. Active pravastatin (PRAVACHOL) 40 mg tablet 5 Active perfluorohexylo ctane, PF, (Miebo, PF,) 100 % drops Administer into affected eye(s) in the morning and at noon and in the evening and before bedtime. Active rimegepant (Nurtec ODT) 75 mg tablet,disinteg rating Take by mouth. Activ e cycloSPORINE (Restasis) 0.05 % ophthalmic emulsion Restasis 0.05 % eye drops in a dropperette 025 Discontin ued(Patie nt not taking) traMADoL (ULTRAM) 50 mg tablet Take 1 tablet by mouth every 6 (six) hours as needed. 025 Discontin ued(Patie nt not taking) Emgality Pen 120 mg/mL pen injector INJECT 2 PENS INTO SKIN ONCE A MONTH 025 Discontin ued(Patie nt not taking) alendronate (FOSAMAX) 70 mg tabletIndicatio ns:Disorder of bone density and structure, unspecified Take 1 tablet (70 mg total) by mouth every 7 days. Take in the morning with a full glass of water, on an empty stomach, and do not take anything else by mouth or lie down for the next 30 min. 12 tablet 3 4 025 Discontin ued(Patie nt not taking) Active Problems Problem Noted Date Diagnosed Date Age-related osteoporosis wit hout current pathological fracture 02/27/2025 Encounter for monitoring bisphosphonate therapy 02/27/2025 Vitamin D deficiency 03/12/2021 Resolved Problems Problem Noted Date Diagnosed Date Resolved Date Disorder of bone density and structure, unspecified 04/08/2020 02/27/2025 Encounters Date Type Department Care Team Description 02/27/2025 9:40 AM EDT Follow-Up [facility] Department of Endocrinology [address] [place] [address] Josefina Dobson MD Age-related osteoporosis without current pathological fracture (Primary Dx); Encounter for monitoring bisphosphonate therapy; Dental fistula from Last 3 Months Family History Medical History Relation Comments Cancer [...] suspected to have Coronavirus/COVID-19? No / Unsure 02/27/2025 8:51 AM EDT Last Filed Vital Signs Vital Sign Reading Time Taken Comments Blood Pressure 126/80 02/27/2025 9:30 AM EDT Pulse 64 02/27/2025 9:30 AM EDT Temperature - - Respiratory Rate - - Oxygen Saturation - - Inhaled Oxygen Concentration - - Weight 55.3 kg (121 lb 14.4 oz) 02/27/2025 9:30 AM EDT Height 159.5 cm (5' 2.8 ) 02/27/2025 9:30 AM EDT Body Mass Index 21.73 02/27/2025 9:30 AM EDT Plan of Treatment Upcoming Encounters Date Type Department Care Team (Late st Contact Info) Description 03/12/2026 10:20 AM EDT Follow-Up [facility] Department of Endocrinology [address], [place] [address] Josefina Dobson MD [address] [facility] [place], [place] [id number] Health Maintenance Due Date Last Done Comments CT Colonography 1964 FIT-DNA (Cologuard) 1964 FIT 1964 FOBT 1964 Flex Sigmoidoscopy - 5y 1964 HIV Screening 1964 DTaP,Tdap,and Td Vaccines (1 - Tdap) 1982 Hepatitis C Screening 1982 Pneumococcal Vaccine, 50+ Years (1 of 1 - PCV) 2014 Zoster Vaccines (1 of 2) 2014 Bone Density Screening 01/16/2022 01/17/2020 COVID-19 Vaccine ( season) 2024 05/12/2022, 12/02/2020, 11/01/2020 Influenza Vaccine (#1) 2025 , 06/17/2023, 06/22/2021, Additional history exists Pap Smear 10/14/2026 10/14/2023, 06/18/2020 Breast Cancer Screening 01/24/2027 01/25/20, 01/24/2025, 12/21/2023, Additional history exists Cervical Cancer Screening 10/14/2028 HPV/Cotest 10/14/2028 10/14/2023, 06/18/2020 Colonoscopy 02/26/2034 02/27/2024 Colorectal Cancer Screening 02/26/2034 HPV Vaccines Aged Out No longer eligi [...] Procedure Name Priority Date/Time Associated Diagnosis Comments VITAMIN D,25-OH,TOTAL,IA (Q) Routine 02/11/2025 10:53 AM EDT Vitamin D deficiency Disorder of bone density and structure, unspecified CREATININE (Q) Routine 02/11/2025 10:53 AM EDT Vitamin D deficiency Disorder of bone density and structure, unspecified CALCIUM, RANDOM URINE (W/ CREATININE) (Q) Routine 02/11/2025 10:53 AM EDT Vitamin D deficiency Disorder of bone density and structure, unspecified CALCIUM (Q) Routine 02/11/2025 10:53 AM EDT Vitamin D deficiency Disorder of bone density and structure, unspecified ALKALINE PHOSPHATASE, BONE SPECIFIC (Q) Routine 02/11/2025 10:53 AM EDT Vitamin D deficiency Disorder of bone density and structure, unspecified ALBUMIN (Q) Routine 02/11/2025 10:53 AM EDT Vitamin D deficiency Disorder of bone density and structure, unspecified C TELOPEPTIDE (CTX) (Q) Routine 02/11/2025 10:53 AM EDT Senile osteoporosis Vitamin D deficiency DXA OUTSIDE IMAGE STORAGE Routine 01/17/2020 8:57 AM EDT from Last 3 Months or Most Recently Relevant to Health Maintenance Results * CREATININE (Q) (02/11/2025 10:53 AM EDT) [facility] CREATININE 0.76 0.50 - 1.05 mg/dL [email or web address] EGFR 90 > OR = 60 mL/min/1.7 3m2 [employer] Blood 02/11/2025 10:5 3 AM EDT 02/11/2025 10:56 AM EDT Narrative [facility] - 02/15/2025 9:58 AM EDT FASTING:YES FASTING: YES Josefina MARTINEZ [employer] LAB ORDERABLES Final R esult Performing Organization Address [facility] Co de Phone Number [facility] [address] [place] [phone] * VITAMIN D,25-OH,TOTAL,IA (Q) (02/11/2025 10:53 AM EDT) [facility] VITAMIN D,25-OH,TOTAL,IA 41 30 - 100 ng/mL [employer] Comment: Vitamin D Status 25-OH Vitamin D: Deficiency: <20 ng/mL Insufficiency: 20 - 29 ng/mL Optimal: > or = 30 ng/mL For 25-OH Vitamin D testing on patients on D2-supplementation and patients for whom quantitation of D2 and D3 fractions is required, the [facility](TM) 25-OH VIT D, (D2,D3), LC/MS/MS is recommended: order code 13791 (patients >2yrs). See Note 1 Note 1 For additional information, please refer to http://education.[employer]/faq/HVN439 (This link is being provided for informational/ educational purposes only.) Blood 02/11/2025 10:5 3 AM EDT 02/11/2025 10:56 AM EDT Narrative [facility] - 02/15/2025 9:58 AM EDT FASTING:YES FASTING: YES Josefina MARTINEZ [employer] LAB ORDERABLES Final R esult Performing Organization Address [facility] Co de Phone Number [facility] [address] [place] [phone] * CALCIUM (Q) (02/11/2025 10:53 AM EDT) Pathologist [facility] CALCIUM 10.1 8.6 - 10.4 mg/dL [employer] Blood 02/11/2025 10:5 3 AM EDT 02/11/2025 10:56 AM EDT Narrative [facility] - 02/15/2025 9:58 AM EDT FASTING:YES FASTING: YES Josefina MARTINEZ [employer] LAB ORDERABLES Final R esult Performing Organization Address [facility] Co de Phone Number [facility] [address] [place] [phone] * ALBUMIN (Q) (02/11/2025 10:53 AM EDT) [facility] Albumin 5.0 3.6 - 5.1 g/dL [employer] Blood 02/11/2025 10:5 3 AM EDT 02/11/2025 10:56 AM EDT Narrative [facility] - 02/15/2025 9:58 AM EDT FASTING:YES FASTING: YES Josefina MARTINEZ [employer] LAB ORDERABLES Final R esult Performing Organization Address [facility] de Phone Number [facility] [address] [place] [phone] * ALKALINE PHOSPHATASE, BONE SPECIFIC (Q) (02/11/2025 10:53 AM EDT) [facility] ALKALINE PHOSPHATASE BONE SPECIFIC 14.3 5.6 - 29.0 mcg/L [facility] Comment: Reference Range, Premenopausal (mcg/L) 35-45 years 5.0-18.2 Blood 02/11/2025 10:5 3 AM EDT 02/11/2025 10:56 AM EDT Narrative [facility] - 02/15/2025 9:58 AM EDT FASTING:YES FASTING: YES Josefina MARTINEZ [employer] LAB ORDERABLES Final R esult Performing Organization Address [facility]/ZIP Co de Phone Number [email or web address]/[place] [address] [facility] [place] [address] * CALCIUM, RANDOM URINE (W/ CREATININE) (Q) (02/11/2025 10:53 AM EDT) [facility] CALCIUM/CREATINI NE RATIO 176 10 - 320 mg/g creat [employer] [facility] CALCIUM, RANDOM URINE 3.7 See Note: mg/dL [employer] Comment: Reference Range: Reference Range Not established [facility] CREATININE, RANDOM URINE 21 20 - 275 mg/dL [employer] Urine 02/11/2025 10:5 3 AM EDT 02/11/2025 10:56 AM EDT Narrative [facility] - 02/15/2025 9:58 AM EDT FASTING:YES FASTING: YES Josefina Dobson MD [facility] [employer] LAB ORDERABLES Final R esult Performing Organization Address [facility] Co de Phone Number [facility] [address] [place] [phone] * C TELOPEPTIDE (CTX) (Q) (02/11/2025 10:53 AM EDT) [facility] C TELOPEPTIDE (CTX) 290 see note pg/mL [facility] Comment: Unable to flag abnormal result(s), please refer to reference range(s) below: Reference Range, Females: <5 years: Not Established 5-9 years: 574-1849 pg/mL 10-13 years: 519-2415 pg/mL 14-17 years: 242-1291 pg/mL 18-29 years: 64-640 pg/mL 30-39 years: 60-650 pg/mL 40-49 years: 50-465 pg/mL >49 years: Not Established No reference range is provided for postmenopausal women because of the increased rate of bone turnover post-menopause. It is recommended that results for postmenopausal women be compared to the premenopausal reference range as this will give a better indication of their rate of bone loss. For additional information, please refer to https://education.[employer]/faq/GXF242 (This link is being provided for informational/ educational purposes only.) Blood 02/11/2025 10:5 3 AM EDT 02/11/2025 10:56 AM EDT Narrative [facility] - 02/15/2025 9:58 AM EDT FASTING:YES FASTING: YES us Josefina Dobson MD AMB [facility] LAB ORDERABLES Final R esult [facility] [address] [facility] [place] [address] * DXA Outside Image Storage (01/17/2020 8:57 AM EDT) Narrative IMAGING - 01/17/2020 8:57 AM EDT This exam was uploaded for reference only. The result was provided by an outside institute. If looking for the result, please consult the Radiology or Cardiology department for further information. us Leidy Hanna MD IMG XR OUTSIDE PROCEDURES Final Result IMAGING from Last 3 Months or Most Recently Relevant to Health Maintenance Insurance [employer] OPEN ACCESS Care Teams Systems Analyst Engineer Relationship Specialty Start Date End Date Shaheen Maharaj PCP - General Internal Medicine 09/19/19
--- OUTSIDE RECORDS SUMMARY | 2025-03-28 13:12 | XMS_ITS | Clinical Summary ---
Author Organization [facility] [place] [address] Care Team Providers Care Supervisor Plate Forming Name Role Phone Shaheen Maharaj MD Primary Care Provider [phone] Social History Tobacco Use Types Packs/Day Years Used Date Smoking Tobacco: Never Smokeless Tobacco: Never Comments Unknown Sex and Gender Information Value Date Recorded Sex Assigned at Not on file Legal Sex Female 4:05 PM EST Gender Identity Not on file Sexual Orientation Not on file Obstetrics History Plan of Treatment Health Maintenance Due Date Last Done Comments Breast Cancer Screening 1964 DTaP,Tdap,and Td Vaccines (1 - Tdap) 1983 Cervical Cancer Screening: P ap Smear 1985 Pneumococcal Vaccine: 50+ Ye ars (1 of 1 - PCV) 2014 Zoster Vaccines (1 of 2) 2014 Colorectal Cancer Screening: Colonoscopy 07/28/2022 HIV Screening 07/28/2022 Hepatitis C Screening 07/28/2022 Social Influencers of Health Screening 07/28/2022 COVID-19 Vaccine (1 - 2023-2 5 season) 2024 Depression Screening 08/29/2024 Influenza Vaccine (#1) 2025 RSV Immunization Adult Patie nts (1 - 1-dose 75+ series) 2039 HIB [...] patient's age to complete this topic Meningococcal B Vaccine Aged Out No l onger eligible based on patient's age to complete this topic RSV Immunization Patients Un salazar 20 months Aged Out No longer eligible b ased on patient's age to complete this topic Varicella Vaccines Aged Out No longer eligible based on patient's age to complete this topic Care Teams Supervisor Plate Forming Relationship Specialty Start Date End Date Shaheen Maharaj MD PCP - General Internal Medicine 12/04/18
--- OUTSIDE RECORDS SUMMARY | 2025-03-28 13:12 | XMS_ITS | Clinical Summary ---
Author Organization [facility] Address [address] [place] [address] Care Team Providers Care Industry Segment Specialist Name Role Phone Glenny Cash MD Primary Care Provider [phone] Allergies Active Allergy Reactions Criticality Noted Date Comments Iodinated Contrast Media Anaphylaxis High 05/26/2016 Erythromycin GI Intolerance/Nausea/Vomiting Low 05/26/2016 Medications nitrofurantoin monohydrate (MACROBID) 100 MG capsule Take 100 mg by mouth 2 (two) times a day. 0 04/19/2016 Active TOPROL XL 100 MG 24 hr tablet 03/20/2016 Active pravastatin (PRAVACHOL) 40 MG tablet 03/20/2016 Active Encounters Date Type Department Care Team Description 01/24/2025 Orders Only [facility] [address] [place] [address] Xochilt Gutierrez MD 01/24/2025 Orders Only [facility] [address] [place] [address] Xochilt Gutierrez MD from Last 3 Months Family History Medical History Relation Name Comments [...] at Not on file Legal Sex Female 11:27 AM EDT Gender Identity Not on file Sexual Orientation [...] Zoster (Shingles) Vaccine (1 of 2) 2014 COVID-19 Vaccine (1 - 2023- season) 2024 Influenza Vaccine 03/29/2025 Pap Smear (Ages 21-65) 10/14/2026 10/14/2023, 2019 Mammogram 01/24/2027 01/24/2025, /2 11/2023, 10/27/2021, Additional history exists RSV Vaccine 60 years and older and Patients (1 - 1-dose 75+ series) 2039 Hepatitis B Vaccines Aged Out No long er eligible based on patient's age to complete this topic Procedures Procedure Name Priority Date/Time Associated Diagnosis Comments US BREAST SCREENING - BILATERAL Routine 01/24/2025 1:48 PM EDT MG SCREENING DIGITAL BREAST RANDI- BILATERAL Routine 01/24/2025 1:21 PM EDT THINPREP PAP(TIPPLE BOSS) HPV SCR RFX HPV 16,18/45 Routine 10/14/2023 2:40 PM EST from Last 3 Months or Most Recently Relevant to Health Maintenance Results * US BREAST SCREENING - BILATERAL (01/24/2025 1:48 PM EDT) Anatomical Region Laterality Modality Other 01/24/2025 1:30 PM EDT 01/24/2025 1:30 PM EDT Narrative 01/26/2025 8:41 PM EDT EXAMINATION: US BREAST SCREENING, BILATERAL CLINICAL INFORMATION: Dense tissue on mammography. No family history of breast cancer. History of left-sided ultrasound guided core biopsy in June 2017 and bilateral needle biopsies in August 2011 with benign results. COMPARISON: 12/21/2023 TECHNIQUE: High-resolution grayscale sonography of all four quadrants of the bilateral breasts, the bilateral retroareolar regions, as well as the bilateral axillary regions was performed using a high frequency linear transducer. Selected archived documentation. FINDINGS: On the images submitted for review, there is no suspicious noncystic mass or area of suspicious echotexture. There is no suspicious acoustical shadowing. There is a stable area of altered echotexture in the left breast at 11:00, 5 cm from the nipple measuring 4 mm corresponding with site of previous biopsy. IMPRESSION: Screening breast ultrasound does not demonstrate any findings to suggest malignancy. ASSESSMENT: Right Breast: BI-RADS 1-Negative Left Breast: BI-RADS 2-Benign finding RECOMMENDATIONS: Continued mammographic surveillance. The ordering service and the patient will determine if ultrasound should become part of the patients breast cancer surveillance strategy. A letter was sent to the patient. Electronically signed by: Robe Champagne MD 01/26/2025 08:41 PM EDT RP Thank you for referring your patient to us, Robe Champagne MD [phone] (Electronically Signed - 01/26/2025 20:41) Copy: GLENNY CASH MD [facility] [address] [place] [address] PATIENT , Procedure Note Robe Champagne MD - 01/26/2025 EXAMINATION: US BREAST SCREENING, BILATERAL CLINICAL INFORMATION: Dense tissue on mammography. No family history of breast cancer. Historyof left- sided ultrasound guided core biopsy in June 2017 and bilateralneedle biopsies in August 2011 with benign results. COMPARISON: 12/21/2023 TECHNIQUE: High-resolution grayscale sonography of all four quadrants of thebilateral breasts, the bilateral retroareolar regions, as well as thebilateral axillary regions was performed using a high frequency lineartransducer. Selected archived documentation. FINDINGS: On the images submitted for review, there is no suspicious noncystic massor area of suspicious echotexture. There is no suspicious acousticalshadowing. There is a stable area of altered echotexture in the leftbreast at 11:00, 5 cm from the nipple measuring 4 mm corresponding with site of previous biopsy. IMPRESSION: Screening breast ultrasound does not demonstrate any findings to suggestmalignancy. ASSESSMENT: Right Breast: BI-RADS 1-Negative Left Breast: BI-RADS 2-Benign finding RECOMMENDATIONS: Continued mammographic surveillance. The ordering service and the patientwill determine if ultrasound should become part of the patients breastcancer surveillance strategy. A letter was sent to the patient. Electronically signed by: Robe Champagne MD 01/26/2025 08:41 PM EDT RPWorkstation: [id number] Thank you for referring your patient to us, Robe Champagne MD [phone] (Electronically Signed - 01/26/2025 20:41) Copy: GLENNY CASH MD [facility] [address] [place] [address] PATIENT , us Xochilt Gutierrez MD IMG LEGACY PROCEDURES Final Result * MG SCREENING DIGITAL BREAST RANDI- BILATERAL (01/24/2025 1:21 PM EDT) Anatomical Region Laterality Modality Other 01/24/2025 1:00 PM EDT 01/24/2025 1:00 PM EDT Narrative 01/27/2025 2:02 PM EDT EXAMINATION: MM SCREENING DIGITAL BREAST TOMOSYNTHESIS, BILATERAL CLINICAL INFORMATION: Routine annual screening mammography. COMPARISON: Relavant prior imaging. TECHNIQUE: Examination was performed using full breast technique. Tomosynthesis views of both breasts were obtained at 1 mm increments. Computer-aided detection was utilized by the radiologist in the interpretation of this exam. The following digital mammographic views were obtained: Bilateral CC and MLO views FINDINGS: The breasts are heterogeneously dense, which may obscure small masses (breast composition category: c). Patients in categories c and d may qualify for supplemental screening exams. There are biopsy clips in both breasts. Right Breast: There are no suspicious masses, grouped calcifications or architectural distortion. Left Breast: There are no suspicious masses, grouped calcifications or architectural distortion. IMPRESSION: RIGHT BREAST: There is no mammographic evidence of malignancy. LEFT BREAST: There is no mammographic evidence of malignancy. FINAL ASSESSMENT: BI-RADS 1: Negative. RECOMMENDATIONS: Routine annual screening mammography. The patient will receive a lay summary of the results of this breast imaging exam. Lay summaries for mammography examinations will also identify the patients personal breast tissue composition as required by state law. Electronically signed by: Gregoria Galloway MD 01/27/2025 02:02 PM EDT Thank you for referring your patient to us, Gregoria Patel [phone] (Electronically Signed - 01/27/2025 14:02) Copy: GLENNY CASH MD [address] [address] PATIENT , Procedure Note Gregoria Galloway MD - 01/27/2025 EXAMINATION: MM SCREENING DIGITAL BREAST TOMOSYNTHESIS, BILATERAL CLINICAL INFORMATION: Routine annual screening mammography. COMPARISON: Relavant prior imaging. TECHNIQUE: Examination was performed using full breast technique. Tomosynthesis viewsof both breasts were obtained at 1 mm increments. Computer-aided detectionwas utilized by the radiologist in the interpretation of this exam. The following digital mammographic views were obtained: Bilateral CC andMLO views FINDINGS: The breasts are heterogeneously dense, which may obscure small masses(breast composition category: c). Patients in categories c and d mayqualify for supplemental screening exams. There are biopsy clips in both breasts. Right Breast: There are no suspicious masses, grouped calcifications orarchitectural distortion. Left Breast: There are no suspicious masses, grouped calcifications orarchitectural distortion. IMPRESSION: RIGHT BREAST: There is no mammographic evidence of malignancy. LEFT BREAST: There is no mammographic evidence of malignancy. FINAL ASSESSMENT: BI-RADS 1: Negative. RECOMMENDATIONS: Routine annual screening mammography. The patient will receive a lay summary of the results of this breastimaging exam. Lay summaries for mammography examinations will alsoidentify the patients personal breast tissue composition as required bystate law. Electronically signed by: Gregoria Galloway MD 01/27/2025 02:02 PMEDT RP Thank you for referring your patient to us, Gregoria Patel [phone] (Electronically Signed - 01/27/2025 14:02) Copy: GLENNY CASH MD [facility] [address] [place] [address] PATIENT , Xochilt Gutierrez MD IMG LEGACY PROCEDURES Final Result * ThinPrep Pap(Asphalt Plant Operator) HPV Scr Rfx HPV 16,18/45 (10/14/2023 2:40 PM EST) Report Report [facility] Comment: Final Gynecological Cytology Report ThinPrep Pap Test, HPV Screen, Reflex HPV Genotype SPECIMEN ADEQUACY: SATISFACTORY FOR EVALUATION. INTERPRETATION: NEGATIVE FOR INTRAEPITHELIAL LESION OR MALIGNANCY. Atrophy Electronically Signed: Susannah Lisa, YANIQUE(ASCP) CLINICAL INFORMATION: LMP: NG Clinical History: RTN Biopsy Date: NG Specimen Source: Endo/Ectocervix Previous Pap Date: 06/18/2020 HPV RESULTS: HPV mRNA E6/E7 [id number] Approved: 10/17/23 Negative REF RANGE: Negative CPT Codes: 06970 ICD Codes: Z01.411, Z01.419 10/14/2023 2:40 PM EST 10/15/2023 2:46 AM EST Narrative [facility] - 10/17/2023 5:06 PM EST CC: GLENNY CASH MD, FAX Xochilt Gutierrez MD LAB AMB PATH/CYTO ORDERABLES Final Result [facility] [address], [place] from Last 3 Months or Most Recently Relevant to Health Maintenance Insurance [facility] PPO Care Teams Industry Segment Specialist Relationship Specialty Start Date End Date Glenny Cash [place] [address] PCP - General 04/13/16
== END 2025-03-28 14:12 | disposition home or self-care (01) ==
LOC: HO.HSMS 13:01
PROVIDERS: PCP Internal Medicine; Visit Provider Nurse Practitioner Family
DX: G43.709 Chronic migraine without aura, not intractable, without status migrainosus (principal); H53.9 Unspecified visual disturbance; G25.81 Restless legs syndrome; F45.8 Other somatoform disorders
CPT/HCPCS: 99214